=== PATIENT | female | born 1990 | race Hispanic/Latino ===

== ENCOUNTER 2016-07-04 11:39 | Emergency (ER) | payer MEDICAID ==
--- NOTE | 2016-07-04 12:10 | Emergency Department Report ---
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 She admits to fever and chills. Also complains of chest pain in the center. She reports that the pain is increased with lying down. She admits to nausea vomiting salicylate complains of upper abdominal pains. She denies any diarrhea pain for urination vaginal bleeding or vaginal discharge patient is not sure of her last menstrual period was either April or March. She also complains of lower abdomen - Exam Vital Signs: Vital Signs 07/04/16 11:54 Temperature 98.3 F Pulse Rate 96 H Respiratory 18 Rate Blood Pressure 125/77 O2 Sat by Pulse 100 Oximetry Physical Exam: Patient is alert and oriented 3. Cardiovascular S1-S2 regular rate and rhythm Respiratory clear to auscultation bilateral Abdomen soft nontender nondistended normal bowel sounds MSE screening note: Focused history and physical exam performed. Due to findings the following was ordered: Patient was evaluated by this MSE provider. We'll refer her to the main ER. Abdominal protocol ordered. ED Disposition for MSE Condition: Stable Instructions: Abdominal Pain (ED)
[2016-07-04 12:51] LABS: Basophils % (Auto) 0.2 % (0.0-1.8); Eosinophils % (Auto) 0.4 % (0.0-4.3); Hematocrit 39.7 % (30.3-42.9); Mean Corpuscular HGB Conc 33 % (30-34); Mean Corpuscular Hemoglobin 27 pg (28-32); Mean Corpuscular Volume 83 fl (79-97); Platelet Count 212 K/mm3 (140-440); Red Blood Count 4.77 M/mm3 (3.65-5.03); Red Cell Distribution Width 13.8 % (13.2-15.2); White Blood Count 7.6 K/mm3 (4.5-11.0)
[2016-07-04 13:14] LABS: Alanine Aminotransferase 62 units/L (7-56); Albumin 3.8 g/dL (3.9-5); Albumin/Globulin Ratio 1.2 %; Alkaline Phosphatase 57 units/L (35-129); Anion Gap 20 mmol/L; Bilirubin,Total 0.4 mg/dL (0.1-1.2); Blood Urea Nitrogen 5 mg/dL (7-17); Calcium 8.9 mg/dL (8.4-10.2); Carbon Dioxide 21 mmol/L (22-30); Chloride 100.8 mmol/L (98-107); Glucose 83 mg/dL (65-100); Lipase 15 units/L (13-60); Potassium 4.3 mmol/L (3.6-5.0); Sodium 137 mmol/L (137-145); Total Protein 7.1 g/dL (6.3-8.2)
[2016-07-04 19:59] LABS: Bilirubin,Urine NEG (Negative); Blood,Urine NEG (Negative); Ketones,Urine 20 mg/dL (Negative); Leukocyte Esterase,Urine TR (Negative); Mucus,Urine 2+ /HPF; Nitrite,Urine NEG (Negative); Protein,Urine <15 mg/dL mg/dL (Negative); Urobilinogen,Urine < 2.0 mg/dL (<2.0)
[2016-07-04] MEDS ORDERED: ZOFRAN IV ONE (20:29)
[2016-07-04] MEDS ORDERED: TYLENOL PO ONE (20:30)
--- NOTE | 2016-07-04 20:56 | Emergency Department Report ---
- General Chief Complaint: Abdominal Pain Stated Complaint: CHEST PAIN/VOMITTING/CHILLS Time Seen by Provider: 07/04/16 12:04 Source: patient Mode of arrival: Ambulatory Limitations: No Limitations - History of Present Illness Initial Comments: 26-year-old female with a past medical history asthma, borderline diabetes, and borderline hypertension presents to the hospital complains of cough and cold symptoms 10 days. Patient is a couple of a green sputum. Fever high of 102. Also has intermittent nausea vomiting and epigastric pain. 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 Patient informed that she has a positive test she states she has several home positive test as well. LMP possibly 04/02/2016. Patient denies vaginal discharge, bleeding, or painful urination. No care. Patient states she has never had a pelvic before in her life and this is her first . Patient states she did receive her flu shot this year - Related Data Home Medications Medication Instructions Recorded Confirmed Last Taken Pnv95/Ferrous Fumarate/FA 1 tab PO DAILY 07/04/16 07/04/16 Unknown [ Caplet] Previous Rx's Medication Instructions Recorded Last Taken Type Ondansetron [Zofran Odt] 4 mg PO Q8HR PRN #20 tab.rapdis 07/04/16 Unknown Rx guaiFENesin DM [Robitussin Dm] 10 ml PO Q6HR PRN #20 udc 07/04/16 Unknown Rx Allergies Allergy/AdvReac Type Severity Reaction Status Date / Time terfenadine [From Seldane] Allergy Rash Verified 06/16/16 14:59 ED Review of Systems ROS: Stated complaint: CHEST PAIN/VOMITTING/CHILLS Other details as noted in HPI Comment: All other systems reviewed and negative Other: Constitutional: As per HPI Eyes: No eye pain visual changes ENT: No ear pain or throat pain Neck: Denies pain Respiratory: As per HPI Cardiovascular: Denies chest pain, palpitations, syncope GI: As per HPI : Denies dysuria, urinary frequency, or urgency Musculoskeletal: Denies back pain, joint swelling Skin: Denies rash, lesions, erythema Neurologic: Denies headache, numbness, weakness Psychiatric: Denies suicidal ideation, hallucinations ED Past Medical Hx - Past Medical History Previous Medical History?: Yes Hx Hypertension: Yes ("borderline" not being treated) Hx Diabetes: Yes ("borderline" not being treated) Hx GERD: Yes Hx Headaches / Migraines: Yes (migraines) Hx Asthma: Yes (last used inhaler 2 weeks ago) Hx HIV: No - Surgical History Past Surgical History?: No - Social History Smoking Status: Never Smoker Substance Use Type: None - Medications Home Medications: Home Medications Medication Instructions Recorded Confirmed Last Taken Type Ondansetron [Zofran Odt] 4 mg PO Q8HR PRN #20 tab.rapdis 07/04/16 Unknown Rx Pnv95/Ferrous Fumarate/FA 1 tab PO DAILY 07/04/16 07/04/16 Unknown History [ Caplet] guaiFENesin DM [Robitussin Dm] 10 ml PO Q6HR PRN #20 udc 07/04/16 Unknown Rx ED Physical Exam - General Limitations: No Limitations - Other Other exam information: General: No limitations, patient is alert in no acute distress Head exam: Atraumatic, normocephalic Eyes exam: Normal appearance, pupils equal reactive to light, extraocular movements intact ENT: Moist mucous membrane, normal oropharynx Neck exam: Normal inspection, full range of motion, no meningismus nontender Respiratory exam: Clear to auscultation bilateral, no wheezes, rales, crackles Cardiovascular: Normal rate and rhythm, normal heart sounds Abdomen: Soft, nondistended, epigastric tenderness, with normal bowel sounds, no rebound, or guarding Extremity: Full range of motion normal inspection no deformity Back: Normal Inspection, full range of motion, no tenderness Neurologic: Alert, oriented x3, cranial nerves intact, no motor or sensory deficit Psychiatric: normal affect, normal mood Skin: Warm, dry, intact ED Course Vital Signs 07/04/16 07/04/16 07/04/16 11:54 21:28 21:34 Temperature 98.3 F Pulse Rate 96 H Respiratory 18 18 18 Rate Blood Pressure 125/77 Blood Pressure [Left] O2 Sat by Pulse 100 100 Oximetry 07/04/16 22:08 Temperature Pulse Rate 90 Respiratory 18 Rate Blood Pressure Blood Pressure 118/78 [Left] O2 Sat by Pulse 100 Oximetry - Reevaluation(s) Reevaluation #1: 07/04/16 20:56 Normal saline, Zofran, and Tylenol - Consultations Consultation #1: 07/04/16 20:[address] Barragan label press operator on-call and agrees that it is a sinus rhythm EKG ED Medical Decision Making - Lab Data Result diagrams: 07/04/16 12:36 07/04/16 12:36 Influenza negative - EKG Data -: EKG Interpreted by Me (sinus rate [address] elevation or T-wave inversions) - Radiology Data Radiology results: report reviewed Abdominal ultrasound: Cholelithiasis without findings of cholecystitis. Hepatic steatosis Ultrasound OB: Single living IUP 17 weeks and 4 days - Medical Decision Making Patient likely has a viral syndrome. Lab work unremarkable. Ultrasound shows cholelithiasis but no cholecystitis. She'll be treated symptomatically with nausea medication and Tylenol. Outpatient follow-up and care will be encouraged - Differential Diagnosis gastroenteritis, viral syndrome, biliary colic, UTI, morning sickness Critical Care Time: No Critical care attestation.: If time is entered above; I have spent that time in minutes in the direct care of this critically ill patient, excluding procedure time. ED Disposition Clinical Impression: 17 weeks gestation of , Cholelithiasis, Viral syndrome Disposition: DISCHARGED TO HOME OR SELFCARE Is pt being admited?: No Does the pt Need Aspirin: No Condition: Stable Instructions: Viral Syndrome (ED), Acute Nausea and Vomiting (ED), Biliary Colic (ED) Additional Instructions: Take Tylenol as needed for pain. Follow-up with the [facility] doctor provided and primary care doctor. Return if symptoms worsen Prescriptions: guaiFENesin DM [Robitussin Dm] 10 ml PO Q6HR PRN #20 udc PRN Reason: Cough Ondansetron [Zofran Odt] 4 mg PO Q8HR PRN #20 tab.rapdis PRN Reason: Nausea And Vomiting Referrals: RUDY FOSS MD [Primary Care Provider] - 3-5 Days MERARY SANDERS MD [Staff Physician] - 3-5 Days (residential interior designer ) Time of Disposition: 23:24
[2016-07-04] MEDS ORDERED: NACL 0.9% 1000 ML 1,000 ML IV SCH (21:00)
[2016-07-05 00:14] VITALS: BP 118/70
--- NOTE | 2016-07-07 18:15 | Ultrasound Report ---
FINAL REPORT EXAM: US OB \T\gt; = 14 WEEKS FETUS HISTORY: pregancy, n,v COMPARISONS: None. FINDINGS: Limited 2nd trimester transabdominal grayscale, color and M-mode ultrasound Single living intrauterine gestation with recorded cardiac activity of 163 beats per minute. Fundal placenta. Amniotic fluid volume is within normal limits. The cervix appears closed and measures approximately 3.9 cm in length. Biparietal diameter is 3.8 cm. Head circumference is 13.8 cm. Abdominal circumference is 11.8 cm. Femoral length is 2.2 cm. Composite measurements correspond to estimated gestational age 17 weeks 4 days and estimated delivery date of 12/08/2016. IMPRESSION: Single living intrauterine without evident complication and with estimated gestational age of 17 weeks 4 days. Follow-up detailed anatomy scan is recommended at 20 weeks gestational age.
--- NOTE | 2016-07-07 18:15 | Ultrasound Report ---
FINAL REPORT EXAM: US ABDOMEN LIMITED HISTORY: upper abd pain n,v COMPARISONS: None FINDINGS: Grayscale and color Doppler ultrasound evaluation of the right upper abdomen Liver is normal in size and contour. Hepatic parenchymal echogenicity is diffusely increased. No parenchymal lesion identified. No intra or extrahepatic biliary ductal dilatation. The common duct measures approximately 4 millimeters in caliber. There is an 8 millimeter echogenic shadowing stone in the gallbladder lumen. Gallbladder wall measures approximately 2-3 millimeters. No pericholecystic edema. Imaged portion of the pancreatic head is sonographically unremarkable. The remainder of the pancreas is not well seen secondary to overlying bowel gas. No abdominal ascites or free fluid in Morison's pouch. The right kidney measures up to 12 cm in length and is without hydronephrosis or echogenic shadowing foci to suggest nephrolithiasis. IMPRESSION: Cholelithiasis without additional sonographic findings of cholecystitis. Hepatic steatosis.
== END 2016-07-04 23:55 | disposition home or self-care (01) ==
LOC: ED 11:39
DX: O99.612 Diseases of the digestive system complicating pregnancy, second trimester (principal); K80.20 Calculus of gallbladder without cholecystitis without obstruction; B34.9 Viral infection, unspecified; I10 Essential (primary) hypertension; E11.9 Type 2 diabetes mellitus without complications; K52.9 Noninfective gastroenteritis and colitis, unspecified; J45.909 Unspecified asthma, uncomplicated; Z3A.17 17 weeks gestation of pregnancy
CPT/HCPCS: 36415; 76705; 76805; 80053; 81001; 83690; 84702; 84703; 85025; 87400; 93005; 93010; 96361; 96374; 99284; J2405; J7030

== ENCOUNTER 2016-10-26 18:09 | Outpatient (CLI) | payer MEDICAID ==
[2016-10-26] MEDS ORDERED: LACTATED RINGERS 500 ML IV ONE (18:36)
[2016-10-26 18:40] VITALS: BP 99/60
[2016-10-26] MEDS ORDERED: VISTARIL PO PRN (21:30)
== END 2016-10-26 21:55 | disposition home or self-care (01) ==
LOC: TRG 18:09 → LD 18:11 → TRG 18:13
PROVIDERS: ATTEND Obstetrics & Gynecology
DX: O47.1 False labor at or after 37 completed weeks of gestation (principal); Z3A.38 38 weeks gestation of pregnancy
CPT/HCPCS: 59025; Q0177

== ENCOUNTER 2016-11-05 17:19 | Outpatient (CLI) | payer MEDICAID ==
[2016-11-05 18:12] LABS: Bilirubin,Urine NEG (Negative); Blood,Urine NEG (Negative); Ketones,Urine 20 mg/dL (Negative); Leukocyte Esterase,Urine NEG (Negative); Mucus,Urine 2+ /HPF; Nitrite,Urine NEG (Negative); Protein,Urine <15 mg/dL mg/dL (Negative); Urobilinogen,Urine < 2.0 mg/dL (<2.0)
[2016-11-05] MEDS ORDERED: LACTATED RINGERS 1,000 ML IV ONE (19:23)
[2016-11-05] MEDS ORDERED: ZOFRAN IV ONE (19:23)
[2016-11-05 20:12] LABS: Basophils % (Auto) 0.3 % (0.0-1.8); Eosinophils % (Auto) 0.4 % (0.0-4.3); Hematocrit 33.7 % (30.3-42.9); Hemoglobin 11.5 gm/dl (10.1-14.3); Mean Corpuscular HGB Conc 34 % (30-34); Mean Corpuscular Hemoglobin 28 pg (28-32); Mean Corpuscular Volume 83 fl (79-97); Platelet Count 181 K/mm3 (140-440); Red Blood Count 4.09 M/mm3 (3.65-5.03); Red Cell Distribution Width 12.9 % (13.2-15.2); White Blood Count 9.2 K/mm3 (4.5-11.0)
[2016-11-05 20:28] LABS: Alanine Aminotransferase 8 units/L (7-56); Albumin 3.2 g/dL (3.9-5); Albumin/Globulin Ratio 0.9 %; Alkaline Phosphatase 113 units/L (35-129); Amylase 32 units/L (27-131); Anion Gap 18 mmol/L; Blood Urea Nitrogen 6 mg/dL (7-17); Calcium 8.9 mg/dL (8.4-10.2); Carbon Dioxide 23 mmol/L (22-30); Chloride 101.7 mmol/L (98-107); Glucose 82 mg/dL (65-100); Lipase 15 units/L (13-60); Potassium 3.9 mmol/L (3.6-5.0); Sodium 139 mmol/L (137-145); Total Protein 6.9 g/dL (6.3-8.2)
[2016-11-05] MEDS ORDERED: AMBIEN PO PRN (22:08)
[2016-11-05] MEDS ORDERED: COLACE PO PRN (22:08)
[2016-11-05] MEDS ORDERED: MILK OF MAGNESIA PO PRN (22:08)
[2016-11-05] MEDS ORDERED: TYLENOL PO PRN (22:08)
[2016-11-05] MEDS ORDERED: ALUM-MAG HYDROX-SIMETH 200-200-20MG/5ML PO PRN (22:08)
[2016-11-05] MEDS ORDERED: ZOFRAN IV PRN (22:25)
--- NOTE | 2016-11-05 23:03 | Ultrasound Report ---
FINAL REPORT EXAM: US OB BPP WO NON-STRESS HISTORY: well being COMPARISONS: 07/04/2016 FINDINGS: Limited transabdominal 3rd trimester ultrasound for evaluation of amniotic fluid index and biophysical profile Single living intrauterine . Amniotic fluid index is approximately 5 centimeters. Biophysical profile score is 8/8 with 2 points awarded individually for breathing movements, motion, posture and tone and amniotic fluid volume. Recorded cardiac activity of 153 beats per minute. IMPRESSION: Amniotic fluid index is within normal limits and biophysical profile score is 8/8.
--- NOTE | 2016-11-05 23:06 | Ultrasound Report ---
FINAL REPORT EXAM: US OB LIMITED HISTORY: well being; SPENCER COMPARISONS: None. FINDINGS: Limited transabdominal 3rd trimester grayscale, color and M-mode ultrasound Single living intrauterine . Amniotic fluid index is approximately 5 centimeters. Biophysical profile score is 8/8 with 2 points awarded individually for breathing movements, motion, posture and tone and amniotic fluid volume. Recorded cardiac activity of 163 beats per minute. Estimated gestational age is 36 weeks 0 days, which is concordant with 2nd trimester ultrasound dating. IMPRESSION: Single living intrauterine without evident complication, as above.
--- NOTE | 2016-11-06 01:29 | Ultrasound Report ---
FINAL REPORT EXAM: US ABDOMEN LIMITED HISTORY: RUQ pain TECHNIQUE: Real-time sonography was performed of the right upper quadrant and images are submitted for interpretation. PRIORS: None. FINDINGS: The liver has a normal homogeneous echotexture without focal lesions. There is a 1.9 cm stone in an otherwise normal-appearing gallbladder. There is no evidence of biliary dilatation, the common bile duct measures 5 mm. The pancreas has a normal echogenicity and appearance. The visualized segments of the abdominal aorta and inferior vena cava appear normal. The right kidney appears normal in size, shape and echogenicity, measuring 12.0 x 5.4 x 6.3 cm. IMPRESSION: Cholelithiasis without sonographic evidence of acute cholecystitis. No significant interval change from the previous exam.
[2016-11-06] MEDS: LACTATED RINGERS 1,000 ML IV SCH ×2 (02:02→08:53)
[2016-11-06 04:59] LABS: Bacteria,Urine 2+ /HPF (Negative); Bilirubin,Urine NEG (Negative); Blood,Urine NEG (Negative); Ketones,Urine 20 mg/dL (Negative); Leukocyte Esterase,Urine NEG (Negative); Mucus,Urine 3+ /HPF; Nitrite,Urine NEG (Negative); Protein,Urine <15 mg/dL mg/dL (Negative); Urobilinogen,Urine < 2.0 mg/dL (<2.0)
[2016-11-06] MEDS ORDERED: PRENATAL VITAMIN PO SCH (10:00)
--- NOTE | 2016-11-06 11:38 | Ultrasound Report ---
COMPLETE OB ULTRASOUND: Gestation: talbert Position: cephalic SPENCER = 8.1 cm Heart Rate: 135 BPM BPD: 8.8 cm = 35 w 2 d HC: 31.7 cm = 35 w 4 d AC: 29.1 cm = 33 w 0 d FL: 6.8 cm = 34 w 5 d HC/AC Ratio: 1.09 Cephalic Index: 79.8 Estimated Weight: 2351 grams Clinical age = 36 w 1 d EDC: 12/03/16 US Gest. Age = 34 w 4 d EDC: 12/14/16
[2016-11-06 12:22] VITALS: BP 104/57
--- NOTE | 2016-11-06 13:19 | History and Physical Report ---
History of Present Illness Date of examination: 11/05/16 Date of admission: 11/05/16 Chief complaint: nausea and vomiting abdominal pain ruq cramping pain History of present illness: This is a 26 yo at 36 weeks came in for abdominal pain and nausea and vomiting for the least 3 days. She was unable to keep any food down. She is a patient of [place] that sees Alma Delia JENKINS exclusively. She has ahx of bipolar on no drugs per ( ER). She has cholethiasis without cholystitis. She is morbidly obesed. 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 ) - Obstetrical History : 1 Medications and Allergies Allergies Allergy/AdvReac Type Severity Reaction Status Date / Time terfenadine [From Seldane] Allergy Rash Verified 06/16/16 14:59 Home Medications Medication Instructions Recorded Confirmed Last Taken Type Ondansetron [Zofran Odt] 4 mg PO Q8HR PRN #20 tab.rapdis 07/04/16 Unknown Rx Pnv95/Ferrous Fumarate/FA 1 tab PO DAILY 07/04/16 07/04/16 Unknown History [ Caplet] guaiFENesin DM [Robitussin Dm] 10 ml PO Q6HR PRN #20 udc 07/04/16 Unknown Rx Pantoprazole [Protonix] 40 mg PO BID PRN #60 tablet 11/06/16 Unknown Rx oxyCODONE /ACETAMINOPHEN [Percocet 1 tab PO Q6HR PRN #30 tablet 11/06/16 Unknown Rx 5/325] Active Meds: Active Medications Acetaminophen (Tylenol) 650 mg PO Q4H PRN PRN Reason: Pain MILD(1-3)/Fever >100.5/MURPHY Al Hydrox/Mg Hydrox/Simethicone (Alum-Mag Hydrox-Simeth [phone]/5ml) 30 ml PO Q6H PRN PRN Reason: Indigestion Docusate Sodium (Colace) 100 mg PO Q12H PRN PRN Reason: Constipation Lactated Ringer's (Lactated Ringers) 1,000 mls @ 125 mls/hr IV DIRECT MARLENE Last Admin: 11/06/16 08:53 Dose: 125 mls/hr Magnesium Hydroxide (Milk Of Magnesia) 30 ml PO QHS PRN PRN Reason: Laxative Effect Multivitamins/Iron/Calcium ( Vitamin) 1 each PO QDAY MARLENE Ondansetron HCl (Zofran) 4 mg IV Q8H PRN PRN Reason: Nausea And Vomiting Zolpidem Tartrate (Ambien) 10 mg PO ONCE PRN PRN Reason: Sleep Last Admin: 11/06/16 01:53 Dose: 10 mg Review of Systems Gastrointestinal: abdominal pain, nausea, vomiting Genitourinary: leakage of fluid - Vital Signs Vital signs: Vital Signs Pulse BP 95 H 142/96 11/05/16 17:57 11/05/16 17:57 Temp Pulse Resp BP Pulse Ox 97.2 F L 89 18 104/57 98 11/06/16 12:21 11/06/16 12:21 11/06/16 12:21 11/06/16 12:21 11/06/16 12:21 - Physical Exam Breasts: Positive: deferred Cardiovascular: Regular rate, Normal S1 Lungs: Positive: Clear to auscultation, Normal air movement Abdomen: Positive: normal appearance, soft, tenderness (urq), normal bowel sounds Genitourinary (Female): Positive: normal external genitalia, normal perenium Vulva: both: normal Vagina: Positive: normal moisture Uterus: Positive: normal size, normal contour Anus/Rectum: Positive: normal perianal skin, heme negative Extremities: Positive: normal Deep Tendon Reflex Grade: Normal +2 - Obstetrical FHR: category 1 Cervical Dilatation: 1 Cervical Effacement Percentage: 0 station: -4 Uterine Contraction Frequency (min): none Uterine Contraction Duration: none Uterine Tone Measurement Phase: Resting Results Result Diagrams: 11/05/16 19:36 11/05/16 19:36 Abnormal lab results 11/05/16 11/05/16 Range/Units 19:36 19:36 RDW 12.9 L (13.2-15.2) % Seg Neutrophils % 70.1 H (40.0-70.0) % BUN 6 L (7-17) mg/dL Creatinine 0.4 L (0.7-1.2) mg/dL Albumin 3.2 L (3.9-5) g/dL All other labs normal. Ultrasound: report reviewed (BPP 12/16 EDC 12/03/16 36 weeks SPENCER 8.1 FHR 135 EFW 2351 ) Assessment and Plan 1. Head IUP at 36 weeks 2. Abdominal Pain H/O Gallstones 3. Mildly Decreased SPENCER (Initial 5.2 cm and Repeated today at 8.1 cm) 4. Borderline IUGR - EFW at 10% with AC at 2% 5. Bipolar 6. MO 1. Cord Dopplers because of 10% weight prior to discharge if normal will discharge home 2. Encourage to keep schedduled appt with [facility] 3. Await GI consult ( appreciate consult) 4.. Pysch consult sent ( consider delinquency prevention social worker or case management )
--- NOTE | 2016-11-06 14:01 | Consultation ---
History of Present Illness Consult date: 11/06/16 Requesting physician: VITALIY WOO History of present illness: This is a 26 yo at 36 weeks came in for abdominal pain and nausea and vomiting for the least 3 days. Reports pain in middle to lower abd area. Denies Vag Bleeding Denies gush of fluid Occ ctx BPP/SPENCER on 11/05/16 initially 5.2 - Neg for rupture Positive Trich - On Flagyl BPP Repeated today EFW at 2351 grams (10%) with AC at 2% and SPENCER now up to 8.1 cm Seen by GI today for h/o GB ds - report pending She was unable to keep any food down. - Now hungry and wants to eat She is a patient of [facility] that sees Alma Delia DAVIS exclusively. She has a hx of bipolar on no drugs per ( ER). She has cholethiasis without cholystitis. 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 ) - Obstetrical History : 1 Medications and Allergies Allergies Allergy/AdvReac Type Severity Reaction Status Date / Time terfenadine [From Seldane] Allergy Rash Verified 06/16/16 14:59 Home Medications Medication Instructions Recorded Confirmed Last Taken Type Ondansetron [Zofran Odt] 4 mg PO Q8HR PRN #20 tab.rapdis 07/04/16 Unknown Rx Pnv95/Ferrous Fumarate/FA 1 tab PO DAILY 07/04/16 07/04/16 Unknown History [ Caplet] guaiFENesin DM [Robitussin Dm] 10 ml PO Q6HR PRN #20 udc 07/04/16 Unknown Rx Active Meds: Active Medications Acetaminophen (Tylenol) 650 mg PO Q4H PRN PRN Reason: Pain MILD(1-3)/Fever >100.5/MURPHY Al Hydrox/Mg Hydrox/Simethicone (Alum-Mag Hydrox-Simeth [phone]/5ml) 30 ml PO Q6H PRN PRN Reason: Indigestion Docusate Sodium (Colace) 100 mg PO Q12H PRN PRN Reason: Constipation Lactated Ringer's (Lactated Ringers) 1,000 mls @ 125 mls/hr IV DIRECT MARLENE Last Admin: 11/06/16 08:53 Dose: 125 mls/hr Magnesium Hydroxide (Milk Of Magnesia) 30 ml PO QHS PRN PRN Reason: Laxative Effect Multivitamins/Iron/Calcium ( Vitamin) 1 each PO QDAY MARLENE Ondansetron HCl (Zofran) 4 mg IV Q8H PRN PRN Reason: Nausea And Vomiting Zolpidem Tartrate (Ambien) 10 mg PO ONCE PRN PRN Reason: Sleep Last Admin: 11/06/16 01:53 Dose: 10 mg - Vital Signs Vital signs: Vital Signs Pulse BP 95 H 142/96 11/05/16 17:57 11/05/16 17:57 Temp Pulse Resp BP Pulse Ox 97.2 F L 89 18 104/57 98 11/06/16 12:21 11/06/16 12:21 11/06/16 12:21 11/06/16 12:21 11/06/16 12:21 Results Result Diagrams: 11/05/16 19:36 11/05/16 19:36 Abnormal lab results 11/05/16 11/05/16 Range/Units 19:36 19:36 RDW 12.9 L (13.2-15.2) % Seg Neutrophils % 70.1 H (40.0-70.0) % BUN 6 L (7-17) mg/dL Creatinine 0.4 L (0.7-1.2) mg/dL Albumin 3.2 L (3.9-5) g/dL All other labs normal. Assessment and Plan 1. Head IUP at 36 weeks 2. Abdominal Pain H/O Gallstones 3. Mildly Decreased SPENCER (Initial 5.2 cm and Repeated today at 8.1 cm) 4. Borderline IUGR - EFW at 10% with AC at 2% 5. Bipolar 6. MO Recommendations: 1. Please obtain Cord Dopplers prior to discharge 2. If dopplers normal would allow discharge with close [facility] FU 3. Patient has apt with [facility] tomorrow 4. Weekly FU with [facility] for A-P Surveillance 5. Call for DFM's and continue hydration 6. Discussed with both Dr. Yanni Woo and RYAN Flannery 7. support services rep if Pysch issues
--- NOTE | 2016-11-06 16:03 | Ultrasound Report ---
Umbilical cord Doppler imaging: well being. The fetus is approximately 36 weeks one day of gestation. Imaging of 3 free umbilical loops demonstrate an average systolic to diastolic ratio 2.72. There is a persistent normal waveform. This lies just under the 75 percentile range. The average resistive index is 0.63 which falls midway between the 50th and 95th percentile.
--- NOTE | 2016-11-06 16:21 | Discharge Summary ---
Providers - Providers Date of Admission: 11/05/16 Date of discharge: 11/06/16 Attending physician: VITALIY PHILLIPS MD 11/05/16 22:08 Consult to Physician [CONS] Routine Consulting Provider: VITALIY PHILLIPS Reason For Exam: [facility] Place consult to:: [place] Notified:: yes Phone number called:: [phone] Was contact made?: Yes If yes, spoke with:: Wang Time called:: 10:20 Comment:: Megan Yuan 11/05/16 22:27 Consult to Physician [CONS] Routine Consulting Provider: JAMES RAVI Reason For Exam: nausea and vomiting in third trimester Place consult to:: gastroeterology Notified:: OFFICE Phone number called:: [phone] Was contact made?: Yes If yes, spoke with:: SCAR Time called:: 23:36 Comment:: DR RAVI CALLED BACK Primary care physician: RUDY FOSS Hospitalization Reason for admission: other (n/v , gall stone , low fluid ) Discharge diagnosis: other (seen by GI and psych and MFM rescan BPP 8/8 Sherley from 5 to 8 and diastolic flow nl ) Plan - Discharge Medications Prescriptions: oxyCODONE /ACETAMINOPHEN [Percocet 5/325] 1 tab PO Q6HR PRN #30 tablet PRN Reason: Pain Pantoprazole [Protonix] 40 mg PO BID PRN #60 tablet PRN Reason: reflux - Provider Discharge Summary Additional instructions: [] Smoking cessation referral if applicable(refer to patient education folder for contact #) [] Refer to [employer] Booklet Call your doctor immediately for: * Fever > 100.5 * Heavy vaginal bleeding ( >1 pad per hour) * Severe persistent headache * Shortness of breath * Reddened, hot, painful area to leg or breast * Drainage or odor from incision. * Keep incision clean and dry at all times and follow doctor's instructions regarding bathing/showering - Follow up plan Follow up: RUDY FOSS MD [Primary Care Provider] - 7 Days
== END 2016-11-06 15:55 | disposition home or self-care (01) ==
LOC: TRG 17:19 → LD 17:21 → TRG 11-06 15:55
PROVIDERS: ATTEND Obstetrics & Gynecology
DX: O99.613 Diseases of the digestive system complicating pregnancy, third trimester (principal); K80.20 Calculus of gallbladder without cholecystitis without obstruction; O99.313 Alcohol use complicating pregnancy, third trimester; O99.333 Smoking (tobacco) complicating pregnancy, third trimester; O21.2 Late vomiting of pregnancy; O26.893 Other specified pregnancy related conditions, third trimester; R10.11 Right upper quadrant pain; Z3A.36 36 weeks gestation of pregnancy
CPT/HCPCS: 36415; 76815; 76819; 80053; 81001; 82150; 83690; 85025; J2405; J7120; 59025; 76705; 76816; 76820; 86850; 86900; 86901; 96360; 96361

== ENCOUNTER 2016-11-08 21:45 | Outpatient (CLI) | payer MEDICAID ==
[2016-11-08] MEDS ORDERED: LACTATED RINGERS 500 ML IV ONE (21:58)
[2016-11-08 22:18] VITALS: BP 111/66
[2016-11-08 22:36] LABS: Bacteria,Urine 1+ /HPF (Negative); Bilirubin,Urine NEG (Negative); Blood,Urine NEG (Negative); Ketones,Urine TR mg/dL (Negative); Leukocyte Esterase,Urine TR (Negative); Mucus,Urine 3+ /HPF; Nitrite,Urine NEG (Negative); Urobilinogen,Urine < 2.0 mg/dL (<2.0)
[2016-11-08] MEDS ORDERED: ROCEPHIN 1,000 MG in NACL 0.9% 50 ML IV ONE (22:44)
[2016-11-08] MEDS ORDERED: LACTATED RINGERS 1,000 ML ONE (22:44)
[2016-11-08] MEDS ORDERED: ROCEPHIN/NS 1 GM/50 ML 1 GM/50 ML BAG IV SCH (23:00)
== END 2016-11-08 23:50 | disposition home or self-care (01) ==
LOC: TRG 21:45
PROVIDERS: ATTEND Obstetrics & Gynecology
DX: O47.03 False labor before 37 completed weeks of gestation, third trimester (principal); Z3A.36 36 weeks gestation of pregnancy
CPT/HCPCS: 59025; 81001; 96360; 96365; J0696; J7120

== ENCOUNTER 2016-11-12 18:09 | Outpatient (CLI) | payer MEDICAID ==
[2016-11-12 19:15] VITALS: BP 110/64
--- NOTE | 2016-11-13 16:35 | Ultrasound Report ---
Limited transabdominal OB ultrasound. Findings: A single IUP is identified in a cephalic presentation. The SPENCER is normal at 11 cm area heart rate is 126 beats per minute.
--- NOTE | 2016-11-13 16:36 | Ultrasound Report ---
BIOPHYSICAL PROFILE: 2 - breathing movements 2 - movements 2 - posture and tone 2 - Qualitative amniotic fluid volume 8 - TOTAL SCORE OF POSSIBLE 8 Heart Rate (bpm) 146
== END 2016-11-12 20:30 | disposition home or self-care (01) ==
LOC: TRG 18:09 → LD 18:33 → TRG 20:30
PROVIDERS: ATTEND Obstetrics & Gynecology
DX: O47.03 False labor before 37 completed weeks of gestation, third trimester (principal); Z3A.36 36 weeks gestation of pregnancy
CPT/HCPCS: 76815; 76819

== ENCOUNTER 2016-11-17 14:45 | Outpatient (CLI) | payer MEDICAID ==
--- NOTE | 2016-11-18 08:59 | Ultrasound Report ---
ULTRASOUND BIOPHYSICAL PROFILE: History: well being Technique: Transabdominal ultrasound with Doppler interrogation. 2 - breathing movements 2 - movements 2 - posture and tone 2 - Qualitative amniotic fluid volume 8 - TOTAL SCORE OF POSSIBLE 8 Heart Rate (bpm) 132
--- NOTE | 2016-11-18 08:59 | Ultrasound Report ---
ULTRASOUND OB LIMITED History: well being Technique: Transabdominal ultrasound with Doppler interrogation. Gestation: Single Position: Cephalic Amniotic Fluid: Normal SPENCER = 11.1 cm Heart Rate: 138 BPM
[2016-11-19 17:19] VITALS: BP 129/64
== END 2016-11-17 16:00 | disposition home or self-care (01) ==
LOC: TRG 14:45
PROVIDERS: ATTEND Obstetrics & Gynecology
DX: O47.03 False labor before 37 completed weeks of gestation, third trimester (principal); Z3A.36 36 weeks gestation of pregnancy
CPT/HCPCS: 59025; 76815; 76819

== ENCOUNTER 2016-11-18 17:48 | Inpatient (IN) | payer MEDICAID ==
[2016-11-18] MEDS ORDERED: MINERAL OIL PO PRN (19:08)
[2016-11-18] MEDS ORDERED: AMBIEN PO PRN (19:08)
[2016-11-18] MEDS ORDERED: SUBLIMAZE IV PRN (19:08)
[2016-11-18] MEDS ORDERED: BRETHINE SUB-Q PRN (19:08)
[2016-11-18] MEDS ORDERED: XYLOCAINE 2% INFILTRATI ONE (19:08)
[2016-11-18] MEDS ORDERED: ePHEDrine SULFATE IV PRN (19:08)
[2016-11-18] MEDS ORDERED: BRETHINE IVP PRN (19:08)
--- NOTE | 2016-11-18 19:08 | History and Physical Report ---
History of Present Illness Date of examination: 11/18/16 Date of admission: 11/18/16 17:48 History of present illness: 26 yo EDC 12/04/16 @ 37.5 weeks gestation presents to labor and delivery for induction secondary to oligohydramnios with SPENCER (4.2cm) voiced by Dr. Gambino as 4cm. Late entry into care. Prental course complicated by bipolar disorder without medications, resistant trichomonas with positive LINUS x 2. Given Flagyl 500mg BID 11/17/16 for third attempt to treat. Positive for HSV2 with Valtrex, denies outbreaks or prodrome. Positive history of cholelithiasis with episodes of acute gastric insult of nausea, vomiting and pain. Treatment with PPIs ineffective Past History Past Medical History: other (bipolar disorder, cholelithiasis) Past Surgical History: no surgical history [employer] History: trichomonas Social history: lives with family - Obstetrical History Expected Date of Delivery: 12/04/16 Actual Gestation: 37 Week(s) 6 Day(s) : 1 Medications and Allergies Allergies Allergy/AdvReac Type Severity Reaction Status Date / Time terfenadine [From Seldane] Allergy Rash Verified 06/16/16 14:59 Review of Systems All systems: negative - Physical Exam Abdomen: Positive: normal appearance, soft, normal bowel sounds Genitourinary (Female): Positive: normal external genitalia, normal perenium Results Result Diagrams: 11/18/16 19:54 All other labs normal. Assessment and Plan A: IUP at 37.4 weeks oligohydramnios Unfavorable cervix Bipolar Disorder Trichomonas with inadequate treatment HSV 2 Morbid Obesity P: Active Induction of Labor Flagyl IV Start Trileptal after delivery
[2016-11-18] MEDS: CYTOTEC VAGINAL SCH (19:30)
[2016-11-18] MEDS ORDERED: PITOCin/NS 20 UNIT/1000ML DRIP 20 UNITS/1,000 ML BAG IV SCH (20:00)
[2016-11-18] MEDS ORDERED: PITOCin/NS 30 UNIT/500ML 30 UNITS/500 ML BAG IV SCH ×2 (20:00)
[2016-11-18 20:24] LABS: Hematocrit 36.2 % (30.3-42.9); Mean Corpuscular HGB Conc 33 % (30-34); Mean Corpuscular Hemoglobin 28 pg (28-32); Mean Corpuscular Volume 83 fl (79-97); Platelet Count 175 K/mm3 (140-440); Red Blood Count 4.38 M/mm3 (3.65-5.03); Red Cell Distribution Width 12.9 % (13.2-15.2); White Blood Count 10.3 K/mm3 (4.5-11.0)
[2016-11-18] MEDS: LACTATED RINGERS 1,000 ML IV SCH (21:30)
[2016-11-18] MEDS: FLAGYL/NS 1000 MG-200 ML 1,000 MG in VIAFLEX EMPTY CONTAINER 0 ML IV SCH (22:36)
[2016-11-19] MEDS: XANAX PO PRN ×2 (00:12→09:56)
[2016-11-19] MEDS: STADOL IV PRN ×3 (04:21→12:38)
[2016-11-19] MEDS: CYTOTEC VAGINAL SCH ×2 (05:10)
[2016-11-19] MEDS: FLAGYL/NS 1000 MG-200 ML 1,000 MG in VIAFLEX EMPTY CONTAINER 0 ML IV SCH (07:01)
[2016-11-19] MEDS ORDERED: ZOFRAN ONE (08:11)
[2016-11-19] MEDS: ZOFRAN IV PRN ×2 (08:15→16:36)
--- NOTE | 2016-11-19 08:57 | Progress Note ---
Assessment and Plan A: IUP at 39.5 weeks gestation Induction for oligohydramnios P: Ambulate for one ambulate Plan AROM Pitocin induction Subjective - Subjective Date of service: 11/19/16 Interval history: 26 yo EDC 12/04/16 @ 37.5 weeks gestation presents to labor and delivery for induction secondary to oligohydramnios with SPENCER (4.2cm) voiced by Dr. Gambino as 4cm. Late entry into care. Prental course complicated by bipolar disorder without medications, resistant trichomonas with positive LINUS x 2. Given Flagyl 500mg BID 11/17/16 for third attempt to treat. Positive for HSV2 with Valtrex, denies outbreaks or prodrome. Patient reports: new complaints, movement normal, contractions (Pain with contractions.), other (Request to ambulate) Objective - Vital Signs Vital Signs: Vital Signs - 12hr 11/18/16 11/19/16 11/19/16 20:56 02:35 06:00 Temperature 96.3 F L Pulse Rate 62 Pulse Rate [ 88 Right From Monitor] Respiratory 12 12 Rate Blood Pressure 94/55 Blood Pressure 102/56 [Right Arm] O2 Sat by Pulse Oximetry 11/19/16 11/19/16 11/19/16 06:03 06:05 06:07 Temperature 96.8 F L Pulse Rate 69 64 Pulse Rate [ 64 Right From Monitor] Respiratory 12 Rate Blood Pressure 93/51 Blood Pressure 95/51 [Right Arm] O2 Sat by Pulse 99 99 Oximetry 11/19/16 11/19/16 11/19/16 06:08 06:13 06:20 Temperature Pulse Rate 68 76 83 Pulse Rate [ Right From Monitor] Respiratory Rate Blood Pressure Blood Pressure [Right Arm] O2 Sat by Pulse 99 99 100 Oximetry 11/19/16 11/19/16 11/19/16 06:25 06:30 06:35 Temperature Pulse Rate 67 66 66 Pulse Rate [ Right From Monitor] Respiratory Rate Blood Pressure Blood Pressure [Right Arm] O2 Sat by Pulse 100 98 98 Oximetry 11/19/16 11/19/16 11/19/16 06:40 06:45 06:50 Temperature Pulse Rate 71 69 75 Pulse Rate [ Right From Monitor] Respiratory Rate Blood Pressure Blood Pressure [Right Arm] O2 Sat by Pulse 98 97 96 Oximetry 11/19/16 11/19/16 11/19/16 06:55 07:00 07:04 Temperature Pulse Rate 67 66 67 Pulse Rate [ Right From Monitor] Respiratory Rate Blood Pressure 100/55 Blood Pressure [Right Arm] O2 Sat by Pulse 100 100 Oximetry 11/19/16 11/19/16 11/19/16 07:05 07:10 07:15 Temperature Pulse Rate 74 63 76 Pulse Rate [ Right From Monitor] Respiratory Rate Blood Pressure Blood Pressure [Right Arm] O2 Sat by Pulse 100 100 99 Oximetry 11/19/16 11/19/16 11/19/16 07:20 07:21 07:25 Temperature Pulse Rate 70 70 91 H Pulse Rate [ Right From Monitor] Respiratory Rate Blood Pressure Blood Pressure [Right Arm] O2 Sat by Pulse 89 91 99 Oximetry 11/19/16 11/19/16 11/19/16 08:29 08:30 08:34 Temperature Pulse Rate 85 76 77 Pulse Rate [ Right From Monitor] Respiratory Rate Blood Pressure 109/66 Blood Pressure [Right Arm] O2 Sat by Pulse 96 98 Oximetry 11/19/16 11/19/16 08:39 08:44 Temperature Pulse Rate 80 77 Pulse Rate [ Right From Monitor] Respiratory Rate Blood Pressure Blood Pressure [Right Arm] O2 Sat by Pulse 97 97 Oximetry - Exam Breasts: deferred Abdomen: Present: normal appearance, soft. Absent: distention Vulva: both: normal Uterus: Present: normal, firm, tenderness FHR: category 1 Uterine Contraction Monitor Mode: External Cervical Dilatation: 1.5 Cervical Effacement Percentage: 80 station: +1 Uterine Contraction Pattern: Regular Uterine Tone Measurement Phase: Resting Uterine Contraction Intensity: Moderate Extremities: normal - Labs Labs: Abnormal Labs 11/18/16 19:54 RDW 12.9 L Laboratory Results - last 24 hr 11/18/16 11/18/16 19:54 19:54 WBC 10.3 RBC 4.38 Hgb 12.0 Hct 36.2 MCV 83 MCH 28 MCHC 33 RDW 12.9 L Plt Count 175 Blood Type O POSITIVE Antibody Screen TNR YESSICA Antibody Screen Negative
[2016-11-19] MEDS ORDERED: TYLENOL PO PRN (10:00)
[2016-11-19] MEDS: LACTATED RINGERS 1,000 ML IV SCH ×2 (11:05→13:26)
[2016-11-19] MEDS ORDERED: NARCAN 2 MG/2 ML IV PRN (14:00)
--- NOTE | 2016-11-19 14:00 | Anesthesia Consultation ---
Anesthesia Consult and Med Hx Date of service: 11/19/16 - Airway Anesthetic Teeth Evaluation: Good ROM Head & Neck: Adequate Mental/Hyoid Distance: Adequate Mallampati Class: Class II Intubation Access Assessment: Good - Pulmonary Exam CTA: Yes - Cardiac Exam Cardiac Exam: No Murmur - Pre-Operative Health Status ASA Pre-Surgery Classification: ASA2 Proposed Anesthetic Plan: Epidural - Pulmonary Hx Smoking: Yes (past hx) Hx Asthma: Yes (no inhaler) COPD: No Hx Pneumonia: Yes ( A CHILD) - Cardiovascular System Hx Hypertension: No - Central Nervous System Hx Seizures: No Hx Psychiatric Problems: Yes - Endocrine Hx Renal Disease: No Hx End Stage Renal Disease: No Hx Hypothyroidism: No Hx Hyperthyroidism: No - Hematic Hx Anemia: No Hx Sickle Cell Disease: No - Other Systems Hx Alcohol Use: No Hx Cancer: No
[2016-11-19] MEDS ORDERED: ePHEDrine SULFATE IV PRN (14:02)
[2016-11-19] MEDS ORDERED: fentaNYL-BUPIV 2 MCG/ML-0.125% 200 MCG/100 ML BAG EPIDURAL SCH (14:03)
--- NOTE | 2016-11-19 17:52 | Procedure Note ---
OB Delivery Note - Delivery Date of Delivery: 11/19/16 (5-7oz female @ 1721) Surgeon: LATASHA BARRIENTOS Estimated blood loss: 100cc - Vaginal Delivery presentation: vertex Delivery position: OA Intrapartum events: mult.variable deceleratio Delivery induction: misoprostol Delivery augmentation: rupture of membranes, pitocin Delivery monitor: external FHT, external uterine, internal FHT, internal uterine Route of delivery: Delivery placenta: spontaneous Delivery cord: nuchal cord (Loose NC x 1, easily reduced), 3 umbilical vessels Episiotomy: none Delivery laceration: 1st degree Delivery repair: vicryl Anesthesia: epidural - A at 1 minute: 7 at 5 minutes: 9 Gender: Female (Progressed rapidly from 5cm to complete. FHT's 70's while . NICu team called for delivery. viable female, stimulated to cry, place skin to skin. Apgars 7/9. Cord blood collected. Spont. placenta, Pitocin infusing. Fundus messaged firm, bleeding scant. Right Labial laceration repaired on 3.0 Vicryl on SH.)
[2016-11-19] MEDS ORDERED: ZOFRAN IV PRN (17:59)
[2016-11-19] MEDS ORDERED: DULCOLAX PR PRN (17:59)
[2016-11-19] MEDS ORDERED: PHENERGAN PO PRN (17:59)
[2016-11-19] MEDS ORDERED: TUCKS PAD TP PRN (17:59)
[2016-11-19] MEDS ORDERED: BENADRYL PO PRN (17:59)
[2016-11-19] MEDS ORDERED: MILK OF MAGNESIA PO PRN (17:59)
[2016-11-19] MEDS ORDERED: PHENERGAN PR PRN (17:59)
[2016-11-19] MEDS ORDERED: SODIUM CHLORIDE FLUSH SYRINGE 10 ML IV SCH (18:00)
[2016-11-19] MEDS: MOTRIN PO SCH ×2 (18:58→23:43)
[2016-11-19] MEDS: TRILEPTAL PO SCH (23:42)
[2016-11-19] MEDS: PROTONIX PO SCH (23:43)
[2016-11-20] MEDS: PROTONIX PO SCH ×3 (02:19→21:45)
[2016-11-20] MEDS: NORCO 5/325 PO PRN ×2 (04:50→20:16)
[2016-11-20] MEDS: MOTRIN PO SCH ×4 (04:51→23:50)
[2016-11-20] MEDS ORDERED: BOOSTRIX IM ONE (06:00)
--- NOTE | 2016-11-20 07:51 | Progress Note ---
Assessment and Plan O: VSS AF PP H/H: pending A: Stable PP Day 1 Bipolar Disorder P: SSC consult Subjective - Subjective Date of service: 11/20/16 Interval history: 26 yo EDC 12/04/16 @ 37.5 weeks gestation presents to labor and delivery for induction secondary to oligohydramnios with SPENCER (4.2cm) voiced by Dr. Gambino as 4cm. Late entry into care. Prental course complicated by bipolar disorder without medications, resistant trichomonas with positive LINUS x 2. Given Flagyl 500mg BID 11/17/16 for third attempt to treat. Positive for HSV2 with Valtrex, denies outbreaks or prodrome. Positive history of cholelithiasis with episodes of acute gastric insult of nausea, vomiting and pain. Treatment with PPIs ineffective Patient reports: appetite normal, voiding normally, pain well controlled, ambulating normally : doing well, bottle feeding Objective - Vital Signs Latest vital signs: Vital Signs Temp Pulse Pulse Resp BP BP Pulse Ox 11/20/16 01:20 97.9 F 75 18 101/53 11/19/16 20:40 98.1 F 61 18 131/71 11/19/16 19:15 72 109/62 11/19/16 19:00 96 H 105/57 11/19/16 18:56 65 98 11/19/16 18:51 70 96 11/19/16 18:46 70 97 11/19/16 18:45 85 109/58 11/19/16 18:41 71 98 11/19/16 18:36 72 98 11/19/16 18:35 97 F L 69 18 116/63 99 11/19/16 18:30 69 116/63 11/19/16 18:15 71 114/59 11/19/16 18:00 70 115/55 11/19/16 17:45 87 116/56 11/19/16 17:30 90 18 129/61 11/19/16 16:45 18 11/19/16 16:00 18 11/19/16 14:52 74 96/52 11/19/16 14:50 73 99/54 11/19/16 14:49 90 97 11/19/16 14:48 77 99/56 11/19/16 14:46 78 104/55 11/19/16 14:44 77 101/56 98 11/19/16 14:42 83 99/55 11/19/16 14:40 84 99/57 11/19/16 14:39 82 98 11/19/16 14:38 77 98/53 11/19/16 14:36 72 105/56 11/19/16 14:34 77 105/57 99 11/19/16 14:32 78 96/52 11/19/16 14:30 71 97/56 11/19/16 14:29 74 98 11/19/16 14:28 67 95/52 11/19/16 14:26 72 96/52 11/19/16 14:24 75 99/55 98 11/19/16 14:23 96.4 F L 78 18 92/54 98 11/19/16 14:22 77 92/54 11/19/16 14:20 81 89/52 11/19/16 14:19 73 97 11/19/16 14:18 73 88/53 11/19/16 14:16 71 91/55 11/19/16 14:14 76 92/51 98 11/19/16 14:12 75 92/51 11/19/16 14:10 83 93/53 11/19/16 14:09 77 98 11/19/16 14:08 74 95/54 11/19/16 14:06 78 94/51 11/19/16 14:04 79 93/50 97 11/19/16 14:02 86 92/55 11/19/16 14:00 78 90/51 11/19/16 13:59 85 97 11/19/16 13:58 79 90/52 11/19/16 13:56 81 99/55 11/19/16 13:55 71 111/56 11/19/16 13:54 71 98 11/19/16 13:50 75 108/57 11/19/16 13:49 87 98 11/19/16 13:48 85 113/60 11/19/16 13:46 77 114/58 11/19/16 13:44 78 115/63 99 11/19/16 13:10 64 94 11/19/16 13:05 66 93 11/19/16 13:00 63 96 11/19/16 12:55 66 94 11/19/16 12:50 64 94 11/19/16 12:45 63 93 11/19/16 12:44 67 91 11/19/16 12:40 69 96 11/19/16 12:35 70 97 11/19/16 12:30 72 97 11/19/16 12:25 64 97 11/19/16 12:20 64 96 11/19/16 12:15 73 97 11/19/16 12:09 66 95 11/19/16 12:04 68 98 11/19/16 11:59 82 94 11/19/16 11:54 75 98 11/19/16 11:47 69 94 11/19/16 11:42 69 96 11/19/16 11:37 69 94 11/19/16 11:32 68 94 11/19/16 11:27 66 95 11/19/16 11:22 71 94 11/19/16 11:17 74 92 11/19/16 11:12 72 95 11/19/16 11:09 73 94 11/19/16 11:07 72 94 11/19/16 11:04 74 105/56 11/19/16 11:03 70 94 11/19/16 11:02 70 95 11/19/16 10:57 69 95 11/19/16 10:52 73 95 11/19/16 10:48 74 109/56 92 11/19/16 10:47 77 96 11/19/16 10:45 96.8 F L 73 20 109/56 96 11/19/16 08:44 77 97 11/19/16 08:39 80 97 11/19/16 08:34 77 98 11/19/16 08:30 76 109/66 11/19/16 08:29 85 96 Intake and Output 11/19/16 11/20/16 11/20/16 22:59 06:59 14:59 Intake Total 480 Output Total 900 200 Balance -900 280 Intake: Intake, Free Water 480 Output: Urine 900 200 Indwelling Catheter 900 Void 200 Other: Total, Output Amount 400 200 Estimated Blood Loss 100 - Exam Breasts: Present: normal Lungs: Present: Normal air movement Abdomen: Present: normal appearance, soft. Absent: distention, tenderness Uterus: Present: normal, firm, fundal height below umbilicus. Absent: bogginess , tenderness Extremities: Present: normal
--- NOTE | 2016-11-20 07:54 | Discharge Summary ---
Providers - Providers Date of Admission: 11/18/16 17:48 Date of discharge: 11/21/16 Attending physician: VITALIY PHILLIPS MD Primary care physician: VITALIY PHILLIPS MD Hospitalization Reason for admission: induction of labor (oligo), IUP at term Laceration: 1st degree Other procedures: none complications: none Discharge diagnosis: IUP at term delivered [place] baby: female Condition at discharge: Good Disposition: DC-01 TO HOME OR SELFCARE Plan - Discharge Medications Prescriptions: Ibuprofen [Motrin 600 MG tab] 600 mg PO Q6HR PRN #30 tablet PRN Reason: Pain OXcarbazepine [Trileptal] 450 mg PO BID #60 tablet Pantoprazole [Protonix TAB] 40 mg PO BID #60 tablet - Provider Discharge Summary Activity: routine, no sex for 6 weeks, no heavy lifting 4 weeks, no strenuous exercise Diet: routine Instructions: routine Additional instructions: [] Smoking cessation referral if applicable(refer to patient education folder for contact #) [] Refer to [facility]'s [facility] Booklet Call your doctor immediately for: * Fever > 100.5 * Heavy vaginal bleeding ( >1 pad per hour) * Severe persistent headache * Shortness of breath * Reddened, hot, painful area to leg or breast * Drainage or odor from incision. * Keep incision clean and dry at all times and follow doctor's instructions regarding bathing/showering - Follow up plan Follow up: VITALIY PHILLIPS MD [Primary Care Provider] - LATASHA BARRIENTOS CNM [Advanced Practice Nurse] - (RTO 4 weeks )
[2016-11-20 08:16] LABS: Hematocrit 30.3 % (30.3-42.9); Hemoglobin 10.4 gm/dl (10.1-14.3)
[2016-11-20] MEDS: LANSINOH TP PRN ×2 (08:30→23:51)
[2016-11-20] MEDS: PRENATAL VITAMIN PO SCH (11:20)
[2016-11-20] MEDS: TRILEPTAL PO SCH ×2 (11:22→21:45)
[2016-11-20] MEDS ORDERED: DERMOPLAST TP PRN (12:08)
--- NOTE | 2016-11-20 15:43 | Progress Note ---
Subjective Date of service: 11/20/16 Interval history: 1st day after normal vaginal delivery Patient is in the bed, relatively comfortable. Pain is well controlled with pain meds. Ambulated well. No residual neurological deficit. No anesthesia complications Objective - Constitutional Vitals: Vital Signs - 12hr 11/20/16 11/20/16 11/20/16 05:20 07:48 12:01 Temperature 97.8 F 97.7 F 97.9 F Pulse Rate [ 62 62 83 Right From Monitor] Respiratory 16 18 20 Rate Blood Pressure 98/56 116/60 106/59 [Right Arm] - Labs CBC & Chem 7: 11/20/16 07:47
[2016-11-20] MEDS ORDERED: M-M-R II VACCINE SUB-Q ONE (17:59)
[2016-11-21] MEDS: MOTRIN PO SCH ×2 (05:25→12:00)
[2016-11-21] MEDS: PROTONIX PO SCH (10:28)
[2016-11-21] MEDS: PRENATAL VITAMIN PO SCH (10:28)
[2016-11-21] MEDS: TRILEPTAL PO SCH (10:50)
[2016-11-21 15:13] VITALS: BP 127/76
== END 2016-11-21 16:45 | disposition home or self-care (01) | DRG 774 ==
LOC: LD 17:48 → OB 11-19 20:07
PROVIDERS: ADMIT Obstetrics & Gynecology; ATTEND Obstetrics & Gynecology
PROC: 0HQ9XZZ Repair Perineum Skin, External Approach (ICD-10-PCS; principal; 2016-11-19)
PROC: 10E0XZZ Delivery of Products of Conception, External Approach (ICD-10-PCS; 2016-11-19)
PROC: 3E0234Z Introduction of Serum, Toxoid and Vaccine into Muscle, Percutaneous Approach (ICD-10-PCS; 2016-11-19)
PROC: 00HU33Z Insertion of Infusion Device into Spinal Canal, Percutaneous Approach (ICD-10-PCS; 2016-11-19)
PROC: 3E0R3CZ (ICD-10-PCS; 2016-11-19)
DX: O41.03X0 Oligohydramnios, third trimester, not applicable or unspecified (principal); O98.52 Other viral diseases complicating childbirth; O70.0 First degree perineal laceration during delivery; O76 Abnormality in fetal heart rate and rhythm complicating labor and delivery; O99.214 Obesity complicating childbirth; B00.9 Herpesviral infection, unspecified; O69.81X0 Labor and delivery complicated by cord around neck, without compression, not applicable or unspecified; O99.344 Other mental disorders complicating childbirth; F31.9 Bipolar disorder, unspecified; A59.9 Trichomoniasis, unspecified; O98.82 Other maternal infectious and parasitic diseases complicating childbirth; E66.01 Morbid (severe) obesity due to excess calories; Z68.41 Body mass index [BMI] 40.0-44.9, adult; Z3A.37 37 weeks gestation of pregnancy; Z37.0 Single live birth; Z88.8 Allergy status to other drugs, medicaments and biological substances
CPT/HCPCS: 36415; 59025; 76815; 76819; 82962; 85014; 85018; 85027; 86850; 86900; 86901; 90715; 99211; A6250; G0463; J0595; J2405; J2590; J3010; J7120

== ENCOUNTER 2018-06-06 20:10 | Emergency (ER) | payer MEDICAID ==
[2018-06-06 21:32] LABS: Bilirubin,Urine NEG (Negative); Blood,Urine NEG (Negative); Color,Urine Yellow (Yellow); Mucus,Urine FEW /HPF; Protein,Urine <15 mg/dL mg/dL (Negative); Urobilinogen,Urine < 2.0 mg/dL (<2.0)
[2018-06-06 21:42] LABS: HCG Qualitative,Urine Negative (Negative)
[2018-06-06 22:14] LABS: Basophils % (Auto) 0.3 % (0.0-1.8); Eosinophils # (Auto) 0.2 K/mm3 (0.0-0.4); Eosinophils % (Auto) 1.4 % (0.0-4.3); Hemoglobin 13.6 gm/dl (10.1-14.3); Lymphocytes # (Auto) 2.3 K/mm3 (1.2-5.4); Lymphocytes % (Auto) 21.2 % (13.4-35.0); Mean Corpuscular HGB Conc 35 % (30-34); Mean Corpuscular Volume 80 fl (79-97); Monocytes # (Auto) 0.5 K/mm3 (0.0-0.8); Monocytes % (Auto) 4.8 % (0.0-7.3); Platelet Count 232 K/mm3 (140-440); Red Blood Count 4.85 M/mm3 (3.65-5.03); Red Cell Distribution Width 13.2 % (13.2-15.2)
[2018-06-06 22:29] LABS: Alanine Aminotransferase 11 units/L (7-56); Albumin 4.2 g/dL (3.9-5); BUN/Creatinine Ratio 16; Blood Urea Nitrogen 8 mg/dL (7-17); Hemolysis Index 4
[2018-06-06] MEDS ORDERED: TORADOL IV ONE (22:38)
[2018-06-06] MEDS ORDERED: ZOFRAN IV ONE (22:38)
[2018-06-06] MEDS ORDERED: NACL 0.9% 1000 ML 1,000 ML IV ONE (22:38)
--- NOTE | 2018-06-06 22:44 | Emergency Department Report ---
ED Abdominal Pain HPI - General Chief Complaint: Abdominal Pain Stated Complaint: ABD PAIN VOMITTING Time Seen by Provider: 06/06/18 21:51 Source: patient Mode of arrival: Ambulatory Limitations: No Limitations - History of Present Illness Initial Comments: Patient is a 28-year-old white female with a history of gallstones and obesity no longer taking PPI patient presented for abdominal pain right upper quadrant with nausea vomiting for the past week last by mouth intake was yesterday And Vomiting 30 Minutes Ago pain described as aching and burning 5/10 pain is relieved by nothing pain is exacerbated by eating is been no fevers no chills last menses 2 weeks ago this is a recurrent problem for the last 2 years MD Complaint: abdominal pain Onset/Timin -: week(s) Location: RUQ Radiation: RUQ Migration to: RUQ Severity: moderate Severity scale (0 -10): 5 Quality: aching, sharp Consistency: constant Improves With: nothing Worsens With: eating Associated Symptoms: nausea, vomiting - Related Data LMP Date: 05/24/18 Previous Rx's Medication Instructions Recorded Last Taken Type Ibuprofen [Motrin 600 MG tab] 600 mg PO Q6HR PRN #30 tablet 11/20/16 Unknown Rx OXcarbazepine [Trileptal] 450 mg PO BID #60 tablet 11/20/16 Unknown Rx Pantoprazole [Protonix TAB] 40 mg PO BID #60 tablet 11/20/16 Unknown Rx Ciprofloxacin HCl [Cipro] 500 mg PO BID 10 Days #20 tablet 06/07/18 Unknown Rx Omeprazole 40 mg PO DAILY #30 capsule. 06/07/18 Unknown Rx Sucralfate [Carafate] 1 gm PO ACHS 7 Days #28 tablet 06/07/18 Unknown Rx metroNIDAZOLE [Flagyl] 500 mg PO BID 10 Days #20 tablet 06/07/18 Unknown Rx traMADol [Ultram] 50 mg PO Q6HR PRN #12 tablet 06/07/18 Unknown Rx Allergies Allergy/AdvReac Type Severity Reaction Status Date / Time terfenadine [From Seldane] Allergy Rash Verified 06/16/16 14:59 ED Review of Systems ROS: Stated complaint: ABD PAIN VOMITTING Other details as noted in HPI Constitutional: denies: chills, fever Eyes: denies: eye pain, eye discharge, vision change ENT: denies: ear pain, throat pain Respiratory: denies: cough, shortness of breath, wheezing Cardiovascular: denies: chest pain, palpitations Endocrine: no symptoms reported Gastrointestinal: abdominal pain, nausea, vomiting Genitourinary: denies: urgency, dysuria, frequency, hematuria, discharge, abnormal menses, dyspareunia Musculoskeletal: denies: back pain, joint swelling, arthralgia Skin: denies: rash, lesions Neurological: denies: headache, weakness, paresthesias Psychiatric: denies: anxiety, depression Hematological/Lymphatic: denies: easy bleeding, easy bruising ED Past Medical Hx - Past Medical History Hx Hypertension: No Hx Diabetes: No Hx Deep Vein Thrombosis: No Hx GERD: Yes Hx Renal Disease: No Hx Sickle Cell Disease: No Hx Headaches / Migraines: Yes (migraines) Hx Seizures: No Hx Asthma: Yes (no inhaler) Hx COPD: No Hx HIV: No - Social History Smoking Status: Never Smoker Substance Use Type: Alcohol - Medications Home Medications: Home Medications Medication Instructions Recorded Confirmed Last Taken Type Ibuprofen [Motrin 600 MG tab] 600 mg PO Q6HR PRN #30 tablet 11/20/16 Unknown Rx OXcarbazepine [Trileptal] 450 mg PO BID #60 tablet 11/20/16 Unknown Rx Pantoprazole [Protonix TAB] 40 mg PO BID #60 tablet 11/20/16 Unknown Rx Ciprofloxacin HCl [Cipro] 500 mg PO BID 10 Days #20 tablet 06/07/18 Unknown Rx Omeprazole 40 mg PO DAILY #30 capsule. 06/07/18 Unknown Rx Sucralfate [Carafate] 1 gm PO ACHS 7 Days #28 tablet 06/07/18 Unknown Rx metroNIDAZOLE [Flagyl] 500 mg PO BID 10 Days #20 tablet 06/07/18 Unknown Rx traMADol [Ultram] 50 mg PO Q6HR PRN #12 tablet 06/07/18 Unknown Rx ED Physical Exam - General Limitations: No Limitations General appearance: alert, in no apparent distress - Head Head exam: Present: atraumatic, normocephalic - Eye Eye exam: Present: normal appearance - ENT ENT exam: Present: normal orophraynx, mucous membranes moist, TM's normal bilaterally, normal external ear exam - Neck Neck exam: Present: normal inspection, full ROM. Absent: tenderness, meningismus, lymphadenopathy, thyromegaly - Respiratory Respiratory exam: Present: normal lung sounds bilaterally. Absent: respiratory distress, wheezes, chest wall tenderness - Cardiovascular Cardiovascular Exam: Present: regular rate, normal rhythm, normal heart sounds. Absent: systolic murmur, diastolic murmur, rubs, gallop - GI/Abdominal GI/Abdominal exam: Present: soft, tenderness (RUQ ), normal bowel sounds. Absent: guarding, rebound, rigid, bruit, hernia - Expanded GI/Abdominal Exam Expanded GI/Abdominal exam: Present: Yin's sign. Absent: psoas sign, obturator sign, heel tap sign, Rovsing's sign, tenderness at Mcbur[place]'s Point, ascites - Rectal Rectal exam: Present: deferred - Extremities Exam Extremities exam: Present: normal inspection - Back Exam Back exam: Present: normal inspection - Neurological Exam Neurological exam: Present: alert, oriented X3, CN II-XII intact, normal gait - Psychiatric Psychiatric exam: Present: normal affect, normal mood - Skin Skin exam: Present: warm, dry, intact, normal color. Absent: rash ED Course Vital Signs 06/06/18 20:15 Temperature 98.4 F Pulse Rate 124 H Respiratory 18 Rate Blood Pressure 131/79 O2 Sat by Pulse 98 Oximetry ED Medical Decision Making - Lab Data Result diagrams: 06/06/18 22:04 06/06/18 22:04 Labs 06/06/18 06/06/18 06/06/18 21:03 22:04 22:04 WBC 10.8 RBC 4.85 Hgb 13.6 Hct 39.0 MCV 80 MCH 28 MCHC 35 H RDW 13.2 Plt Count 232 Lymph % (Auto) 21.2 [place] % (Auto) 4.8 Eos % (Auto) 1.4 Baso % (Auto) 0.3 Lymph # 2.3 [place] # 0.5 Eos # 0.2 Baso # 0.0 Seg Neutrophils % 72.3 H Seg Neutrophils # 7.8 H Sodium 137 Potassium 3.6 Chloride 100.3 Carbon Dioxide 26 Anion Gap 14 BUN 8 Creatinine 0.5 L Estimated GFR > 60 BUN/Creatinine Ratio 16 Glucose 106 H Calcium 9.0 Total Bilirubin 0.40 AST 14 ALT 11 Alkaline Phosphatase 86 Total Protein 7.7 Albumin 4.2 Albumin/Globulin Ratio 1.2 Lipase 14 Urine Color Yellow Urine Turbidity Clear Urine pH 5.0 Ur Specific [place] 1.017 Urine Protein <15 mg/dl Urine Glucose (UA) Neg Urine Ketones Neg Urine Blood Neg Urine Nitrite Neg Urine Bilirubin Neg Urine Urobilinogen < 2.0 Ur Leukocyte Esterase Neg Urine WBC (Auto) 1.0 Urine RBC (Auto) 1.0 U Epithel Cells (Auto) 1.0 Urine Mucus Few Urine HCG, Qual Negative - Radiology Data Radiology results: report reviewed, image reviewed CT abd pelvis : distended no stones, minimal wall thickening, possible cholecysitis, bile ducts are normal - Medical Decision Making CT abd pelvis : distended no stones, minimal wall thickening, possible cholecysitis, bile ducts are normal , cbc, cmp, ua: normal, pain is improving, plan: zosyn, ivpb, NS x 1 liter, dc to home with Cipro and Flagyl, ultram prn pain, omeprazole, carafate x 1 week follow up with GI in 2 days return to ed if symptoms worsen, pt verbalized agreement and understanding of same, pt is cu rrently a/o x 3 tolerating po intake without n/v pain is 1/10 at this time, pt verbalized agreement and understanding of same. Critical care attestation.: If time is entered above; I have spent that time in minutes in the direct care of this critically ill patient, excluding procedure time. ED Disposition Clinical Impression: Cholecystitis without calculus Abdominal pain Qualifiers: Abdominal location: right upper quadrant Qualified Code(s): R10.11 - Right upper quadrant pain Disposition: DC-01 TO HOME OR SELFCARE Is pt being admited?: No Does the pt Need Aspirin: No Condition: Stable Instructions: Abdominal Pain (ED), Cholecystitis (ED) Prescriptions: Ciprofloxacin HCl [Cipro] 500 mg PO BID 10 Days #20 tablet metroNIDAZOLE [Flagyl] 500 mg PO BID 10 Days #20 tablet Omeprazole 40 mg PO DAILY #30 capsule. Sucralfate [Carafate] 1 gm PO ACHS 7 Days #28 tablet traMADol [Ultram] 50 mg PO Q6HR PRN #12 tablet PRN Reason: Pain Referrals: TIMUR HULL MD [Staff Physician] - 3-5 Days [facility] [Outside] - 3-5 Days Forms: Work/School Release Form(ED) Time of Disposition: 02:52
[2018-06-06] MEDS ORDERED: ATIVAN IV ONE (23:39)
--- NOTE | 2018-06-07 01:00 | Cat Scan Report ---
FINAL REPORT PROCEDURE: CT ABDOMEN PELVIS W CON TECHNIQUE: Computerized axial tomography of the abdomen and pelvis was performed after the IV inject ion of iodinated nonionic contrast. HISTORY: abd pain COMPARISON: No prior studies are available for comparison. FINDINGS: Visualized lower thorax: No significant abnormality. Liver: Normal size and attenuation. Spleen: Normal size and attenuation. Gallbladder and biliary system: Gallbladder is distended. No stones are seen but there is wall thicke sonam and pericholecystic fluid suggesting cholecystitis. The bile ducts are normal in caliber.. Pancreas: Normal. Adrenals: Normal. Kidneys: Normal. GI tract: There is no bowel obstruction, colitis or enteritis. The appendix is normal.. Lymph nodes and mesentery: Normal. Vasculature: Normal. Bladder: Normal. Reproductive organs: Uterus is unremarkable. There is a 2.5 centimeters cyst in the left ovary.. Peritoneum: There is no ascites or free air, abscess or adenopathy.. Musculoskeletal structures: No significant abnormality. Other: None. IMPRESSION: Gallbladder is distended. No stones are seen but there is wall thickening and pericholecystic fluid s uggesting cholecystitis. The bile ducts are normal in caliber.. There is no bowel obstruction, colitis or enteritis. The appendix is normal.. Uterus is unremarkable. There is a 2.5 centimeters cyst in the left ovary.. There is no ascites or free air, abscess or adenopathy..
[2018-06-07] MEDS ORDERED: ZOSYN/NS 4.5GM/100ML 4.5 GM/100 ML VIAL IV ONE (01:25)
[2018-06-07] MEDS ORDERED: NACL 0.9% 500 ML 500 ML IV ONE (01:25)
[2018-06-07] MEDS ORDERED: MORPHINE IV ONE (01:25)
[2018-06-07] MEDS ORDERED: ZOFRAN IV ONE (01:25)
[2018-06-07 03:13] VITALS: BP 109/67
== END 2018-06-07 03:22 | disposition home or self-care (01) ==
LOC: ED 20:10
DX: K81.9 Cholecystitis, unspecified (principal); K21.9 Gastro-esophageal reflux disease without esophagitis; G43.909 Migraine, unspecified, not intractable, without status migrainosus; J45.909 Unspecified asthma, uncomplicated; Z79.899 Other long term (current) drug therapy; Z88.6 Allergy status to analgesic agent
CPT/HCPCS: 36415; 74177; 80053; 81001; 81025; 83690; 85025; 96361; 96365; 96375; 96376; 99284; J1885; J2060; J2270; J2405; J2543; J7030; J7040; Q9967

== ENCOUNTER 2018-06-26 20:59 | Inpatient (IN) | payer MEDICAID ==
[2018-06-26] MEDS ORDERED: ASPIRIN PO ONE (21:10)
[2018-06-26 21:46] LABS: Basophils % (Auto) 0.4 % (0.0-1.8); Eosinophils # (Auto) 0.1 K/mm3 (0.0-0.4); Eosinophils % (Auto) 1.6 % (0.0-4.3); Lymphocytes # (Auto) 2.1 K/mm3 (1.2-5.4); Lymphocytes % (Auto) 34.4 % (13.4-35.0); Mean Corpuscular HGB Conc 28 % (30-34); Mean Corpuscular Volume 79 fl (79-97); Monocytes # (Auto) 0.3 K/mm3 (0.0-0.8); Monocytes % (Auto) 4.8 % (0.0-7.3); Platelet Count 222 K/mm3 (140-440); Red Blood Count 4.61 M/mm3 (3.65-5.03)
[2018-06-26 21:50] LABS: Hematocrit 36.6 % (30.3-42.9); Hemoglobin 10.2 gm/dl (10.1-14.3)
[2018-06-26 21:57] LABS: BUN/Creatinine Ratio 22; Blood Urea Nitrogen 11 mg/dL (7-17); Calcium 9.2 mg/dL (8.4-10.2); Hemolysis Index 5
--- NOTE | 2018-06-26 22:45 | Emergency Department Report ---
Blank Doc - Documentation Documentation: This is a 28-year-old female here report that she came to the ER with chest pa in. She says she has some shortness of breath but chest pain is probably related to gallbladder. She says she had a gallbladder infection and she was seen by Dr. Merritt and Dr. Merritt told her to come to the emergency room if she has any chest pain. She denies any urinary burning frequency or urgency. She states that she is supposed to have surgery on . She says she had fever. Last menstrual period was 06/25/2018. She is not having any gallbladder pain at present. Assessment/plan Vital signs are stable except she is mildly tachycardiac. Afebrile CV: Tachycardic at 102. Abdomen: Mild tenderness to right upper quadrant with normal bowel sounds This initial assessment diagnostic orders/clinical plan/treatment(s) is/are subject to change based on patient's health status, clinical progression and re- assessment by fellow clinical providers in the ED. Further treatment and workup at subsequent clinical providers discretion. Patient/guardians urged not to elope from ED s their condition may be serious if not clinically assessed and managed. Initial orders include: 1-labs, urinalysis, EKG 2 main ED for evaluation by Colby
[2018-06-26 23:19] LABS: Bilirubin,Urine NEG (Negative); Blood,Urine NEG (Negative); Color,Urine Yellow (Yellow); Mucus,Urine FEW /HPF; Protein,Urine <15 mg/dL mg/dL (Negative); Urobilinogen,Urine < 2.0 mg/dL (<2.0)
[2018-06-26 23:21] LABS: HCG Qualitative,Urine Negative (Negative)
[2018-06-27] MEDS ORDERED: ZOFRAN IV ONE (00:19)
[2018-06-27] MEDS ORDERED: MORPHINE IV ONE (00:19)
[2018-06-27] MEDS ORDERED: NACL 0.9% 1000 ML 1,000 ML IV ONE (00:20)
--- NOTE | 2018-06-27 00:30 | Emergency Department Report ---
ED Chest Pain HPI - General Chief Complaint: Chest Pain Stated Complaint: NAUSEA, VOMITING Time Seen by Provider: 06/26/18 22:11 Source: patient Mode of arrival: Ambulatory Limitations: No Limitations - History of Present Illness MD Complaint: chest pain -: week(s) (2 weeks) Onset: during rest Pain Location: epigastric Pain Radiation: abdomen Severity: moderate Severity scale (0 -10): 5 Quality: sharp Consistency: constant Improves With: nothing Worsens With: nothing re: nausea, dyspnea. denies: vomting Treatments Prior to Arrival: none Aspirin use within the Past 7 Days: (0) No - Related Data On Oral Contraceptives: No Home Medications Medication Instructions Recorded Confirmed Last Taken OXcarbazepine [Trileptal] 300 mg PO BID 06/25/18 06/27/18 Unknown Allergies Allergy/AdvReac Type Severity Reaction Status Date / Time terfenadine [From Seldane] Allergy Rash Verified 06/25/18 16:23 Heart Score - HEART Score History: Slightly suspicious EKG: Normal Age: < 45 Risk factors: 1-2 risk factors Troponin: < normal limit HEART Score: 1 - Critical Actions Critical Actions: 0-3 pts:0.9-1.7%risk of adverse cardiac event.Candidate for discharge ED Review of Systems ROS: Stated complaint: NAUSEA, VOMITING Other details as noted in HPI Comment: All other systems reviewed and negative Constitutional: denies: chills, fever Eyes: denies: eye pain, eye discharge, vision change ENT: denies: ear pain, throat pain Respiratory: denies: cough, shortness of breath, wheezing Cardiovascular: chest pain. denies: palpitations Endocrine: no symptoms reported Gastrointestinal: abdominal pain, nausea. 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) Hx COPD: No Hx HIV: No - Surgical History Past Surgical History?: No - Social History Smoking Status: Never Smoker Substance Use Type: None - Medications Home Medications: Home Medications Medication Instructions Recorded Confirmed Last Taken Type OXcarbazepine [Trileptal] 300 mg PO BID 06/25/18 06/27/18 Unknown History ED Physical Exam - General Limitations: No Limitations General appearance: alert, in no apparent distress, obese - Head Head exam: Present: atraumatic, normocephalic - Eye Eye exam: Present: normal appearance, PERRL, EOMI Pupils: Present: normal accommodation - ENT ENT exam: Present: normal exam, normal orophraynx, mucous membranes moist - Neck Neck exam: Present: normal inspection, full ROM. Absent: tenderness - Respiratory Respiratory exam: Present: normal lung sounds bilaterally. Absent: respiratory distress, wheezes, rales, rhonchi - Cardiovascular Cardiovascular Exam: Present: regular rate, normal rhythm, normal heart sounds. Absent: systolic murmur, diastolic murmur, rubs, gallop - GI/Abdominal GI/Abdominal exam: Present: soft, tenderness (RUQ), guarding, normal bowel sounds. Absent: distended, rebound, rigid - Extremities Exam Extremities exam: Present: normal inspection, full ROM, normal capillary refill. Absent: tenderness - Back Exam Back exam: Present: normal inspection, full ROM. Absent: tenderness, CVA tenderness (R), CVA tenderness (L) - Neurological Exam Neurological exam: Present: alert, oriented X3, CN II-XII intact - Psychiatric Psychiatric exam: Present: normal affect, normal mood - Skin Skin exam: Present: warm, dry, intact, normal color. Absent: rash ED Course Vital Signs 06/26/18 06/26/18 06/27/18 21:07 23:58 00:00 Temperature 97.3 F L 97.5 F L Pulse Rate 102 H 133 H 90 Respiratory 16 14 15 Rate Blood Pressure 155/92 121/89 Blood Pressure 126/81 [Right] O2 Sat by Pulse 99 100 98 Oximetry 06/27/18 06/27/18 06/27/18 00:55 01:01 01:21 Temperature Pulse Rate 91 H 93 H Respiratory 15 21 15 Rate Blood Pressure 128/67 121/89 Blood Pressure [Right] O2 Sat by Pulse 95 97 Oximetry 06/27/18 06/27/1819 01:31 02:10 02:12 Temperature 98.3 F Pulse Rate 86 89 91 H Respiratory 15 16 Rate Blood Pressure 121/89 123/67 Blood Pressure [Right] O2 Sat by Pulse 98 97 Oximetry - Consultations Consultation #1: 06/27/18 00:38 I consulted the general surgeon on-call Dr Dominique. He recommended admitting patient to the hospitalist and surgery will consult on her for possible cholecystectomy. Consultation #2: 06/27/18 00:44 Dr Olmstead to admit patient for further evaluation and management. ANTONIO score - Antonio Score Age > 65: (0) No Aspirin use within the Past 7 Days: (0) No 3 or more CAD Risk Factors: (0) No 2 or more Angina events in past 24 hrs: (0) No Known CAD with more than 50% Stenosis: (0) No Elevated Cardiac Markers: (0) No ST Deviation Greater than 0.5mm: (0) No ANTONIO Score: 0 ED Medical Decision Making - Lab Data Result diagrams: 06/26/18 21:32 06/26/18 21:32 Lab Results 06/26/18 06/26/18 06/26/18 Range/Units 21:32 21:32 22:22 WBC 6.1 (4.5-11.0) K/mm3 RBC 4.61 (3.65-5.03) M/mm3 Hgb 10.2 (10.1-14.3) gm/dl Hct 36.6 (30.3-42.9) % MCV 79 (79-97) fl MCH 22 L (28-32) pg MCHC 28 L (30-34) % RDW 13.0 L (13.2-15.2) % Plt Count 222 (140-440) K/mm3 Lymph % (Auto) 34.4 (13.4-35.0) % [place] % (Auto) 4.8 (0.0-7.3) % Eos % (Auto) 1.6 (0.0-4.3) % Baso % (Auto) 0.4 (0.0-1.8) % Lymph # 2.1 (1.2-5.4) K/mm3 [place] # 0.3 (0.0-0.8) K/mm3 Eos # 0.1 (0.0-0.4) K/mm3 Baso # 0.0 (0.0-0.1) K/mm3 Seg Neutrophils % 58.8 (40.0-70.0) % Seg Neutrophils # 3.6 (1.8-7.7) K/mm3 Sodium 141 (137-145) mmol/L Potassium 4.2 (3.6-5.0) mmol/L Chloride 102.2 (98-107) mmol/L Carbon Dioxide 28 (22-30) mmol/L Anion Gap 15 mmol/L BUN 11 (7-17) mg/dL Creatinine 0.5 L (0.7-1.2) mg/dL Estimated GFR > 60 ml/min BUN/Creatinine Ratio 22 % Glucose 111 H (65-100) mg/dL Calcium 9.2 (8.4-10.2) mg/dL Troponin T < 0.010 (0.00-0.029) ng/mL Urine Color Yellow (Yellow) Urine Turbidity Clear (Clear) Urine pH 5.0 (5.0-7.0) Ur Specific [place] 1.025 (1.003-1.030) Urine Protein <15 mg/dl (Negative) mg/dL Urine Glucose (UA) Neg (Negative) mg/dL Urine Ketones Neg (Negative) mg/dL Urine Blood Neg (Negative) Urine Nitrite Neg (Negative) Urine Bilirubin Neg (Negative) Urine Urobilinogen < 2.0 (<2.0) mg/dL Ur Leukocyte Esterase Tr (Negative) Urine WBC (Auto) 1.0 (0.0-6.0) /HPF Urine RBC (Auto) 1.0 (0.0-6.0) /HPF U Epithel Cells (Auto) 4.0 (0-13.0) /HPF Urine Mucus Few /HPF Urine HCG, Qual Negative (Negative) - EKG Data -: EKG Interpreted by Me EKG shows normal: sinus rhythm Rate: normal (86) - EKG Data When compared to previous EKG there are: previous EKG unavailable Interpretation: normal EKG 06/27/18 00:29 No STEMI - Radiology Data Radiology results: report reviewed, image reviewed - Medical Decision Making Chest Pain. RUQ abdominal Pain. Critical care attestation.: If time is entered above; I have spent that time in minutes in the direct care of this critically ill patient, excluding procedure time. ED Disposition Clinical Impression: Chest pain Qualifiers: Chest pain type: unspecified Qualified Code(s): R07.9 - Chest pain, unspecified Abdominal pain Qualifiers: Abdominal location: right upper quadrant Qualified Code(s): R10.11 - Right upper quadrant pain Disposition: OP ADMIT IP TO THIS HOSP Is pt being admited?: Yes Does the pt Need Aspirin: No Condition: Stable Time of Disposition: 00:39
[2018-06-27 00:51] LABS: INR 0.98 (0.87-1.13)
[2018-06-27 00:52] LABS: Partial Thromboplastin Time 20.7 Sec. (24.2-36.6)
[2018-06-27 01:14] LABS: Alanine Aminotransferase 13 units/L (7-56); Albumin 4.1 g/dL (3.9-5)
[2018-06-27 01:16] LABS: Bilirubin,Direct < 0.2 mg/dL (0-0.2)
[2018-06-27] MEDS ORDERED: DILAUDID IV PRN (02:24)
[2018-06-27] MEDS ORDERED: ZOFRAN IV PRN (02:25)
[2018-06-27] MEDS ORDERED: ATIVAN IV ONE (02:30)
[2018-06-27] MEDS ORDERED: NITROSTAT SL PRN (02:40)
[2018-06-27] MEDS ORDERED: ASPIRIN PO ONE (02:40)
[2018-06-27] MEDS ORDERED: TYLENOL PR PRN (02:42)
[2018-06-27] MEDS: NACL 0.9% 1000 ML 1,000 ML IV SCH ×3 (02:54→17:31)
[2018-06-27] MEDS: TRILEPTAL PO SCH ×4 (03:26→21:25)
[2018-06-27 07:42] LABS: Creatine Kinase MB < 1.0 ng/mL (0.0-4.0)
[2018-06-27] MEDS: NITRO-BID 2% TP SCH ×3 (10:13→17:29)
[2018-06-27] MEDS ORDERED: MORPHINE IV PRN (12:29)
--- NOTE | 2018-06-27 12:31 | Consultation ---
History of Present Illness Consult date: 06/27/18 Reason for consult: abdominal pain Requesting physician: BEATRIZ HAYNES Chief complaint: abdominal pain and nausea - History of present illness History of present illness: 28 yo F who is well known to my partner presented to ED last night due to c/o abdominal pain, nausea, chest pain, and chills. She is currently scheduled for cholecystectomy on . Dr. Merritt's last note - 28 yo morbidly obese female presents to the office with c/o intermittent RUQ pain for the last 1-2 years. Patient states that she was aware that she had gallstones and was told while that her gallbladder would have to be removed after delivery. She c/o RUQ radiating to the chest wh ich leads to shortness or breath and anxiety. This has been happening more frequently over the last month. It has limited her activities of daily living and is affecting her at work. She often has bilious emesis whenever the she has this pain. She has changed her diet without relief. She has seen [facility] who advised her to see a surgeon. Her PCP is Dr. Scott. Patient reports that her symptoms persist. The medicines given to her in the emergency department have helped a little bit. She would like something to eat or drink. Past History Past Medical History: other (Bipolar, anxiety, asthma, back pain, depression, ADHD) Past Surgical History: No surgical history Social history: smoking. denies: alcohol abuse, prescription drug abuse, IV drug use Family history: no significant family history Medications and Allergies Allergies Allergy/AdvReac Type Severity Reaction Status Date / Time terfenadine [From Seldane] Allergy Rash Verified 06/25/18 16:23 Home Medications Medication Instructions Recorded Confirmed Last Taken Type OXcarbazepine [Trileptal] 300 mg PO BID 06/25/18 06/27/18 Unknown History Active Meds: Active Medications Acetaminophen (Tylenol) 650 mg VA Q4H PRN PRN Reason: Fever >101 Sodium Chloride (Nacl 0.9% 1000 Ml) 1,000 mls @ 125 mls/hr IV DIRECT MARLENE Last Admin: 06/27/18 10:23 Dose: 125 mls/hr Documented by: Nitroglycerin (Nitrostat) 0.4 mg SL .Q5MIN PRN PRN Reason: Chest Pain Nitroglycerin (Nitro-Bid 2%) 0.5 inch TP QIDNTG [facility]; Protocol Last Admin: 06/27/18 10:13 Dose: 0.5 inch Documented by: Oxcarbazepine (Trileptal) 300 mg PO BID [facility] Last Admin: 06/27/18 10:13 Dose: Not Given Documented by: Review of Systems - Constitutional chills, chronic pain, no fever - Cardiovascular chest pain, no rapid/irregular heart beat, no shortness of breath - Respiratory no cough - Gastrointestinal abdominal pain, nausea, no vomiting - Genitourinary Genitourinary: no dysuria - Muskuloskeletal low back pain - Integumentary no rash, no pruritis, no redness, no wounds Exam Vital Signs Temp Pulse Resp BP Pulse Ox 97.3 F L 102 H 16 155/92 99 06/26/18 21:07 06/26/18 21:07 06/26/18 21:07 06/26/18 21:07 06/26/18 21:07 - General physical appearance Positive: no distress, no pain, obese (morbidly) - Eyes Positive: normal occular movement. Negative: icteric - Respiratory Positive: normal expansion, normal respiratory effort - Cardiovascular Rhythm: regular - Abdomen Abdomen: Present: soft, tender (in both lateral aspects of the abdomen. Also RUQ. ), bowel sounds normal. Absent: masses, guarding, rigid, wound - Integumentary no rash, no growths, no abnormal pigmentation - Neurologic Neurologic: alert and oriented to time, place and person - Psychiatric Psychiatric: appropriate mood/affect, cooperative Results - Labs 06/26/18 21:32 06/26/18 21:32 Abnormal lab results 06/26/18 06/26/18 06/27/18 Range/Units 21:32 21:32 00:02 MCH 22 L (28-32) pg MCHC 28 L (30-34) % RDW 13.0 L (13.2-15.2) % APTT 20.7 L (24.2-36.6) Sec. Creatinine 0.5 L (0.7-1.2) mg/dL Glucose 111 H (65-100) mg/dL Diabetes panel 06/26/18 06/27/18 Range/Units 21:32 00:33 Sodium 141 (137-145) mmol/L Potassium 4.2 (3.6-5.0) mmol/L Chloride 102.2 (98-107) mmol/L Carbon Dioxide 28 (22-30) mmol/L BUN 11 (7-17) mg/dL Creatinine 0.5 L (0.7-1.2) mg/dL Glucose 111 H (65-100) mg/dL Calcium 9.2 (8.4-10.2) mg/dL AST 13 (5-40) units/L ALT 13 (7-56) units/L Alkaline Phosphatase 92 (35-129) units/L Total Protein 7.2 (6.3-8.2) g/dL Albumin 4.1 (3.9-5) g/dL Calcium panel 06/26/18 06/27/18 Range/Units 21:32 00:33 Calcium 9.2 (8.4-10.2) mg/dL Albumin 4.1 (3.9-5) g/dL Pituitary panel 06/26/18 Range/Units 21:32 Sodium 141 (137-145) mmol/L Potassium 4.2 (3.6-5.0) mmol/L Chloride 102.2 (98-107) mmol/L Carbon Dioxide 28 (22-30) mmol/L BUN 11 (7-17) mg/dL Creatinine 0.5 L (0.7-1.2) mg/dL Glucose 111 H (65-100) mg/dL Calcium 9.2 (8.4-10.2) mg/dL Adrenal panel 06/26/18 06/27/18 Range/Units 21:32 00:33 Sodium 141 (137-145) mmol/L Potassium 4.2 (3.6-5.0) mmol/L Chloride 102.2 (98-107) mmol/L Carbon Dioxide 28 (22-30) mmol/L BUN 11 (7-17) mg/dL Creatinine 0.5 L (0.7-1.2) mg/dL Glucose 111 H (65-100) mg/dL Calcium 9.2 (8.4-10.2) mg/dL Total Bilirubin 0.30 (0.1-1.2) mg/dL AST 13 (5-40) units/L ALT 13 (7-56) units/L Alkaline Phosphatase 92 (35-129) units/L Total Protein 7.2 (6.3-8.2) g/dL Albumin 4.1 (3.9-5) g/dL Assessment and Plan - Patient Problems (1) Abdominal pain Current Visit: Yes Status: Acute Qualifiers: Abdominal location: right upper quadrant Qualified Code(s): R10.11 - Right upper quadrant pain Plan to address problem: Pt stable. Patient has chronic, intermittent symptoms. There are no new issues at this time. There are no signs of any infection or complication related to the gallbladder. Per Dr. Merritt's last note, I will start her on a clear liquid diet and not advance her until surgery. I will put her back on PRN morphine she reports that helps her more. I will also schedule her Zofran to help with her nausea. I think it is most likely the case that she will keep intermittently coming back to the emergency room until this gallbladder issue is addressed. She is tentatively scheduled for this . I will speak with Dr. Merritt tomorrow and see how she wants to proceed. Please call with questions. Time=30min
--- NOTE | 2018-06-27 12:43 | Event Note ---
Date: 06/27/18 Patient is 28 yo with acute cholecystitis. I have seen and examined her. Surgeon to evaluate, and determine timing of surgery.
[2018-06-27] MEDS ORDERED: ULTRAM PO PRN (13:23)
[2018-06-27] MEDS: TORADOL IV SCH ×2 (13:31→17:29)
[2018-06-27] MEDS: ZOFRAN IV SCH ×2 (13:42→18:38)
[2018-06-27 14:41] LABS: Creatine Kinase MB < 1.0 ng/mL (0.0-4.0)
--- NOTE | 2018-06-27 18:39 | History and Physical Report ---
CHIEF COMPLAINT: Chest pain. Other complaint include a right upper quadrant pain, nausea and vomiting. HISTORY OF PRESENT ILLNESS: The patient is a 28-year-old female who was diagnosed with cholecystitis, not too long ago and was scheduled for surgery on 07/01/2018 but started having increasing right upper quadrant abdominal pain and retrosternal chest pain associated with nausea and vomiting and the patient presented for evaluation, saying that she cannot wait with this kind of pain for appointment on 07/01/2018. There is no history of fever or chills and no history of diarrhea. PAST MEDICAL HISTORY: Pertinent for gastroesophageal reflux disease, migraine headache, cholecystitis, asthma. PAST SURGICAL HISTORY: Unremarkable. FAMILY HISTORY: Family history is noncontributory. SOCIAL HISTORY: The patient smokes cigarette occasionally, does not use illicit drug, and does not drink alcohol. MEDICATIONS: The patient is on oxcarbazepine or Trileptal 300 mg by mouth twice daily. Also, the patient is on Ultram 15 mg by mouth every 6 hours as needed for pain. ALLERGIES: THE PATIENT IS ALLERGIC TO TERFENADINE. REVIEW OF SYSTEMS: CONSTITUTIONAL: There is no fever, no chills, no diaphoresis. HEENT: There is no headache or sore throat. CARDIOVASCULAR SYSTEM: Chest pain is present. No orthopnea. RESPIRATORY SYSTEM: There is no shortness of breath or cough. GASTROINTESTINAL SYSTEM: Abdominal pain is present. Nausea is present, but no vomiting, no diarrhea. NEUROLOGICAL SYSTEM: There is no numbness, no dizziness, no altered mental status. MUSCULOSKELETAL SYSTEM: There is no joint pain or swelling. DERMATOLOGICAL SYSTEM: There is no skin rash or itching. GENITOURINARY SYSTEM: There is no dysuria, hematuria, or flank pain. Rest of system review is normal. PHYSICAL EXAMINATION: GENERAL: At the time of exam, the patient was found to be alert, oriented x 3 and not in acute distress. VITAL SIGNS: At the initial time of presentation show temperature of 97.3 degrees Fahrenheit, pulse of 102, respirations 16, blood pressure 155/92, O2 sat of 99% on room air. HEENT: Shows pupils to be equal, round, reactive to light and accommodating. Extraocular movements are intact. NECK: Neck is supple with no JVD or carotid bruit. CARDIOVASCULAR SYSTEM: Shows normal first and second heart sounds with no gallops or murmurs. RESPIRATORY SYSTEM: Shows good air entry on both sides of the lungs with no abnormal breath sounds. GASTROINTESTINAL SYSTEM: Shows abdomen to be full, soft with tenderness in the right upper quadrant area. There is no rigidity and no organomegaly elicited. Bowel sound is normal. NEUROLOGICAL SYSTEM: Shows no focal deficit. MUSCULOSKELETAL SYSTEM: Shows no joint swelling or tenderness. DERMATOLOGICAL SYSTEM: Shows no skin rash. GENITOURINARY SYSTEM: Showing no costovertebral angle tenderness. PERTINENT LABORATORY AND IMAGING STUDIES: The patient had chest x-ray done with no reporting of any acute cardiopulmonary lesion. The patient lab result shows CBC with normal white count, normal hemoglobin, and normal hematocrit with unremarkable CBC differential. Coagulation studies came back unremarkable. The patient's chemistry was also unremarkable. Liver transaminases came back normal. The patient's urinalysis was unremarkable. Imaging studies, no imaging studies were done at this time. DIAGNOSES: 1. Cholecystitis. 2. Atypical chest pain. PLAN OF ACTION: 1. The patient will be admitted to medical colon on remote telemetry. 2. The patient will have cardiac enzymes involving troponin, total CK, and CK-MB checked serially x 2 more levels. 3. The patient will continue on general surgical consult with Dr. Dominique requested by the Emergency Room physician for treatment of cholecystitis that is known to Dr. Dominique because of appointment on 07/01/2018 for cholecystectomy. 4. The patient will be n.p.o. until seen by the surgeon. 5. The patient will be on Tylenol 650 mg rectally every 4 hours for fever and headache and will be on aspirin 325 mg by mouth daily. 6. The patient will be on IV Dilaudid 0.5 mg every 3 hours as needed for pain and IV Zofran 4 mg every 8 hours as needed for nausea and vomiting. 7. The patient will be on nitro paste half-inch to anterior chest wall q.i.d. and also will be on sublingual nitroglycerin 0.4 mg every 5 minutes for breakthrough chest pain. 8. The patient will be on IV normal saline at 125 mL an hour. 9. The patient will be on home medication oxcarbazepine as shown in the medication reconciliation section. 10. The patient will be on oxygenation treatment and will be on oxygen by nasal cannula at 2 liters per minute. JOB# [id number] [facility]JOAQUIN BURTON
[2018-06-27] MEDS: HEPARIN SUB-Q SCH (21:26)
[2018-06-28] MEDS: NACL 0.9% 1000 ML 1,000 ML IV SCH ×2 (00:36→06:09)
[2018-06-28] MEDS: ZOFRAN IV SCH ×3 (00:37→14:36)
[2018-06-28] MEDS: TORADOL IV SCH ×3 (00:37→14:36)
[2018-06-28] MEDS ORDERED: BENADRYL IV PRN (00:56)
[2018-06-28] MEDS: NITRO-BID 2% TP SCH ×3 (06:55→14:34)
[2018-06-28 07:34] LABS: BUN/Creatinine Ratio 18; Blood Urea Nitrogen 7 mg/dL (7-17); Calcium 8.6 mg/dL (8.4-10.2); Hemolysis Index 5
[2018-06-28 07:47] LABS: Hemoglobin 11.4 gm/dl (10.1-14.3); Mean Corpuscular HGB Conc 34 % (30-34); Mean Corpuscular Volume 81 fl (79-97); Platelet Count 176 K/mm3 (140-440)
[2018-06-28 08:54] VITALS: BP 116/74
[2018-06-28] MEDS: TRILEPTAL PO SCH (09:22)
[2018-06-28] MEDS ORDERED: D5/0.45NS 1,000 ML IV SCH (11:00)
--- NOTE | 2018-06-28 12:45 | Discharge Summary ---
Providers - Providers Date of Admission: 06/27/18 00:45 Date of discharge: 06/28/18 Attending physician: MENG MORSE 06/27/18 00:43 Consult to Physician [CONS] Routine Comment: Dr. Celestin spoke with Dr. Dominique @ 0036 Consulting Provider: ELYSE DOMINIQUE Physician Instructions: Reason For Exam: RUQ abdominal pain Primary care physician: [employer] Hospitalization Condition: Fair Hospital course: Patient is 37o yo with recently diagnosed cholecystitis. She was scheduled for surgery 06/2118.She however presented to ED on 06/27/17 because of increasing right upper quadrant abdominal pain, nausea and vomiting. She was evaluated in ED, put on narcotics, and admitted. patient was seen by Dr. Merritt surgeon. By following day she was feeling better , wanted to go home and do surgery as outpatient as was previous plan. She was subsequently discharged home to do cholecystectomy on 07/01/18 Disposition: DC-01 TO HOME OR SELFCARE - Discharge Diagnoses (1) Cholecystitis Status: Acute (2) Morbid obesity with BMI of 45.0-49.9, adult Status: Acute (3) Abdominal pain Status: Acute Qualifiers: Abdominal location: right upper quadrant Qualified Code(s): R10.11 - Right upper quadrant pain Core Measure Documentation - Palliative Care Palliative Care/ Comfort Measures: Not Applicable - Core Measures Any of the following diagnoses?: none Exam - Constitutional Vitals: Temp Pulse Resp BP Pulse Ox 98.4 F 70 18 116/74 100 06/28/18 08:54 06/28/18 09:22 06/28/18 08:53 06/28/18 09:22 06/28/18 12:32 Plan Activity: advance as tolerated Diet: low fat, low cholesterol, low salt Additional Instructions: 1.Follow up with PCP in 1 week,. 2.Return to Dr. Merritt for surgery 07/01/18 as scheduled earlier. 3.Please excuse from work from 06/28/18 to 07/01/18. Patient is scheduled for surgery on 07/01/18. Final return to work as per Surgeon Follow up with: PRIMARY CARE, [Referring] - 3-5 Days Prescriptions: traMADol [Ultram 50 MG tab] 50 mg PO Q6H PRN #12 tablet PRN Reason: Pain, Moderate (4-6)
--- NOTE | 2018-06-28 12:53 | Progress Note ---
Assessment and Plan 28 yo F with symptomatic cholelithaisis Plan; The patient is eager to go home and is requesting discharge because she is feeling better. I was able to move the surgery date up to tomorrow at 7:30am but the patient does not want to stay in the hospital. Therefore, I am leaving surgery scheduled as planned for 07/01. The patient is aware and agreeable. I did mention to her that we are concerned her symptoms may recur and she may end up coming back to the ER. She understands. I advised her to remain on a clear liquid diet until surgery. Ok to dc from surgery standpoint. D/W Dr. Sheikh. Subjective Date of service: 06/28/18 Narrative: Pt seen and examined. States she feels better. No abdominal pain. Tolerating clear liquids without n/v. No CP. She is eager to go home to see her daughter. Objective Vital Signs - 12hr 06/28/18 06/28/18 06/28/18 04:38 08:53 08:54 Temperature 97.6 F 98.4 F Pulse Rate 69 70 Respiratory 16 18 Rate Blood Pressure 94/39 116/74 O2 Sat by Pulse 99 97 Oximetry 06/28/18 06/28/18 09:22 12:32 Temperature Pulse Rate 70 Respiratory Rate Blood Pressure 116/74 O2 Sat by Pulse 100 Oximetry - General physical appearance Narrative Exam: Gen: AAOx3. NAD CV: S1, S2+ Resp: even and unlabored Abd: soft, obese, NT, ND Ext: no c/c/e - Labs 06/28/18 06:49 06/28/18 06:49 Diabetes panel 06/28/18 Range/Units 06:49 Sodium 141 (137-145) mmol/L Potassium 4.2 (3.6-5.0) mmol/L Chloride 106.5 (98-107) mmol/L Carbon Dioxide 23 (22-30) mmol/L BUN 7 (7-17) mg/dL Creatinine 0.4 L (0.7-1.2) mg/dL Glucose 97 (65-100) mg/dL Calcium 8.6 (8.4-10.2) mg/dL Calcium panel 06/28/18 Range/Units 06:49 Calcium 8.6 (8.4-10.2) mg/dL Pituitary panel 06/28/18 Range/Units 06:49 Sodium 141 (137-145) mmol/L Potassium 4.2 (3.6-5.0) mmol/L Chloride 106.5 (98-107) mmol/L Carbon Dioxide 23 (22-30) mmol/L BUN 7 (7-17) mg/dL Creatinine 0.4 L (0.7-1.2) mg/dL Glucose 97 (65-100) mg/dL Calcium 8.6 (8.4-10.2) mg/dL Adrenal panel 06/28/18 Range/Units 06:49 Sodium 141 (137-145) mmol/L Potassium 4.2 (3.6-5.0) mmol/L Chloride 106.5 (98-107) mmol/L Carbon Dioxide 23 (22-30) mmol/L BUN 7 (7-17) mg/dL Creatinine 0.4 L (0.7-1.2) mg/dL Glucose 97 (65-100) mg/dL Calcium 8.6 (8.4-10.2) mg/dL
[2018-06-28] MEDS: HEPARIN SUB-Q SCH (14:34)
--- NOTE | 2018-06-29 08:17 | XRay Report ---
FINAL REPORT PROCEDURE: XRAY CHEST 2 VIEWS TECHNIQUE: PA and lateral chest radiographs were obtained. CPT 44260 HISTORY: chest pain COMPARISON: No prior studies are available for comparison. FINDINGS: Heart: Normal. Mediastinum/Vessels: Normal. Lungs/Pleural space: There is suboptimal inspiration. There are no infiltrates, effusions or pneumoth oraces.. Bony thorax: No acute osseous abnormality. Other: IMPRESSION: There is no acute cardiopulmonary abnormality..
== END 2018-06-28 14:00 | disposition home or self-care (01) | DRG 445 ==
LOC: ED 20:59 → 4A 06-27 00:45
PROVIDERS: ADMIT Internal Medicine; ATTEND Internal Medicine
DX: K80.00 Calculus of gallbladder with acute cholecystitis without obstruction (principal); Z68.42 Body mass index [BMI] 45.0-49.9, adult; K21.9 Gastro-esophageal reflux disease without esophagitis; G43.909 Migraine, unspecified, not intractable, without status migrainosus; J45.909 Unspecified asthma, uncomplicated; E66.01 Morbid (severe) obesity due to excess calories; F41.9 Anxiety disorder, unspecified; F31.9 Bipolar disorder, unspecified; F17.210 Nicotine dependence, cigarettes, uncomplicated; R07.89 Other chest pain; Z88.8 Allergy status to other drugs, medicaments and biological substances; Z71.6 Tobacco abuse counseling
CPT/HCPCS: 36415; 71046; 80048; 80076; 81001; 81025; 82550; 82553; 83880; 84484; 85025; 85027; 85379; 85610; 85730; 93005; 93010; 99406; G0378; J1170; J1200; J1644; J1885; J2060; J2270; J2405; J7030

== ENCOUNTER 2018-07-01 05:59 | Day surgery (SDC) | payer MEDICAID ==
[2018-07-01] MEDS ORDERED: NACL BACTERIOSTATIC INFILTRATI ONE (06:19)
[2018-07-01] MEDS ORDERED: LACTATED RINGERS 1,000 ML ONE ×2 (06:19→10:55)
[2018-07-01] MEDS ORDERED: SUBLIMAZE IV NR (06:58)
--- NOTE | 2018-07-01 06:58 | Anesthesia Day of Surgery ---
Anesthesia Day of Surgery - Day of Surgery Patient Examined: Yes Patient H&P Reviewed: Yes Patient is NPO: Yes
--- NOTE | 2018-07-01 06:58 | Anesthesia Consultation ---
Anesthesia Consult and Med Hx Date of service: 07/01/18 - Airway Anesthetic Teeth Evaluation: Good ROM Head & Neck: Adequate Mental/Hyoid Distance: Adequate Mallampati Class: Class III Intubation Access Assessment: Possibly Difficult - Pulmonary Exam CTA: Yes - Cardiac Exam Cardiac Exam: RRR - Pre-Operative Health Status ASA Pre-Surgery Classification: ASA3 Proposed Anesthetic Plan: General - Pulmonary Hx Smoking: Yes (LIGHTLY NOW; 1-2 A WEEK) 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) COPD: No Hx Pneumonia: Yes - Cardiovascular System Hx Hypertension: No - Central Nervous System Hx Seizures: No Hx Back Pain: Yes (LUMBAR) Hx Psychiatric Problems: Yes (ADD, Bipolar) - Endocrine Hx Renal Disease: No Hx End Stage Renal Disease: No Hx Hypothyroidism: No Hx Hyperthyroidism: No - Hematic Hx Anemia: No Hx Sickle Cell Disease: No - Other Systems Hx Alcohol Use: Yes (SOCIALLY) Hx Substance Use: No Hx Cancer: No - Additional Comments Anesthesia Medical History Comments: migraine headache
[2018-07-01] MEDS ORDERED: LACTATED RINGERS 1,000 ML IV SCH (07:00)
[2018-07-01] MEDS ORDERED: PEPCID IV NR (07:00)
[2018-07-01] MEDS: VERSED IV PRN ×2 (07:11→07:28)
[2018-07-01] MEDS ORDERED: SUBLIMAZE ONE (07:12)
[2018-07-01] MEDS ORDERED: ZOFRAN ONE ×2 (07:13→10:54)
[2018-07-01] MEDS ORDERED: XYLOCAINE 1% 20 mL ONE (07:13)
[2018-07-01] MEDS ORDERED: MARCAINE 0.5% INFILTRATI ONE ×3 (07:13→08:28)
[2018-07-01] MEDS ORDERED: ANCEF/STERILE WATER 2 GM/20 ML IV NR (07:24)
[2018-07-01] MEDS ORDERED: ZEMURON IV ONE (07:26)
[2018-07-01] MEDS ORDERED: DILAUDID ONE (07:26)
[2018-07-01] MEDS ORDERED: DIPRIVAN 10 MG/ML IV ONE (07:26)
[2018-07-01] MEDS ORDERED: XYLOCAINE MPF 2% ONE (07:27)
[2018-07-01] MEDS ORDERED: VERSED ONE (07:59)
[2018-07-01] MEDS ORDERED: ZOFRAN IV ONE (08:00)
[2018-07-01] MEDS ORDERED: SUBLIMAZE IV ONE (08:00)
[2018-07-01] MEDS ORDERED: XYLOCAINE 1% 20 mL INFILTRATI ONE (08:28)
[2018-07-01] MEDS ORDERED: NACL 0.9% IR ONE ×2 (08:28→09:38)
[2018-07-01] MEDS ORDERED: ANCEF ONE (08:31)
[2018-07-01] MEDS ORDERED: ZOFRAN IV PRN (09:16)
[2018-07-01] MEDS ORDERED: SUBLIMAZE IV PRN (09:16)
[2018-07-01] MEDS ORDERED: DILAUDID IV PRN (09:16)
[2018-07-01] MEDS ORDERED: NEO SYNEPHRINE/NS Syringe(OR USE) IV ONE (09:22)
[2018-07-01] MEDS ORDERED: BLOXIVERZ ONE (10:53)
[2018-07-01] MEDS ORDERED: ROBINUL ONE (10:53)
[2018-07-01] MEDS ORDERED: TORADOL ONE (10:54)
--- NOTE | 2018-07-01 11:06 | Short Stay Summary ---
Short Stay Documentation Date of service: 07/01/18 - History Principal diagnosis: symptomatic cholelithiasis H&P: obtained from office - Allergies and Medications Current Medications: Allergies terfenadine [From Seldane] Allergy (Verified 06/25/18 16:23) Rash Home Medications Medication Instructions Recorded Confirmed Last Taken Type OXcarbazepine [Trileptal] 300 mg PO BID 06/25/18 06/27/18 06/30/18 History traMADol [Ultram 50 MG tab] 50 mg PO Q6H PRN #12 tablet 06/28/18 07/01/18 06/30/18 Rx Prochlorperazine Maleate 5 mg PO DAILY 07/01/18 07/01/18 06/30/18 History [Compazine] traZODone [Desyrel] 200 mg PO BID 07/01/18 07/01/18 06/30/18 History Active Medications Cefazolin Sodium (Ancef/Sterile Water 2 Gm/20 Ml) 2 gm IV PREOP NR Stop: 07/01/18 16:00 Famotidine (Pepcid) 20 mg IV PREOP NR Stop: 07/01/18 12:00 Last Admin: 07/01/18 07:25 Dose: 20 mg Documented by: Fentanyl (Sublimaze) 50 mcg IV Q5MIN PRN PRN Reason: Pain , Severe (7-10) Stop: 07/01/18 20:00 Hydromorphone HCl (Dilaudid) 0.5 mg IV Q10MIN PRN PRN Reason: Pain , Severe (7-10) Stop: 07/01/18 20:00 Lactated Ringer's (Lactated Ringers) 1,000 mls @ 100 mls/hr IV DIRECT MARLENE Last Admin: 07/01/18 07:10 Dose: 100 mls/hr Documented by: Midazolam HCl (Versed) 2 mg IV PREOP PRN PRN Reason: Anxiety Stop: 07/01/18 12:00 Last Admin: 07/01/18 07:28 Dose: 2 mg Documented by: Ondansetron HCl (Zofran) 4 mg IV ONCE PRN PRN Reason: Nausea And Vomiting Stop: 07/01/18 16:00 - Brief post op/procedure progress note Date of procedure: 07/01/18 Pre-op diagnosis: symptomatic cholelithiasis Post-op diagnosis: other (chronic cholecystitis) Procedure: robotic assisted cholecystectomy Anesthesia: GETA, local Findings: gallbladder with thickened wall, thick adhesions from omentum and stomach to gallbladder, chronic inflammation at neck of gallbladder Surgeon: PARTH CORDOBA Sales Promotion Director: ELYSE DIANA Estimated blood loss: minimal Pathology: list (gallbladder) Specimen disposition: to lab - Hospital course Hospital course: Pt observed in PACU and discharged to home in stable condition when criteria met - Disposition Condition at discharge: Good Short Stay Discharge Plan Activity: other (no heavy lifting, no driving if taking prescription pain medication) Diet: low fat Wound: open to air Additional Instructions: SEE PRINTED DISCHARGE INSTRUCTIONS Follow up with: BHAVIN TERRAZAS [Primary Care Provider] - 7 Days PARTH CORDOBA DO [Staff Physician] - 14 Days Prescriptions: Oxycodone HCl [oxyCODONE TAB] 10 mg PO Q6H PRN #30 tablet PRN Reason: Pain
[2018-07-01] MEDS ORDERED: PERCOCET 5/325 PO PRN (12:22)
[2018-07-01] MEDS ORDERED: PERCOCET 5/325 ONE ×2 (12:26)
[2018-07-01 12:42] VITALS: BP 114/56
--- NOTE | 2018-07-01 17:28 | Operative Report ---
PREOPERATIVE DIAGNOSIS: Symptomatic cholelithiasis. POSTOPERATIVE DIAGNOSIS: Chronic cholecystitis. PROCEDURE: Robotic assisted cholecystectomy. ANESTHESIA: General endotracheal anesthesia, local. FINDINGS: Gallbladder with thickened wall, thick adhesions from the omentum and stomach to gallbladder, chronic inflammation at the neck of the gallbladder. SURGEON: Nahomi Merritt DO COMPETITIVE INTELLIGENCE MANAGER: Emilia Dominique MD ESTIMATED BLOOD LOSS: Minimal. PATHOLOGY: Gallbladder. SPECIMEN DISPOSITION: To lab. DISPOSITION AND CONDITION: Stable to PACU. HISTORY OF PRESENT ILLNESS AND INDICATION: The patient is a 28-year-old female, who is referred to the surgery office for persistent right upper quadrant pain. The patient had a workup in the past, which included a right upper quadrant ultrasound that showed a 1.9 cm stone in the gallbladder and later presented to the Emergency Room with similar symptoms and had a CT scan of the abdomen and pelvis, which showed a thickened gallbladder wall with pericholecystic fluid, possible acute cholecystitis. The patient had felt better in the Emergency Room that day and was started on p.o. antibiotics and discharged in stable condition. However, after this event, the patient states that she has continued intermittent right upper quadrant pain, which limits her activities of daily living. After all images and labs were reviewed, cholecystectomy was recommended. All risks, benefits, and alternatives of surgery were discussed with the patient. The robotic, laparoscopic, and open approach were discussed with the patient as well as, pre, dm, postoperative expectations. All questions were answered and consent was obtained. The patient's mother was present during conversation. PROCEDURE IN DETAIL: The patient was identified in the preoperative area and taken back to the operating room and placed on the operating table in supine position. After anesthesia was induced, the bilateral arms were tucked with all bony prominences padded appropriately. The abdomen was then prepped and draped in the usual sterile fashion. Timeout was performed. Local anesthetic was infiltrated at all skin incision sites. A supraumbilical incision was made using a 15 blade through which a Veress needle was inserted. The Veress needle positioning was confirmed using the saline drop test. However, despite 2 attempts, the insufflation pressures remained high and so the Veress needle was withdrawn. It was therefore decided to proceed with an Optiview approach. A 12 mm Optiview trocar was placed through the incision and slowly advanced in the usual fashion through the abdominal wall layers until the abdomen was entered. The abdomen was then insufflated to 15 mmHg and the abdomen inspected. There was no underlying injury to any of the abdominal contents. The patient was placed in reverse Trendelenburg and tilted to the left. She did have an enlarged liver. An additional 8 mm left upper quadrant robotic trocar was placed under direct visualization. The liver was lifted cephalad and the gallbladder was identified. The gallbladder appeared thickened. There were omental adhesions to the gallbladder. At this point, 2 additional 8 mm robotic trocars were placed, one in the mid right abdomen and one in the mid lateral right abdomen under direct visualization. The robot was then docked from the patient's right shoulder and a monopolar hook was placed in arm #1 and Cadiere grasper in arm #2 and a ProGrasp in arm #3. One Ray-Farrukh was placed into the abdomen via the 12 mm port and then the camera inserted. The surgeon was transferred to the console. The gallbladder was lifted cephalad and the omental adhesions were carefully dissected from the gallbladder using hook electrocautery until the neck of the gallbladder was identified. The cystic duct and artery were then carefully dissected. There was significant inflammation at the gallbladder neck and Calot's node was scarred down to this area. Therefore, it was decided to perform a dome down approach. The peritoneum was scored at the dome of the gallbladder and the dissection carried down from the dome to the infundibulum. The cystic duct and artery were then identified. The cystic duct and artery were seen as only 2 structures entering the gallbladder. The critical view was obtained. 2 Weck clips were placed on the proximal aspect of the cystic artery and one distally and the artery was transected in between the clips. The cystic duct unfortunately we could not get to the clips positioned appropriately in order placed around the cystic duct. Therefore, a PDS Endoloop was inserted by an assistant manager trainee via arm #1. After arm #1 was docked and placed around the gallbladder and cinched at the proximal aspect of the cystic duct. Another Endoloop was placed on the distal aspect of the cystic duct and cystic duct was transected in between the Endoloops using an EndoShears by the assistant manager trainee. The gallbladder was placed to the side. The cystic artery and duct were then examined and the Endoloop on the cystic duct did not appear to be fastened tight enough and there was some bile leakage. Cystic duct was grasped and a three 1 cm Endoclips were placed across the entire cystic duct. This was done in a similar fashion on the cystic artery, which did show signs of some bleeding due to dislodged clips. The robot was then undocked and the remainder of the procedure was performed laparoscopically. The surgeon was scrubbed back in. The liver was lifted cephalad and the gallbladder fossa and liver bed were irrigated with saline until the irrigant returned clear. There was no bleeding or bile leakage from the liver bed. The clips placed on the cystic artery and cystic duct were visualized and intact. There was no bleeding or bile leakage from this area as well. The patient was placed into neutral position and Morison's pouch was irrigated until the irrigant returned clear. Gallbladder was placed into an EndoCatch bag and removed through the abdomen via the 12 mm port. There was a large stone palpated in the gallbladder. The Ray-Farrukh was also removed. Any loose clips were also retrieved from the abdomen. The clips on the cystic duct and artery were once again visualized and intact. The gallbladder was examined on the back table and only one tubular structure was seen entering the gallbladder, which was the cystic duct. At this point, the 12 mm port fascia was closed with interrupted 0 Vicryl suture. The remaining ports were then removed under direct visualization and the abdomen desufflated. All skin incisions were once again infiltrated with local anesthetic. The skin was closed with 4-0 Monocryl subcuticular stitches and skin glue. At the end of the case, all sponge, instrument, sharp counts were correct x 2. The patient was awoken from anesthesia, extubated, and taken to PACU in stable condition. JOB# [id number] OLVIIA/JOAQUIN BURTON
== END 2018-07-01 06:00 | disposition home or self-care (01) ==
LOC: OR 05:59
PROVIDERS: ATTEND Surgery
DX: K80.10 Calculus of gallbladder with chronic cholecystitis without obstruction (principal); G43.909 Migraine, unspecified, not intractable, without status migrainosus; K21.9 Gastro-esophageal reflux disease without esophagitis; F31.9 Bipolar disorder, unspecified; F41.9 Anxiety disorder, unspecified; F17.210 Nicotine dependence, cigarettes, uncomplicated; Z83.3 Family history of diabetes mellitus; Z72.89 Other problems related to lifestyle; Z79.899 Other long term (current) drug therapy; Z82.49 Family history of ischemic heart disease and other diseases of the circulatory system; Z88.8 Allergy status to other drugs, medicaments and biological substances
CPT/HCPCS: 47562; 81025; 88304; A4217; J0690; J1170; J1885; J2250; J2370; J2405; J2704; J2710; J3010; J7120

== ENCOUNTER 2019-06-19 15:10 | Emergency (ER) | payer MEDICAID ==
--- NOTE | 2019-06-19 18:24 | Event Note ---
ED Screening Note ED Screening Note: three days ago had a slip and fall c/o right knee pain and right tib fib pain states she landed on her knee she is also c/o lower back pain but did not fall onto the back pmhx asthma, bipolar, migraines This initial assessment/diagnostic orders/clinical plan/treatment(s) is/are subject to change based on patients health status, clinical progression and re- assessment by fellow clinical providers in the ED. Further treatment and workup at subsequent clinical providers discretion. Patient/guardian urged not to elope from the ED as their condition may be serious if not clinically assessed and managed. Initial orders include: XR of the right knee and tib fib
--- NOTE | 2019-06-19 19:22 | XRay Report ---
RIGHT TIB-FIB, 4 VIEWS 06/19/2019 INDICATION / CLINICAL INFORMATION: fall, right tib fib pain. COMPARISON: None available. FINDINGS: No fracture or dislocation. Signer Name: Aleksey Diana MD Signed: 06/19/2019 7:18 PM Workstation Name: [id number]
[2019-06-19] MEDS ORDERED: ONDANSETRON 4 MG ODT TAB PO ONE (20:34)
[2019-06-19] MEDS ORDERED: HYDROcodone/ACETAMINOPHEN 7.5-325MG TAB PO ONE (20:34)
[2019-06-19] MEDS ORDERED: IBUPROFEN 600 MG TAB PO ONE (20:34)
--- NOTE | 2019-06-19 21:27 | XRay Report ---
LUMBAR SPINE 3 VIEWS INDICATION / CLINICAL INFORMATION: fall - severe pain COMPARISON: None available. FINDINGS: BONES / JOINT(S): No acute fracture or subluxation. No significant arthritis. SOFT TISSUES: No significant abnormality. ADDITIONAL FINDINGS: None. Signer Name: Daniel Terry MD Signed: 06/19/2019 9:23 PM Workstation Name: [id number]
--- NOTE | 2019-06-19 21:40 | Emergency Department Report ---
ED Fall HPI - General Chief Complaint: Fall Stated Complaint: RT KNEE/LFT KNEE/BACK PAIN Time Seen by Provider: 06/19/19 18:22 Source: patient Mode of arrival: Ambulatory - History of Present Illness Initial Comments: Patient is a 29-year-old female with a history of chronic depression and anxiety, morbid obesity and chronic low back pain who presents to the ED with complaint of acute onset severe right knee, right lower leg and lower back pain for the last 4 days after she slipped and fell down on the concrete ground and landed on her right knee. Patient states that initially pain was mild but subsequently the pain got worse this patient in the last 24 hours. Patient states that the pain is worse with any form of ambulation or bending weight on the right leg. Patient denies dizziness, syncope, chest pain, shortness of breath, nausea and vomiting, seizures, numbness and tingling or weakness of lower extremities bilaterally, urinary or bowel incontinence or hip pain. MD Complaint: fall, other (RIGHT KNEE; Right lower leg and lower back pain) -: Sudden, days(s) (4) Fall From: standing, other (slipped and fell down a concrete pavement) When Fall Occurred: # days [employer]LECT[employer] MAINTE[employer]PERVIS[employer] (4) Fall Witnessed: yes, by bystander Place Fall Occurred: street Loss of Consciousness: none Prolonged Down Time?: no Symptoms Prior to Fall: none Location: back (lower), other (right knee and lower leg) Location - Extremities: Right: Knee (pain), Leg (pain) Severity: severe Severity scale (0 -10): 8 Quality: sharp, aching Context: tripped/slipped Associated Symptoms: denies. denies: headache, neck pain, numbness, weakness, chest paint, shortness of breath, abdominal pain, hematuria, unable to walk, lightheaded, vertigo, confusion, other - Related Data Home Medications Medication Instructions Recorded Confirmed Last Taken OXcarbazepine [Trileptal] 300 mg PO BID 06/25/18 06/27/18 06/30/18 Prochlorperazine Maleate 5 mg PO DAILY 07/01/18 07/01/18 06/30/18 [Compazine] traZODone [Desyrel] 200 mg PO BID 07/01/18 07/01/18 06/30/18 Previous Rx's Medication Instructions Recorded Last Taken Type traMADoL [Ultram 50 MG tab] 50 mg PO Q6H PRN #12 tablet 06/28/18 06/30/18 Rx Oxycodone HCl [oxyCODONE TAB] 10 mg PO Q6H PRN #30 tablet 07/01/18 Unknown Rx Acetaminophen/Codeine [Tylenol 1 tab PO Q6H PRN #12 tab 06/19/19 Unknown Rx /Codeine # 3 tab] Cyclobenzaprine [Flexeril] 10 mg PO Q8H PRN #21 tablet 06/19/19 Unknown Rx Ibuprofen [Motrin] 800 mg PO Q8HR PRN #30 tablet 06/19/19 Unknown Rx Allergies Allergy/AdvReac Type Severity Reaction Status Date / Time terfenadine [From Seldane] Allergy Rash Verified 06/25/18 16:23 ED Review of Systems ROS: Stated complaint: RT KNEE/LFT KNEE/BACK PAIN Other details as noted in HPI Constitutional: denies: chills, fever Eyes: denies: eye pain, eye discharge, vision change ENT: denies: ear pain, throat pain Respiratory: denies: cough, shortness of breath, wheezing Cardiovascular: denies: chest pain, palpitations Endocrine: no symptoms reported Gastrointestinal: denies: abdominal pain, nausea, diarrhea Genitourinary: denies: urgency, dysuria, discharge Musculoskeletal: back pain (lower), joint swelling (right knee), arthralgia (right knee and lower leg pain), myalgia Skin: denies: rash, lesions Neurological: denies: headache, weakness, paresthesias Psychiatric: denies: anxiety, depression Hematological/Lymphatic: denies: easy bleeding, easy bruising ED Past Medical Hx - Past Medical History Previous Medical History?: Yes Hx Hypertension: No Hx Congestive Heart Failure: No Hx Diabetes: No Hx Deep Vein Thrombosis: No Hx GERD: Yes Hx Renal Disease: No Hx Sickle Cell Disease: No Hx Headaches / Migraines: Yes (MIGRAINES) Hx Seizures: No 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) Hx COPD: No Hx HIV: No - Surgical History Past Surgical History?: No - Social History Smoking Status: Light Tobacco Smoker - Medications Home Medications: Home Medications Medication Instructions Recorded Confirmed Last Taken Type OXcarbazepine [Trileptal] 300 mg PO BID 06/25/18 06/27/18 06/30/18 History traMADoL [Ultram 50 MG tab] 50 mg PO Q6H PRN #12 tablet 06/28/18 07/01/18 06/30/18 Rx Oxycodone HCl [oxyCODONE TAB] 10 mg PO Q6H PRN #30 tablet 07/01/18 Unknown Rx Prochlorperazine Maleate 5 mg PO DAILY 07/01/18 07/01/18 06/30/18 History [Compazine] traZODone [Desyrel] 200 mg PO BID 07/01/18 07/01/18 06/30/18 History Acetaminophen/Codeine [Tylenol 1 tab PO Q6H PRN #12 tab 06/19/19 Unknown Rx /Codeine # 3 tab] Cyclobenzaprine [Flexeril] 10 mg PO Q8H PRN #21 tablet 06/19/19 Unknown Rx Ibuprofen [Motrin] 800 mg PO Q8HR PRN #30 tablet 06/19/19 Unknown Rx ED Physical Exam - General Limitations: No Limitations General appearance: alert, in no apparent distress - Head Head exam: Present: atraumatic, normocephalic, normal inspection - Eye Eye exam: Present: normal appearance, PERRL, EOMI Pupils: Present: normal accommodation - ENT ENT exam: Present: normal exam, normal orophraynx, mucous membranes moist, TM's normal bilaterally, normal external ear exam - Neck Neck exam: Present: normal inspection, full ROM. Absent: tenderness, lymphad enopathy - Respiratory Respiratory exam: Present: normal lung sounds bilaterally. Absent: respiratory distress, wheezes, rales, rhonchi, stridor, chest wall tenderness, accessory muscle use, decreased breath sounds - Cardiovascular Cardiovascular Exam: Present: normal rhythm, tachycardia, normal heart sounds. Absent: systolic murmur, diastolic murmur, rubs, gallop - GI/Abdominal GI/Abdominal exam: Present: soft, normal bowel sounds. Absent: tenderness, guarding, rebound, hyperactive bowel sounds, hypoactive bowel sounds, organomegaly - Extremities Exam Extremities exam: Present: normal inspection, tenderness (Palpable right knee and lower leg tenderness), normal capillary refill, joint swelling (right knee), calf tenderness (mild tenderness of right calf). Absent: full ROM (limited right Knee ROM due to severe pain), pedal edema - Back Exam Back exam: Present: normal inspection, full ROM, tenderness (palpable lumbosacral paraspinal musculoskeletal tenderness), muscle spasm, paraspinal t enderness. Absent: CVA tenderness (L), vertebral tenderness - Neurological Exam Neurological exam: Present: alert, oriented X3, CN II-XII intact, normal gait, r eflexes normal - Psychiatric Psychiatric exam: Present: normal affect, normal mood - Skin Skin exam: Present: warm, dry, intact, normal color. Absent: rash ED Course Vital Signs 06/19/19 06/19/19 06/19/19 15:17 20:45 20:56 Temperature 97.5 F L Pulse Rate 122 H Respiratory 20 16 16 Rate Blood Pressure 143/88 O2 Sat by Pulse 99 Oximetry ED Medical Decision Making - Radiology Data Radiology results: report reviewed, image reviewed Findings [facility] [address] [place] [address] XRay Report Signed Patient: VERONA MEDELLIN MR#: [id number] : 1990 Acct:[id number] Age/Sex: 29 / F ADM Date: 06/19/19 Loc: ED Attending Dr: Ordering Physician: LUPILLO THOMSON Date of Service: 06/19/19 Procedure(s): XR spine lumbosacral 2-3V Accession Number(s): [id number] cc: LUPILLO THOMSON Fluoro Time In Minutes: LUMBAR SPINE 3 VIEWS INDICATION / CLINICAL INFORMATION: fall - severe pain COMPARISON: None available. FINDINGS: BONES / JOINT(S): No acute fracture or subluxation. No significant arthritis. SOFT TISSUES: No significant abnormality. ADDITIONAL FINDINGS: None. Signer Name: Daniel Terry MD Signed: 06/19/2019 9:23 PM Workstation Name: [id number] Transcribed By: ES Dictated By: Daniel Terry MD Electronically Authenticated By: Daniel Terry MD Signed Date/Time: 06/19/192122 DD/ 22 TD/TT: Findings [facility] [address] [place] [address] XRay Report Signed Patient: VERONA MEDELLIN MR#: [id number] : 1990 Acct:[id number] Age/Sex: 29 / F ADM Date: 06/19/19 Loc: ED Attending Dr: Ordering Physician: LUPILLO RAMIREZ Date of Service: 06/19/19 Procedure(s): XR tibia fibula 2V RT Accession Number(s): [id number] cc: LUPILLO RAMIREZ Fluoro Time In Minutes: RIGHT TIB-FIB, 4 VIEWS 06/19/2019 INDICATION / CLINICAL INFORMATION: fall, right tib fib pain. COMPARISON: None available. FINDINGS: No fracture or dislocation. Signer Name: Aleksey Diana MD Signed: 06/19/2019 7:18 PM Workstation Name: [id number] Transcribed By: YUKI Dictated By: Aleksey Diana MD Electronically Authenticated By: Aleksey Diana MD Signed Date/Time: 06/19/191917 - Medical Decision Making This is a 29-year-old female with a history of chronic low back pain, anxiety and depression, and morbid obesity who presents to the ED with complaint of acute onset persistent severe right knee pain and right lower leg pain, and acute exacerbation of chronic low back pain for the last 4 days after she slipped and fell down on the concrete ground and landed on the right knee. Patient states that her pain is less than in the last 24 hours. In the ED, patient is alert and oriented 3, anxious and tachycardic in triage but in no acute distress except pain during physical exam. Right knee and tib-fib x-ray showed no acute fractures or subluxations. The L-spine x-ray also shows no acute fractures or subluxations. Patient was treated for pain in the ED and on reevaluation, patient's pain is well-controlled with medications. The right knee was splinted and Butch wrap and the patient was discharged home on pain medications and muscle relaxants and advised follow-up with her primary care physician in 5-7 days for reevaluation or return to the emergency department immediately for further evaluation if her symptoms get worse. - Differential Diagnosis Knee fracture; Leg contusion; Muscle spasm; muscle strain Critical care attestation.: If time is entered above; I have spent that time in minutes in the direct care of this critically ill patient, excluding procedure time. ED Disposition Clinical Impression: Acute exacerbation of chronic low back pain Sprain of right knee Qualifiers: Encounter type: initial encounter Involved ligament of knee: unspecified ligament Qualified Code(s): S83.91XA - Sprain of unspecified site of right knee, initial encounter Muscle strain of right lower extremity Qualifiers: Encounter type: initial encounter Qualified Code(s): S86.911A - Strain of unspecified muscle(s) and tendon(s) at lower leg level, right leg, initial encounter Disposition: TO HOME OR SELFCARE Is pt being admited?: No Does the pt Need Aspirin: No Condition: Stable Instructions: Knee Sprain (ED), Muscle Strain (ED), Muscle Spasm (ED), Back Pain (ED) Additional Instructions: Take medications with food, drink plenty of fluids and follow-up with her primary care physician in 5-7 days for reevaluation. Return to the ED immediately if symptoms get worse. Prescriptions: Cyclobenzaprine [Flexeril] 10 mg PO Q8H PRN #21 tablet PRN Reason: Muscle Spasm Ibuprofen [Motrin] 800 mg PO Q8HR PRN #30 tablet PRN Reason: Pain , Severe (7-10) Acetaminophen/Codeine [Tylenol /Codeine # 3 tab] 1 tab PO Q6H PRN #12 tab PRN Reason: Pain , Severe (7-10) Referrals: BHAVIN TERRAZAS MD [Staff Physician] - 3-5 Days Forms: Work/School Release Form(ED) Time of Disposition: 21:47 Print Language: URDU
[2019-06-19 22:05] VITALS: BP 126/76
== END 2019-06-19 22:30 | disposition home or self-care (01) ==
LOC: ED 15:10
DX: S83.91XA Sprain of unspecified site of right knee, initial encounter (principal); S86.911A Strain of unspecified muscle(s) and tendon(s) at lower leg level, right leg, initial encounter; M54.5 Low back pain; G89.29 Other chronic pain; K21.9 Gastro-esophageal reflux disease without esophagitis; G43.909 Migraine, unspecified, not intractable, without status migrainosus; J45.909 Unspecified asthma, uncomplicated; F17.200 Nicotine dependence, unspecified, uncomplicated; Z79.1 Long term (current) use of non-steroidal anti-inflammatories (NSAID); Z79.899 Other long term (current) drug therapy; Z88.8 Allergy status to other drugs, medicaments and biological substances; W18.30XA Fall on same level, unspecified, initial encounter; Y93.89 Activity, other specified; Y92.89 Other specified places as the place of occurrence of the external cause; Y99.8 Other external cause status
CPT/HCPCS: 72100; Q0162

== ENCOUNTER 2020-09-18 13:31 | Emergency (ER) | payer MEDICAID ==
[2020-09-18 14:29] VITALS: BP 138/90
[2020-09-18] MEDS ORDERED: ASPIRIN 325 MG TAB PO ONE (14:30)
--- NOTE | 2020-09-18 15:09 | Event Note ---
ED Screening Note Date of service: 09/18/20 Time: 15:08 ED Screening Note: 28-year-old obese female with a past medical history of bipolar disorder and ADHD and hypertension presents to the ER today with complaints of feeling dizzy, headache and left-sided chest pain started today. This initial assessment/diagnostic orders/clinical plan/treatment(s) is/are subject to change based on patients health status, clinical progression and re- assessment by fellow clinical providers in the ED. Further treatment and workup at subsequent clinical providers discretion. Patient/guardian urged not to elope from the ED as their condition may be serious if not clinically assessed and managed. Initial orders include: Cardiac order set
[2020-09-18 15:19] LABS: Basophils % (Auto) 0.5 % (0.0-1.8); Eosinophils % (Auto) 0.5 % (0.0-4.3); Hematocrit 40.4 % (30.3-42.9); Hemoglobin 13.7 gm/dl (10.1-14.3); Lymphocytes # (Auto) 1.9 K/mm3 (1.2-5.4); Mean Corpuscular HGB Conc 34 % (30-34); Mean Corpuscular Volume 83 fl (79-97); Monocytes # (Auto) 0.4 K/mm3 (0.0-0.8); Monocytes % (Auto) 5.7 % (0.0-7.3); Platelet Count 231 K/mm3 (140-440); Red Blood Count 4.89 M/mm3 (3.65-5.03); Red Cell Distribution Width 13.5 % (13.2-15.2)
--- NOTE | 2020-09-18 15:24 | XRay Report ---
CHEST 2 VIEWS INDICATION / CLINICAL INFORMATION: chest pain. COMPARISON: 06/27/18 FINDINGS: SUPPORT DEVICES: None. HEART / MEDIASTINUM: No significant abnormality. LUNGS / PLEURA: No significant pulmonary or pleural abnormality. No pneumothorax. ADDITIONAL FINDINGS: No significant additional findings. IMPRESSION: 1. No acute findings. Signer Name: Washington Johnston MD Signed: 09/18/2020 3:19 PM Workstation Name: [id number]
[2020-09-18 15:42] LABS: Alanine Aminotransferase 19 units/L (7-56); Albumin 3.9 g/dL (3.9-5); Blood Urea Nitrogen 7 mg/dL (7-17); Calcium 8.7 mg/dL (8.4-10.2); Hemolysis Index 6
[2020-09-18 16:06] LABS: BUN/Creatinine Ratio 14
[2020-09-18] MEDS ORDERED: ASPIRIN 325 MG TAB ONE (19:39)
--- NOTE | 2020-09-18 19:46 | Emergency Department Report ---
ED General Adult HPI - General Chief complaint: Chest Pain Stated complaint: ELEVATED BLOOD PRESSURE Time Seen by Provider: 09/18/20 14:55 Source: patient Mode of arrival: Ambulatory Limitations: No Limitations - History of Present Illness Initial comments: Patient is a 30-year-old female presents emergency room with complaints of dizziness and lightheadedness that occurred today. She states that she went to her primary care doctor and was advised her blood pressure was 179/100. She states that she has been out of her lisinopril for a week. Patient states that she was also having substernal chest pain described as intermittent sharp pain. She states that she has had been under a lot of stress and has been working a lot and that stress gives her anxiety. She states that she just needs another day off work and is requesting an extra day off work. She denies any shortness of breath, hemoptysis, fever, vomiting, diarrhea, leg swelling. She has a past medical history of asthma and hypertension. She states her last menstrual cycle was the end of last month. She states that she does vape but denies any cigarette use. she states she is on low dose lisinopril - Related Data Home Medications Medication Instructions Recorded Confirmed Last Taken OXcarbazepine [Trileptal] 300 mg PO BID 06/25/18 06/27/18 06/30/18 Prochlorperazine Maleate 5 mg PO DAILY 07/01/18 07/01/18 06/30/18 [Compazine] traZODone [Desyrel] 200 mg PO BID 07/01/18 07/01/18 06/30/18 Previous Rx's Medication Instructions Recorded Last Taken Type traMADoL [Ultram 50 MG tab] 50 mg PO Q6H PRN #12 tablet 06/28/18 06/30/18 Rx Oxycodone HCl [oxyCODONE TAB] 10 mg PO Q6H PRN #30 tablet 07/01/18 Unknown Rx Acetaminophen/Codeine [Tylenol 1 tab PO Q6H PRN #12 tab 06/19/19 Unknown Rx /Codeine # 3 tab] Cyclobenzaprine [Flexeril] 10 mg PO Q8H PRN #21 tablet 06/19/19 Unknown Rx Ibuprofen [Motrin] 800 mg PO Q8HR PRN #30 tablet 06/19/19 Unknown Rx Lisinopril [Zestril TAB] 2.5 mg PO QDAY #30 tab 09/18/20 Unknown Rx Allergies Allergy/AdvReac Type Severity Reaction Status Date / Time terfenadine [From Seldane] Allergy Rash Verified 09/18/20 14:29 ED Review of Systems ROS: Stated complaint: ELEVATED BLOOD PRESSURE Other details as noted in HPI Comment: All other systems reviewed and negative ED Past Medical Hx - Past Medical History Hx Hypertension: No Hx Congestive Heart Failure: No Hx Diabetes: No Hx Deep Vein Thrombosis: No Hx GERD: Yes Hx Renal Disease: No Hx Sickle Cell Disease: No Hx Headaches / Migraines: Yes (MIGRAINES) Hx Seizures: No 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) Hx COPD: No Hx HIV: No - Social History Smoking Status: Current Some Day Smoker Substance Use Type: None - Medications Home Medications: Home Medications Medication Instructions Recorded Confirmed Last Taken Type OXcarbazepine [Trileptal] 300 mg PO BID 06/25/18 06/27/18 06/30/18 History traMADoL [Ultram 50 MG tab] 50 mg PO Q6H PRN #12 tablet 06/28/18 07/01/18 06/30/18 Rx Oxycodone HCl [oxyCODONE TAB] 10 mg PO Q6H PRN #30 tablet 07/01/18 Unknown Rx Prochlorperazine Maleate 5 mg PO DAILY 07/01/18 07/01/18 06/30/18 History [Compazine] traZODone [Desyrel] 200 mg PO BID 07/01/18 07/01/18 06/30/18 History Acetaminophen/Codeine [Tylenol 1 tab PO Q6H PRN #12 tab 06/19/19 Unknown Rx /Codeine # 3 tab] Cyclobenzaprine [Flexeril] 10 mg PO Q8H PRN #21 tablet 06/19/19 Unknown Rx Ibuprofen [Motrin] 800 mg PO Q8HR PRN #30 tablet 06/19/19 Unknown Rx Lisinopril [Zestril TAB] 2.5 mg PO QDAY #30 tab 09/18/20 Unknown Rx ED Physical Exam - General Limitations: No Limitations General appearance: alert, in no apparent distress - Head Head exam: Present: atraumatic, normocephalic - Eye Eye exam: Present: normal appearance - ENT ENT exam: Present: mucous membranes moist - Respiratory Respiratory exam: Present: normal lung sounds bilaterally. Absent: respiratory distress, wheezes, rales, rhonchi, stridor, chest wall tenderness, accessory muscle use, decreased breath sounds, prolonged expiratory - Cardiovascular Cardiovascular Exam: Present: regular rate, normal rhythm, normal heart sounds. Absent: systolic murmur, diastolic murmur, rubs, gallop - Neurological Exam Neurological exam: Present: alert, oriented X3 - Psychiatric Psychiatric exam: Present: normal affect, normal mood - Skin Skin exam: Present: warm, dry, intact ED Course Vital Signs 09/18/20 09/18/20 14:26 20:08 Temperature 98 F Pulse Rate 80 96 H Respiratory 20 17 Rate Blood Pressure 138/90 O2 Sat by Pulse 100 99 Oximetry ED Medical Decision Making - Lab Data Result diagrams: 09/18/20 15:03 09/18/20 15:03 Lab Results 09/18/20 09/18/20 09/18/20 Range/Units 15:03 15:03 18:28 WBC 6.7 (4.5-11.0) K/mm3 RBC 4.89 (3.65-5.03) M/mm3 Hgb 13.7 (10.1-14.3) gm/dl Hct 40.4 (30.3-42.9) % MCV 83 (79-97) fl MCH 28 (28-32) pg MCHC 34 (30-34) % RDW 13.5 (13.2-15.2) % Plt Count 231 (140-440) K/mm3 Lymph % (Auto) 29.0 (13.4-35.0) % Gilliam % (Auto) 5.7 (0.0-7.3) % Eos % (Auto) 0.5 (0.0-4.3) % Baso % (Auto) 0.5 (0.0-1.8) % Lymph # (Auto) 1.9 (1.2-5.4) K/mm3 Gilliam # (Auto) 0.4 (0.0-0.8) K/mm3 Eos # (Auto) 0.0 (0.0-0.4) K/mm3 Baso # (Auto) 0.0 (0.0-0.1) K/mm3 Seg Neutrophils % 64.3 (40.0-70.0) % Seg Neutrophils # 4.3 (1.8-7.7) K/mm3 Sodium 137 (137-145) mmol/L Potassium 3.9 (3.6-5.0) mmol/L Chloride 100.2 (98-107) mmol/L Carbon Dioxide 27 (22-30) mmol/L Anion Gap 14 mmol/L BUN 7 (7-17) mg/dL Creatinine 0.5 L (0.6-1.2) mg/dL Estimated GFR > 60 ml/min BUN/Creatinine Ratio 14 % Glucose 90 (65-100) mg/dL Calcium 8.7 (8.4-10.2) mg/dL Total Bilirubin 0.60 (0.1-1.2) mg/dL AST 20 (5-40) units/L ALT 19 (7-56) units/L Alkaline Phosphatase 81 (35-129) units/L Troponin T < 0.010 < 0.010 (0.00-0.029) ng/mL Total Protein 7.6 (6.3-8.2) g/dL Albumin 3.9 (3.9-5) g/dL Albumin/Globulin Ratio 1.1 % Vital Signs 09/18/20 09/18/20 14:26 20:08 Temperature 98 F Pulse Rate 80 96 H Respiratory 20 17 Rate Blood Pressure 138/90 O2 Sat by Pulse 100 99 Oximetry - EKG Data EKG shows normal: sinus rhythm, axis, intervals, QRS complexes, ST-T waves Rate: normal - EKG Data 09/18/20 19:45 1850 Repeat EKG with no change Normal sinus rhythm Rate is 77 bpm Normal axis Normal intervals No ST-T changes - Radiology Data Radiology results: report reviewed Ordering Physician: ED MD JIM Date of Service: 09/18/20 Procedure(s): XR chest routine 2V Accession Number(s): [id number] cc: ED MD JIM Fluoro Time In Minutes: CHEST 2 VIEWS INDICATION / CLINICAL INFORMATION: chest pain. COMPARISON: 06/27/18 FINDINGS: SUPPORT DEVICES: None. HEART / MEDIASTINUM: No significant abnormality. LUNGS / PLEURA: No significant pulmonary or pleural abnormality. No pneumothorax. ADDITIONAL FINDINGS: No significant additional findings. IMPRESSION: 1. No acute findings. Signer Name: Washington Johnston MD Signed: 09/18/2020 3:19 PM Workstation Name: [id number] Transcribed By: DT Dictated By: Luis Johnston MD Electronically Authenticated By: Luis Johnston MD Signed Date/Time: 09/18/201518 DD/ 18 TD/TT: - Medical Decision Making Patient is a 30-year-old female presents emergency room with complaints of dizziness and lightheadedness that occurred today. She states that she went to her primary care doctor and was advised her blood pressure was 179/100. She states that she has been out of her lisinopril for a week. Patient states that she was also having substernal chest pain described as intermittent sharp pain. She states that she has had been under a lot of stress and has been working a lot and that stress gives her anxiety. She states that she just needs another day off work and is requesting an extra day off work. She denies any shortness of breath, hemoptysis, fever, vomiting, diarrhea, leg swelling. She has a past medical history of asthma and hypertension. She states her last menstrual cycle was the end of last month. She states that she does vape but denies any cigarette use. she states she is on low dose lisinopril. No abnormality on physical examination as documented in chart. Labs are normal. Troponin is negative x2. EKG is within normal limits x2. Chest x-ray with no acute process. Heart score is 2, low risk for cardiac event. PERC negative for PE, PE unlikely. Patient is appropriate for outpatient cardiology follow-up, discussed the importance of follow-up, discussed return precautions. Patient is requesting a refill of her blood pressure medication. Advised patient Please take medication as prescribed. Eat a low-sodium diet. Incorporate 30 to 60 minutes of daily exercise. Increase your water intake. Follow-up with your primary care doctor. Follow-up with a power technician. Return to emergency room for new or symptoms. Critical care attestation.: If time is entered above; I have spent that time in minutes in the direct care of this critically ill patient, excluding procedure time. ED Disposition Clinical Impression: Chest pain Qualifiers: Chest pain type: unspecified Qualified Code(s): R07.9 - Chest pain, unspecified Disposition: - TO HOME OR SELFCARE Is pt being admited?: No Does the pt Need Aspirin: Yes (given) Condition: Stable Instructions: Nonspecific Chest Pain, Adult Additional Instructions: Please take medication as prescribed. Eat a low-sodium diet. Incorporate 30 to 60 minutes of daily exercise. Increase your water intake. Follow-up with your primary care doctor. Follow-up with a power technician. Return to emergency room for new or symptoms. Prescriptions: Lisinopril [Zestril TAB] 2.5 mg PO QDAY #30 tab Referrals: JARVIS MIR MD [Staff Physician] - 2-3 Days your, primary care doctor [Other] - 2-3 Days Forms: Work/School Release Form(ED) Time of Disposition: 19:46 Print Language: CZECH Heart Score - HEART Score History: Moderately suspicious EKG: Normal Age: < 45 Risk factors: 1-2 risk factors Troponin: < normal limit HEART Score: 2 - EKG Read Time Time EKG Completed: 14:41 EKG Read Time: 14:41 HEART Score - HEART Score History: Moderately suspicious EKG: Normal Age: < 45 Risk factors: 1-2 risk factors Troponin: Troponin T < 0.010 ng/mL (0.00-0.029) 09/18/20 18:28 Troponin: < normal limit HEART Score: 2
--- NOTE | 2020-09-20 11:49 | Electrocardiograph Report ---
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
--- NOTE | 2020-09-20 11:52 | Electrocardiograph Report ---
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
== END 2020-09-18 20:08 | disposition home or self-care (01) ==
LOC: ED 13:31
DX: R07.89 Other chest pain (principal); K21.9 Gastro-esophageal reflux disease without esophagitis; G43.909 Migraine, unspecified, not intractable, without status migrainosus; J45.909 Unspecified asthma, uncomplicated; F17.200 Nicotine dependence, unspecified, uncomplicated; Z79.1 Long term (current) use of non-steroidal anti-inflammatories (NSAID); Z79.899 Other long term (current) drug therapy; Z88.8 Allergy status to other drugs, medicaments and biological substances
CPT/HCPCS: 36415; 71046; 80053; 84484; 85025; 93005

== ENCOUNTER 2020-11-03 14:40 | Emergency (ER) | payer MEDICAID ==
[2020-11-03 15:11] VITALS: BP 156/74
[2020-11-03] MEDS ORDERED: IPRATROPIUM/ALBUTEROL SULFATE 3 ML AMPUL.NEB IH ONE (16:16)
[2020-11-03] MEDS ORDERED: ONDANSETRON 4 MG ODT TAB PO ONE (16:16)
[2020-11-03] MEDS ORDERED: AZITHROMYCIN 250 MG TAB PO ONE (16:16)
[2020-11-03] MEDS ORDERED: predniSONE 20 MG TAB PO ONE (16:16)
--- NOTE | 2020-11-03 16:25 | Emergency Department Report ---
- General Chief Complaint: Dyspnea/Respdistress Stated Complaint: RT SHOULDER PAIN/SOB/CH Time Seen by Provider: 11/03/20 16:11 Source: patient Mode of arrival: Ambulatory Limitations: No Limitations - History of Present Illness Initial Comments: Chief complaint: Shortness of breath HPI: This is a 30-year-old female with history of BMI 50, nicotine dependence, GERD migraine childhood asthma who presents with cough wheezing shortness of breath since yesterday. No sick contacts. Patient does vape. 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 No official diagnosis of COVID-19. She felt that she had the symptoms of COVID-19 infection early 2018 without confirmatory test. She denies fever, body aches, abdominal pain, chest pain, headache. She denies loss of taste or smell. She had childhood asthma. She does have postnasal drip and nasal congestion. She self treated at home with DayQuil. She is concerned that she may be dehydrated due to nausea vomiting. She denies diarrhea. MD Complaint: cough, rhinorrhea, nasal congestion, other (Shortness of breath) -: Gradual, days(s) (1 day) Severity: mild Consistency: constant Improves With: nothing Worsens With: nothing Context: other (Patent vapes) - Related Data Home Medications Medication Instructions Recorded Confirmed Last Taken OXcarbazepine [Trileptal] 300 mg PO BID 06/25/18 06/27/18 06/30/18 Prochlorperazine Maleate 5 mg PO DAILY 07/01/18 07/01/18 06/30/18 [Compazine] traZODone [Desyrel] 200 mg PO BID 07/01/18 07/01/18 06/30/18 Previous Rx's Medication Instructions Recorded Last Taken Type traMADoL [Ultram 50 MG tab] 50 mg PO Q6H PRN #12 tablet 06/28/18 06/30/18 Rx Oxycodone HCl [oxyCODONE TAB] 10 mg PO Q6H PRN #30 tablet 07/01/18 Unknown Rx Acetaminophen/Codeine [Tylenol 1 tab PO Q6H PRN #12 tab 06/19/19 Unknown Rx /Codeine # 3 tab] Cyclobenzaprine [Flexeril] 10 mg PO Q8H PRN #21 tablet 06/19/19 Unknown Rx Ibuprofen [Motrin] 800 mg PO Q8HR PRN #30 tablet 06/19/19 Unknown Rx Lisinopril [Zestril TAB] 2.5 mg PO QDAY #30 tab 09/18/20 Unknown Rx Albuterol Mdi (or & Nicu Only) 2 puff IH QID PRN #8.5 gram 11/03/20 Unknown Rx [ProAir HFA Inhaler] Azithromycin [Zithromax TAB] 250 mg PO QDAY 4 Days #4 tablet 11/03/20 Unknown Rx Cetirizine HCl [All Day Allergy 10 mg PO DAILY 30 Days #30 capsule 11/03/20 Unknown Rx Relief] Prednisone [predniSONE 10 mg 10 mg PO .TAPER #1 tab.ds.pk 11/03/20 Unknown Rx (6-Day Pack, 21 Tabs)] Allergies Allergy/AdvReac Type Severity Reaction Status Date / Time terfenadine [From Seldane] Allergy Rash Verified 09/18/20 14:29 ED Review of Systems ROS: Stated complaint: RT SHOULDER PAIN/SOB/CH Other details as noted in HPI Comment: All other systems reviewed and negative Constitutional: denies: fever, malaise Respiratory: cough, shortness of breath, wheezing Cardiovascular: denies: chest pain Gastrointestinal: denies: abdominal pain Neurological: denies: headache ED Past Medical Hx - Past Medical History Previous Medical History?: Yes Hx Hypertension: No Hx Congestive Heart Failure: No Hx Diabetes: No Hx Deep Vein Thrombosis: No Hx GERD: Yes Hx Renal Disease: No Hx Sickle Cell Disease: No Hx Headaches / Migraines: Yes (MIGRAINES) Hx Seizures: No 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) Hx COPD: No Hx HIV: No - Surgical History Past Surgical History?: Yes Additional Surgical History: GB - Social History Smoking Status: Current Some Day Smoker Substance Use Type: None - Medications Home Medications: Home Medications Medication Instructions Recorded Confirmed Last Taken Type OXcarbazepine [Trileptal] 300 mg PO BID 06/25/18 06/27/18 06/30/18 History traMADoL [Ultram 50 MG tab] 50 mg PO Q6H PRN #12 tablet 06/28/18 07/01/18 06/30/18 Rx Oxycodone HCl [oxyCODONE TAB] 10 mg PO Q6H PRN #30 tablet 07/01/18 Unknown Rx Prochlorperazine Maleate 5 mg PO DAILY 07/01/18 07/01/18 06/30/18 History [Compazine] traZODone [Desyrel] 200 mg PO BID 07/01/18 07/01/18 06/30/18 History Acetaminophen/Codeine [Tylenol 1 tab PO Q6H PRN #12 tab 06/19/19 Unknown Rx /Codeine # 3 tab] Cyclobenzaprine [Flexeril] 10 mg PO Q8H PRN #21 tablet 06/19/19 Unknown Rx Ibuprofen [Motrin] 800 mg PO Q8HR PRN #30 tablet 06/19/19 Unknown Rx Lisinopril [Zestril TAB] 2.5 mg PO QDAY #30 tab 09/18/20 Unknown Rx Albuterol Mdi (or & Nicu Only) 2 puff IH QID PRN #8.5 gram 11/03/20 Unknown Rx [ProAir HFA Inhaler] Azithromycin [Zithromax TAB] 250 mg PO QDAY 4 Days #4 tablet 11/03/20 Unknown Rx Cetirizine HCl [All Day Allergy 10 mg PO DAILY 30 Days #30 capsule 11/03/20 Unknown Rx Relief] Prednisone [predniSONE 10 mg 10 mg PO .TAPER #1 tab.ds.pk 11/03/20 Unknown Rx (6-Day Pack, 21 Tabs)] ED Physical Exam - General Limitations: No Limitations General appearance: alert, in no apparent distress, other (Speaking for sentences, no respiratory distress, frequent cough) - Head Head exam: Present: atraumatic, normocephalic - Eye Eye exam: Present: normal appearance - ENT ENT exam: Present: mucous membranes moist - Neck Neck exam: Present: normal inspection, full ROM - Respiratory Respiratory exam: Present: normal lung sounds bilaterally. Absent: respiratory distress, wheezes, rales, rhonchi, chest wall tenderness, accessory muscle use, decreased breath sounds, prolonged expiratory - Cardiovascular Cardiovascular Exam: Present: regular rate, normal rhythm, normal heart sounds. Absent: systolic murmur, diastolic murmur, rubs, gallop - GI/Abdominal GI/Abdominal exam: Present: soft, normal bowel sounds. Absent: distended, tenderness, guarding, rebound - Extremities Exam Extremities exam: Present: normal inspection - Neurological Exam Neurological exam: Present: alert, oriented X3 - Psychiatric Psychiatric exam: Present: normal affect, normal mood - Skin Skin exam: Present: warm, dry, intact, normal color. Absent: rash ED Course Vital Signs 11/03/20 15:09 Temperature 98.1 F Pulse Rate 91 H Respiratory 15 Rate Blood Pressure 156/74 O2 Sat by Pulse 98 Oximetry ED Medical Decision Making - Medical Decision Making Acute bronchitis: Due to nicotine dependence and vaping, antibiotics are indicated. Patient prescribed azithromycin albuterol MDI and prednisone also prescribed Zofran for nausea vomiting. Referred to her primary care physician. Also prescribed loratadine. I recommended COVID-19 testing. Critical care attestation.: If time is entered above; I have spent that time in minutes in the direct care of this critically ill patient, excluding procedure time. ED Disposition Clinical Impression: Acute bronchitis, Allergic rhinitis Disposition: - TO HOME OR SELFCARE Is pt being admited?: No Does the pt Need Aspirin: No Condition: Stable Instructions: Acute Bronchitis (ED), Acute Bronchitis, Adult, [id number], Allergic Rhinitis, Adult, Smle-os-Xlar Prescriptions: Cetirizine HCl [All Day Allergy Relief] 10 mg PO DAILY 30 Days #30 capsule Prednisone [predniSONE 10 mg (6-Day Pack, 21 Tabs)] 10 mg PO .TAPER #1 tab.ds.pk Albuterol Mdi (or & Nicu Only) [ProAir HFA Inhaler] 2 puff IH QID PRN #8.5 gram PRN Reason: Shortness Of Breath Azithromycin [Zithromax TAB] 250 mg PO QDAY 4 Days #4 tablet Referrals: PRIMARY CARE, [Referring] - as needed Forms: Work/School Release Form(ED)
== END 2020-11-03 16:47 | disposition home or self-care (01) ==
LOC: ED 14:40
DX: J20.9 Acute bronchitis, unspecified (principal); J30.9 Allergic rhinitis, unspecified; K21.9 Gastro-esophageal reflux disease without esophagitis; G43.909 Migraine, unspecified, not intractable, without status migrainosus; F17.200 Nicotine dependence, unspecified, uncomplicated; Z98.890 Other specified postprocedural states; Z79.1 Long term (current) use of non-steroidal anti-inflammatories (NSAID); Z79.2 Long term (current) use of antibiotics; Z79.899 Other long term (current) drug therapy; Z88.8 Allergy status to other drugs, medicaments and biological substances
CPT/HCPCS: 94640; 99282; J7512; 94644; Q0162

== ENCOUNTER 2021-01-25 11:27 | Emergency (ER) | payer MEDICAID ==
--- NOTE | 2021-01-25 12:36 | Emergency Department Report ---
ED Extremity Problem HPI - General Chief complaint: Pain General Stated complaint: RT LEG/ARM CRAMPS/NUMBNESS Time Seen by Provider: 01/25/21 12:17 Source: patient Mode of arrival: Ambulatory Limitations: No Limitations - History of Present Illness Initial comments: 31-year-old female with a past medical history of morbid obesity, chronic low back pain, prediabetes hypertension neuropathy presents to the ER today with right calf cramp. Patient states that she typically have pain to both of her legs as well as her neuropathy but around 2 AM this morning she started with significant pain to her right calf. She states that after the pain started she did not start having tingling or numbness to her entire right leg. She reports increased pain with weightbearing. She reports swelling to the right calf area and she states that it did appear red. Patient states that she was concerned that her pain could be related to blood clot. She reports no injury or strenuous activity. She denies any prior history of DVT or PE in the past. She admits that she did have tonsil surgery about 2 to 3 weeks ago for which she stayed in the hospital for about 3 days. She reports no chest pain, shortness of breath, worsening back pain, bowel or bladder incontinence, or any additional symptoms at this time. MD Complaint: extremity pain Severity scale (0 -10): 0 - Related Data Home Medications Medication Instructions Recorded Confirmed Last Taken OXcarbazepine [Trileptal] 300 mg PO BID 06/25/18 06/27/18 06/30/18 Prochlorperazine Maleate 5 mg PO DAILY 07/01/18 07/01/18 06/30/18 [Compazine] traZODone [Desyrel] 200 mg PO BID 07/01/18 07/01/18 06/30/18 Previous Rx's Medication Instructions Recorded Last Taken Type traMADoL [Ultram 50 MG tab] 50 mg PO Q6H PRN #12 tablet 06/28/18 06/30/18 Rx Oxycodone HCl [oxyCODONE TAB] 10 mg PO Q6H PRN #30 tablet 07/01/18 Unknown Rx Ibuprofen [Motrin] 800 mg PO Q8HR PRN #30 tablet 06/19/19 Unknown Rx Lisinopril [Zestril TAB] 2.5 mg PO QDAY #30 tab 09/18/20 Unknown Rx Albuterol Mdi (or & Nicu Only) 2 puff IH QID PRN #8.5 gram 11/03/20 Unknown Rx [ProAir HFA Inhaler] Azithromycin [Zithromax TAB] 250 mg PO QDAY 4 Days #4 tablet 11/03/20 Unknown Rx Cetirizine HCl [All Day Allergy 10 mg PO DAILY 30 Days #30 capsule 11/03/20 Unknown Rx Relief] Prednisone [predniSONE 10 mg 10 mg PO .TAPER #1 tab.ds.pk 11/03/20 Unknown Rx (6-Day Pack, 21 Tabs)] Acetaminophen/Codeine [Tylenol 1 tab PO Q6H PRN #12 tab 01/25/21 Unknown Rx /Codeine # 3 tab] methOCARBAMOL [Robaxin TAB] 500 mg PO Q8H PRN #20 tablet 01/25/21 Unknown Rx Allergies Allergy/AdvReac Type Severity Reaction Status Date / Time terfenadine [From Seldane] Allergy Rash Verified 09/18/20 14:29 ED Review of Systems ROS: Stated complaint: RT LEG/ARM CRAMPS/NUMBNESS Other details as noted in HPI ED Past Medical Hx - Past Medical History Hx Hypertension: No Hx Congestive Heart Failure: No Hx Diabetes: No Hx Deep Vein Thrombosis: No Hx GERD: Yes Hx Renal Disease: No Hx Sickle Cell Disease: No Hx Headaches / Migraines: Yes (MIGRAINES) Hx Seizures: No 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) Hx COPD: No Hx HIV: No - Surgical History Additional Surgical History: GB - Social History Smoking Status: Current Some Day Smoker Substance Use Type: None - Medications Home Medications: Home Medications Medication Instructions Recorded Confirmed Last Taken Type OXcarbazepine [Trileptal] 300 mg PO BID 06/25/18 06/27/18 06/30/18 History traMADoL [Ultram 50 MG tab] 50 mg PO Q6H PRN #12 tablet 06/28/18 07/01/18 06/30/18 Rx Oxycodone HCl [oxyCODONE TAB] 10 mg PO Q6H PRN #30 tablet 07/01/18 Unknown Rx Prochlorperazine Maleate 5 mg PO DAILY 07/01/18 07/01/18 06/30/18 History [Compazine] traZODone [Desyrel] 200 mg PO BID 07/01/18 07/01/18 06/30/18 History Ibuprofen [Motrin] 800 mg PO Q8HR PRN #30 tablet 06/19/19 Unknown Rx Lisinopril [Zestril TAB] 2.5 mg PO QDAY #30 tab 09/18/20 Unknown Rx Albuterol Mdi (or & Nicu Only) 2 puff IH QID PRN #8.5 gram 11/03/20 Unknown Rx [ProAir HFA Inhaler] Azithromycin [Zithromax TAB] 250 mg PO QDAY 4 Days #4 tablet 11/03/20 Unknown Rx Cetirizine HCl [All Day Allergy 10 mg PO DAILY 30 Days #30 capsule 11/03/20 Unknown Rx Relief] Prednisone [predniSONE 10 mg 10 mg PO .TAPER #1 tab.ds.pk 11/03/20 Unknown Rx (6-Day Pack, 21 Tabs)] Acetaminophen/Codeine [Tylenol 1 tab PO Q6H PRN #12 tab 01/25/21 Unknown Rx /Codeine # 3 tab] methOCARBAMOL [Robaxin TAB] 500 mg PO Q8H PRN #20 tablet 01/25/21 Unknown Rx ED Physical Exam - General Limitations: No Limitations ED Course Vital Signs 01/25/21 01/25/21 12:07 15:13 Temperature 97.8 F Pulse Rate 88 85 Respiratory 18 18 Rate Blood Pressure 134/76 144/84 [Left] O2 Sat by Pulse 97 99 Oximetry ED Medical Decision Making - Radiology Data Radiology results: report reviewed Patient: VERONA MEDELLIN MR#: [id number] : 1990 Acct:[id number] Age/Sex: 31 / F ADM Date: 01/25/21 Loc: ED Attending Dr: Ordering Physician: SCHUYLER WASHINGTON Date of Service: 01/25/21 Procedure(s): VL venous duplex LE RT Accession Number(s): [id number] cc: SCHUYLER WASHINGTON DUPLEX DOPPLER LOWER EXTREMITY VEINS, RIGHT INDICATION / CLINICAL INFORMATION: right calf pain. TECHNIQUE: Duplex doppler imaging was performed through the veins of the right lower extremity using venous compression and other maneuvers. COMPARISON: None available. FINDINGS: RIGHT COMMON FEMORAL VEIN: Negative. RIGHT FEMORAL VEIN: Negative. RIGHT POPLITEAL VEIN: Negative. RIGHT CALF VEINS: Negative. ADDITIONAL FINDINGS: None. IMPRESSION: 1. No sonographic evidence for DVT in the right lower extremity. Signer Name: Wu Stacy MD Signed: 01/25/2021 2:40 PM Workstation Name: [email or web address] Transcribed By: CRIS Dictated By: Wu Stacy MD Electronically Authenticated By: Wu Stacy MD Signed Date/Time: 01/25/21 1440 DD/ 1439 TD/TT: - Medical Decision Making Venous doppler negative for DVT. There is no signs of cellulitis, acute arterial occlusion, CHF, fracture or any other emergent conditions at this time. I suspect patient pain could be related to muscle spasm/neuropathy but also radiculopathy is a consideration. Patient is also morbidly obese and that likely can be contributing to her pain. Discussed US results with patient. Discussed suspected dx and treatment plan with patient. Recommend follow up with PCP or orthospine specialist for MRI of her spine. Pt expressed understanding and agreed with plan. Pt was stable at time of discharge. Critical care attestation.: If time is entered above; I have spent that time in minutes in the direct care of this critically ill patient, excluding procedure time. ED Disposition Clinical Impression: Right calf pain, Neuropathy, leg Disposition: 01 HOME / SELF CARE / HOMELESS Is pt being admited?: No Does the pt Need Aspirin: No Condition: Stable Instructions: Pinched Nerve, Muscle Cramps and Spasms, Neuropathic Pain Additional Instructions: I recommend that you take the medications as prescribed to help with your pain. I do recommend that you follow-up with your primary care doctor or follow-up orthospine specialist for an MRI of the lumbar spine. As the pain in your legs could also be related to sciatica/lumbar radiculopathy from a herniated disc and pinched nerve. Return to the ER if your symptoms changes or worsens in any way. Prescriptions: methOCARBAMOL [Robaxin TAB] 500 mg PO Q8H PRN #20 tablet PRN Reason: muscle cramps Acetaminophen/Codeine [Tylenol /Codeine # 3 tab] 1 tab PO Q6H PRN #12 tab PRN Reason: Pain , Severe (7-10) Referrals: PRIMARY CARE, [Primary Care Provider] - 3-5 Days Forms: Work/School Release Form(ED) Time of Disposition: 15:05
--- NOTE | 2021-01-25 14:44 | Vascular Lab Report ---
DUPLEX DOPPLER LOWER EXTREMITY VEINS, RIGHT INDICATION / CLINICAL INFORMATION: right calf pain. TECHNIQUE: Duplex doppler imaging was performed through the veins of the right lower extremity using venous comp ression and other maneuvers. COMPARISON: None available. FINDINGS: RIGHT COMMON FEMORAL VEIN: Negative. RIGHT FEMORAL VEIN: Negative. RIGHT POPLITEAL VEIN: Negative. RIGHT CALF VEINS: Negative. ADDITIONAL FINDINGS: None. IMPRESSION: 1. No sonographic evidence for DVT in the right lower extremity. Signer Name: Wu Stacy MD Signed: 01/25/2021 2:40 PM Workstation Name: [employer]
[2021-01-25 15:15] VITALS: BP 144/84
[2021-01-25] MEDS ORDERED: ACETAMINOPHEN W/CODEINE 300-30 MG TAB PO ONE (15:16)
== END 2021-01-25 15:41 | disposition home or self-care (01) ==
LOC: ED 11:27
DX: G62.9 Polyneuropathy, unspecified (principal); M79.661 Pain in right lower leg; K21.9 Gastro-esophageal reflux disease without esophagitis; J45.909 Unspecified asthma, uncomplicated; E66.01 Morbid (severe) obesity due to excess calories
CPT/HCPCS: 99283

== ENCOUNTER 2021-03-02 12:00 | Emergency (ER) | payer MEDICAID ==
[2021-03-02 12:31] VITALS: BP 124/62
--- NOTE | 2021-03-02 13:11 | Emergency Department Report ---
ED Lower Extremity HPI - General Chief Complaint: Extremity Injury, Lower Stated Complaint: LFT SHOULDER PAIN,RT FOOT PAIN Time Seen by Provider: 03/02/21 12:38 Source: patient Mode of arrival: Ambulatory Limitations: No Limitations - History of Present Illness Initial Comments: 31-year-old morbid obese female presents to the emergency room co mplaining of right foot pain for 3 days. Patient states the pain is worse when she bears weight. Patient states she is suffers from neuropathy in the same leg. Patient reports she tried to make an appointment with her primary care provider Dr. Ruben Scott he has nothing available for 2-1/2 weeks. Patient states that her job is requiring for her to have a work excuse. Patient states that she is currently on tramadol which she reports does not help much. She reports that the pain is on the bottom of her foot right at the hindfoot. Patient denies any direct injury. Patient reports that her job requires her to walk constantly. MD Complaint: foot injury Onset/Timin -: days(s) Injury: Foot: Right Severity scale (0 -10): 8 Improves With: nothing Worsens With: weight bearing Associated Symptoms: able to partially bear weight - Related Data Home Medications Medication Instructions Recorded Confirmed Last Taken OXcarbazepine [Trileptal] 300 mg PO BID 06/25/18 06/27/18 06/30/18 Prochlorperazine Maleate 5 mg PO DAILY 07/01/18 07/01/18 06/30/18 [Compazine] traZODone [Desyrel] 200 mg PO BID 07/01/18 07/01/18 06/30/18 Previous Rx's Medication Instructions Recorded Last Taken Type traMADoL [Ultram 50 MG tab] 50 mg PO Q6H PRN #12 tablet 06/28/18 06/30/18 Rx Oxycodone HCl [oxyCODONE TAB] 10 mg PO Q6H PRN #30 tablet 07/01/18 Unknown Rx Ibuprofen [Motrin] 800 mg PO Q8HR PRN #30 tablet 06/19/19 Unknown Rx Lisinopril [Zestril TAB] 2.5 mg PO QDAY #30 tab 09/18/20 Unknown Rx Albuterol Mdi (or & Nicu Only) 2 puff IH QID PRN #8.5 gram 11/03/20 Unknown Rx [ProAir HFA Inhaler] Azithromycin [Zithromax TAB] 250 mg PO QDAY 4 Days #4 tablet 11/03/20 Unknown Rx Cetirizine HCl [All Day Allergy 10 mg PO DAILY 30 Days #30 capsule 11/03/20 Unknown Rx Relief] Prednisone [predniSONE 10 mg 10 mg PO .TAPER #1 tab.ds.pk 11/03/20 Unknown Rx (6-Day Pack, 21 Tabs)] Acetaminophen/Codeine [Tylenol 1 tab PO Q6H PRN #12 tab 01/25/21 Unknown Rx /Codeine # 3 tab] methOCARBAMOL [Robaxin TAB] 500 mg PO Q8H PRN #20 tablet 01/25/21 Unknown Rx Naproxen 500 mg PO Q12H PRN #20 tablet 03/02/21 Unknown Rx Allergies Allergy/AdvReac Type Severity Reaction Status Date / Time terfenadine [From Seldane] Allergy Rash Verified 09/18/20 14:29 ED Review of Systems ROS: Stated complaint: LFT SHOULDER PAIN,RT FOOT PAIN Other details as noted in HPI Comment: All other systems reviewed and negative ED Past Medical Hx - Past Medical History Previous Medical History?: Yes Hx Hypertension: No Hx Congestive Heart Failure: No Hx Diabetes: No Hx Deep Vein Thrombosis: No Hx GERD: Yes Hx Renal Disease: No Hx Sickle Cell Disease: No Hx Headaches / Migraines: Yes (MIGRAINES) Hx Seizures: No 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) Hx COPD: No Hx HIV: No - Surgical History Past Surgical History?: Yes Additional Surgical History: GB - Social History Smoking Status: Current Every Day Smoker Substance Use Type: Alcohol, Prescribed - Medications Home Medications: Home Medications Medication Instructions Recorded Confirmed Last Taken Type OXcarbazepine [Trileptal] 300 mg PO BID 06/25/18 06/27/18 06/30/18 History traMADoL [Ultram 50 MG tab] 50 mg PO Q6H PRN #12 tablet 06/28/18 07/01/18 06/30/18 Rx Oxycodone HCl [oxyCODONE TAB] 10 mg PO Q6H PRN #30 tablet 07/01/18 Unknown Rx Prochlorperazine Maleate 5 mg PO DAILY 07/01/18 07/01/18 06/30/18 History [Compazine] traZODone [Desyrel] 200 mg PO BID 07/01/18 07/01/18 06/30/18 History Ibuprofen [Motrin] 800 mg PO Q8HR PRN #30 tablet 06/19/19 Unknown Rx Lisinopril [Zestril TAB] 2.5 mg PO QDAY #30 tab 09/18/20 Unknown Rx Albuterol Mdi (or & Nicu Only) 2 puff IH QID PRN #8.5 gram 11/03/20 Unknown Rx [ProAir HFA Inhaler] Azithromycin [Zithromax TAB] 250 mg PO QDAY 4 Days #4 tablet 11/03/20 Unknown Rx Cetirizine HCl [All Day Allergy 10 mg PO DAILY 30 Days #30 capsule 11/03/20 Unknown Rx Relief] Prednisone [predniSONE 10 mg 10 mg PO .TAPER #1 tab.ds.pk 11/03/20 Unknown Rx (6-Day Pack, 21 Tabs)] Acetaminophen/Codeine [Tylenol 1 tab PO Q6H PRN #12 tab 01/25/21 Unknown Rx /Codeine # 3 tab] methOCARBAMOL [Robaxin TAB] 500 mg PO Q8H PRN #20 tablet 01/25/21 Unknown Rx Naproxen 500 mg PO Q12H PRN #20 tablet 03/02/21 Unknown Rx ED Physical Exam - General Limitations: No Limitations General appearance: alert, in no apparent distress - Head Head exam: Present: atraumatic, normocephalic - Eye Eye exam: Present: normal appearance - ENT ENT exam: Present: mucous membranes moist - Neck Neck exam: Present: normal inspection - Respiratory Respiratory exam: Present: normal lung sounds bilaterally. Absent: respiratory distress - Cardiovascular Cardiovascular Exam: Present: regular rate, normal rhythm. Absent: systolic murmur, diastolic murmur, rubs, gallop - GI/Abdominal GI/Abdominal exam: Present: soft, normal bowel sounds - Extremities Exam Extremities exam: Present: normal inspection - Expanded Lower Extremity Exam Right Foot/Toe exam: Present: tenderness, swelling Neuro vascular tendon exam: Present: no vascular compromise - Back Exam Back exam: Present: normal inspection - Neurological Exam Neurological exam: Present: alert, oriented X3 - Psychiatric Psychiatric exam: Present: normal affect, normal mood - Skin Skin exam: Present: warm, dry, intact, normal color. Absent: rash ED Course Vital Signs 03/02/21 12:29 Temperature 97.7 F Pulse Rate 82 Respiratory 18 Rate Blood Pressure 124/62 O2 Sat by Pulse 100 Oximetry ED Lower Extremity MDM - Medical Decision Making 31-year-old morbid obese female presents to the emergency room complaining of right foot pain for 3 days. Patient states the pain is worse when she bears weight. Patient states she is suffers from neuropathy in the same leg. Patient reports she tried to make an appointment with her primary care provider Dr. Ruben Scott he has nothing available for 2-1/2 weeks. Patient states that her job is requiring for her to have a work excuse. Patient states that she is currently on tramadol which she reports does not help much. She reports that the pain is on the bottom of her foot right at the hindfoot. Patient denies any direct injury. Patient reports that her job requires her to walk constantly. Crutches and referral to podiatry. Critical care attestation.: If time is entered above; I have spent that time in minutes in the direct care of this critically ill patient, excluding procedure time. ED Disposition Clinical Impression: Plantar fasciitis of right foot, Left shoulder pain Disposition: 01 HOME / SELF CARE / HOMELESS Is pt being admited?: No Does the pt Need Aspirin: No Condition: Stable Instructions: Plantar Fasciitis Rehab-[facility] Prescriptions: Naproxen 500 mg PO Q12H PRN #20 tablet PRN Reason: Pain , Severe (7-10) Referrals: STEFFEN BRUNO DPM [Staff Physician] - 3-5 Days [facility] [Provider Group] - 3-5 Days SONAM MARTINEZ MD [Staff Physician] - 3-5 Days Forms: Work/School Release Form(ED) Time of Disposition: 13:15
== END 2021-03-02 14:25 | disposition home or self-care (01) ==
LOC: ED 12:00
DX: M72.2 Plantar fascial fibromatosis (principal); M25.512 Pain in left shoulder; K21.9 Gastro-esophageal reflux disease without esophagitis; G43.909 Migraine, unspecified, not intractable, without status migrainosus; J45.909 Unspecified asthma, uncomplicated; Z98.890 Other specified postprocedural states; F17.200 Nicotine dependence, unspecified, uncomplicated; Z88.8 Allergy status to other drugs, medicaments and biological substances
CPT/HCPCS: 99283

== ENCOUNTER 2021-04-21 15:59 | Emergency (ER) | payer MEDICAID ==
[2021-04-21 16:08] VITALS: BP 137/95
[2021-04-21] MEDS ORDERED: KETOROLAC 60 MG/2 ML INJ IM ONE (17:39)
[2021-04-21] MEDS ORDERED: ONDANSETRON 4 MG ODT TAB PO ONE ×2 (17:39→20:19)
[2021-04-21] MEDS ORDERED: BUTALB/ACETAMINOPHEN/CAFFEINE TAB PO ONE (17:39)
[2021-04-21 17:40] LABS: Basophils # (Auto) 0.1 K/mm3 (0.0-0.1); Basophils % (Auto) 0.9 % (0.0-1.8); Eosinophils # (Auto) 0.1 K/mm3 (0.0-0.4); Eosinophils % (Auto) 0.6 % (0.0-4.3); Hematocrit 39.6 % (30.3-42.9); Hemoglobin 13.1 gm/dl (10.1-14.3); Lymphocytes # (Auto) 2.6 K/mm3 (1.2-5.4); Lymphocytes % (Auto) 27.5 % (13.4-35.0); Mean Corpuscular HGB Conc 33 % (30-34); Mean Corpuscular Volume 81 fl (79-97); Monocytes # (Auto) 0.4 K/mm3 (0.0-0.8); Monocytes % (Auto) 4.1 % (0.0-7.3); Platelet Count 238 K/mm3 (140-440); Red Blood Count 4.88 M/mm3 (3.65-5.03)
--- NOTE | 2021-04-21 17:58 | Emergency Department Report ---
HPI - General Chief Complaint: Back Pain/Injury Time Seen by Provider: 04/21/21 17:04 - HPI HPI: 31-year-old obese female with a past medical history of borderline diabetes, migraines, hypertension, asthma, and previous cholecystectomy presents to the hospital with complaints of infectious symptoms since yesterday. Patient complains of a headache, intermittent vomiting, nausea, and bilateral lower back pain, cough, and chills. No documented fever. Mild shortness of breath reported. Patient is unvaccinated for Covid. She still has her sense of taste and smell. She complains of pain to bilateral upper abdomen. She states her headache is similar to her previous migraines and is left-sided. She typically takes Fioricet for her headache. She denies urinary symptoms including dysuria, hematuria, increased urinary frequency. Pain overall is described as 5/10 in intensity. Back pain and abdominal worse palpation and movement. 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 tonsillectomy - Social History Smoking Status: Current Every Day Smoker Substance Use Type: Alcohol, Prescribed - Medications Home Medications: Home Medications Medication Instructions Recorded Confirmed Last Taken Type OXcarbazepine [Trileptal] 300 mg PO BID 06/25/18 06/27/18 06/30/18 History traMADoL [Ultram 50 MG tab] 50 mg PO Q6H PRN #12 tablet 06/28/18 07/01/18 06/30/18 Rx Oxycodone HCl [oxyCODONE TAB] 10 mg PO Q6H PRN #30 tablet 07/01/18 Unknown Rx Prochlorperazine Maleate 5 mg PO DAILY 07/01/18 07/01/18 06/30/18 History [Compazine] traZODone [Desyrel] 200 mg PO BID 07/01/18 07/01/18 06/30/18 History Lisinopril [Zestril TAB] 2.5 mg PO QDAY #30 tab 09/18/20 Unknown Rx Albuterol Mdi (or & Nicu Only) 2 puff IH QID PRN #8.5 gram 11/03/20 Unknown Rx [ProAir HFA Inhaler] Azithromycin [Zithromax TAB] 250 mg PO QDAY 4 Days #4 tablet 11/03/20 Unknown Rx Cetirizine HCl [All Day Allergy 10 mg PO DAILY 30 Days #30 capsule 11/03/20 Unknown Rx Relief] Prednisone [predniSONE 10 mg 10 mg PO .TAPER #1 tab.ds.pk 11/03/20 Unknown Rx (6-Day Pack, 21 Tabs)] Acetaminophen/Codeine [Tylenol 1 tab PO Q6H PRN #12 tab 01/25/21 Unknown Rx /Codeine # 3 tab] methOCARBAMOL [Robaxin TAB] 500 mg PO Q8H PRN #20 tablet 01/25/21 Unknown Rx Naproxen 500 mg PO Q12H PRN #20 tablet 03/02/21 Unknown Rx Butalb/Acetamin/Caff 50-325-40 1 tab PO Q6HR PRN #20 tab 04/21/21 Unknown Rx [Fioricet 50-325-40] Ibuprofen [Motrin 800 MG tab] 800 mg PO Q8HR PRN #30 tablet 04/21/21 Unknown Rx cephALEXin [Keflex] 500 mg PO Q12HR #14 cap 04/21/21 Unknown Rx ED Review of Systems ROS: Stated complaint: BACK PAIN/CHILLS Other details as noted in HPI Comment: All other systems reviewed and negative Physical Exam - Physical Exam Vital Signs: Vital Signs 04/21/21 16:05 Temperature 98.1 F Pulse Rate 88 Respiratory 18 Rate Blood Pressure 137/95 [Right] O2 Sat by Pulse 100 Oximetry Physical Exam: General: No acute distress Head: Atraumatic Eyes: normal appearance ENT: Moist mucous membranes Neck: Normal appearance, no midline tenderness Chest: Clear to auscultation bilaterally CV: Regular rate and rhythm Abdomen: Soft, normal bowel sounds, mild tenderness to bilateral left and right upper quadrants without rebound or guarding Back: Normal inspection, 2 midline lumbar spine and bilateral paraspinal muscles worse with movement Extremity: Normal inspection, full range of motion Neuro: Alert O x 3, no facial asymmetry, speech clear, no gross motor sensory deficit Psych: Appropriate behavior Skin: No rash ED Course Vital Signs 04/21/21 16:05 Temperature 98.1 F Pulse Rate 88 Respiratory 18 Rate Blood Pressure 137/95 [Right] O2 Sat by Pulse 100 Oximetry ED Medical Decision Making - Lab Data Result diagrams: 04/21/21 17:20 04/21/21 17:20 Lab Results 04/21/21 04/21/21 04/21/21 Range/Units 17:20 17:20 17:20 WBC 9.3 (4.5-11.0) K/mm3 RBC 4.88 (3.65-5.03) M/mm3 Hgb 13.1 (10.1-14.3) gm/dl Hct 39.6 (30.3-42.9) % MCV 81 (79-97) fl MCH 27 L (28-32) pg MCHC 33 (30-34) % RDW 13.0 L (13.2-15.2) % Plt Count 238 (140-440) K/mm3 Lymph % (Auto) 27.5 (13.4-35.0) % [place] % (Auto) 4.1 (0.0-7.3) % Eos % (Auto) 0.6 (0.0-4.3) % Baso % (Auto) 0.9 (0.0-1.8) % Lymph # (Auto) 2.6 (1.2-5.4) K/mm3 [place] # (Auto) 0.4 (0.0-0.8) K/mm3 Eos # (Auto) 0.1 (0.0-0.4) K/mm3 Baso # (Auto) 0.1 (0.0-0.1) K/mm3 Seg Neutrophils % 66.9 (40.0-70.0) % Seg Neutrophils # 6.2 (1.8-7.7) K/mm3 Sodium 138 (137-145) mmol/L Potassium 3.8 (3.6-5.0) mmol/L Chloride 101.1 (98-107) mmol/L Carbon Dioxide 25 (22-30) mmol/L Anion Gap 16 mmol/L BUN 11 (7-17) mg/dL Creatinine 0.6 (0.6-1.2) mg/dL Estimated GFR > 60 ml/min BUN/Creatinine Ratio 18 % Glucose 137 H (65-100) mg/dL Calcium 9.4 (8.4-10.2) mg/dL Total Bilirubin 0.50 (0.1-1.2) mg/dL AST 12 (5-40) units/L ALT 15 (7-56) units/L Alkaline Phosphatase 89 (35-129) units/L Total Protein 7.8 (6.3-8.2) g/dL Albumin 4.1 (3.9-5) g/dL Albumin/Globulin Ratio 1.1 % Lipase 14 (13-60) units/L HCG, Qual Negative (Negative) Urine Color (Yellow) Urine Turbidity (Clear) Urine pH (5.0-7.0) Ur Specific [place] (1.003-1.030) Urine Protein (Negative) mg/dL Urine Glucose (UA) (Negative) mg/dL Urine Ketones (Negative) mg/dL Urine Blood (Negative) Urine Nitrite (Negative) Urine Bilirubin (Negative) Urine Urobilinogen (<2.0) mg/dL Ur Leukocyte Esterase (Negative) Urine WBC (Auto) (0.0-6.0) /HPF Urine RBC (Auto) (0.0-6.0) /HPF U Epithel Cells (Auto) (0-13.0) /HPF Urine Mucus /HPF 04/21/21 Range/Units Unknown WBC (4.5-11.0) K/mm3 RBC (3.65-5.03) M/mm3 Hgb (10.1-14.3) gm/dl Hct (30.3-42.9) % MCV (79-97) fl MCH (28-32) pg MCHC (30-34) % RDW (13.2-15.2) % Plt Count (140-440) K/mm3 Lymph % (Auto) (13.4-35.0) % [place] % (Auto) (0.0-7.3) % Eos % (Auto) (0.0-4.3) % Baso % (Auto) (0.0-1.8) % Lymph # (Auto) (1.2-5.4) K/mm3 [place] # (Auto) (0.0-0.8) K/mm3 Eos # (Auto) (0.0-0.4) K/mm3 Baso # (Auto) (0.0-0.1) K/mm3 Seg Neutrophils % (40.0-70.0) % Seg Neutrophils # (1.8-7.7) K/mm3 Sodium (137-145) mmol/L Potassium (3.6-5.0) mmol/L Chloride (98-107) mmol/L Carbon Dioxide (22-30) mmol/L Anion Gap mmol/L BUN (7-17) mg/dL Creatinine (0.6-1.2) mg/dL Estimated GFR ml/min BUN/Creatinine Ratio % Glucose (65-100) mg/dL Calcium (8.4-10.2) mg/dL Total Bilirubin (0.1-1.2) mg/dL AST (5-40) units/L ALT (7-56) units/L Alkaline Phosphatase (35-129) units/L Total Protein (6.3-8.2) g/dL Albumin (3.9-5) g/dL Albumin/Globulin Ratio % Lipase (13-60) units/L HCG, Qual (Negative) Urine Color Yellow (Yellow) Urine Turbidity Clear (Clear) Urine pH 5.0 (5.0-7.0) Ur Specific [place] 1.025 (1.003-1.030) Urine Protein <15 mg/dl (Negative) mg/dL Urine Glucose (UA) Neg (Negative) mg/dL Urine Ketones Neg (Negative) mg/dL Urine Blood Neg (Negative) Urine Nitrite Neg (Negative) Urine Bilirubin Neg (Negative) Urine Urobilinogen < 2.0 (<2.0) mg/dL Ur Leukocyte Esterase Tr (Negative) Urine WBC (Auto) 9.0 H (0.0-6.0) /HPF Urine RBC (Auto) 2.0 (0.0-6.0) /HPF U Epithel Cells (Auto) 5.0 (0-13.0) /HPF Urine Mucus Few /HPF - Radiology Data Radiology results: report reviewed CHEST 2 VIEWS INDICATION / CLINICAL INFORMATION: cough. COMPARISON: 09/18/2020 FINDINGS: SUPPORT DEVICES: None. HEART / MEDIASTINUM: No significant abnormality. LUNGS / PLEURA: No significant pulmonary or pleural abnormality. No pneumothorax. ADDITIONAL FINDINGS: No significant additional findings. IMPRESSION: 1. No acute findings. - Medical Decision Making 31-year-old female endorses infectious symptoms however, there are no signs of fever or leukocytosis here in the ED. Urine has mild elevation the BC count however, patient does not endorse urinary symptoms, have nitrites, or leukocytes or bacteria in the urine. Given back pain and reported chills she will be empirically treated with Macrobid. Patient also provided Fioricet for migraine headache symptoms. Work excuse provided and patient encouraged to take her Covid test. Chest x-ray unremarkable for pneumonia. Patient was treated with Toradol, Zofran, and Fioricet in the ED Critical Care Time: No Critical care attestation.: If time is entered above; I have spent that time in minutes in the direct care of this critically ill patient, excluding procedure time. ED Disposition Clinical Impression: Migraine headache, Vomiting, Back pain, Urine WBC increased Disposition: 01 HOME / SELF CARE / HOMELESS Is pt being admited?: No Condition: Stable Instructions: Migraine Headache, Vomiting, Adult, Acute Urinary Retention, Male, Urinary Tract Infection, Adult, [id number] Additional Instructions: Take the medication as prescribed. Follow-up with your doctor or doctor/clinic provided. Return if symptoms worsen as indicated by your discharge instructions. Prescriptions: Butalb/Acetamin/Caff 50-325-40 [Fioricet 50-325-40] 1 tab PO Q6HR PRN #20 tab PRN Reason: Headache cephALEXin [Keflex] 500 mg PO Q12HR #14 cap Ibuprofen [Motrin 800 MG tab] 800 mg PO Q8HR PRN #30 tablet PRN Reason: Pain , Severe (7-10) Referrals: PRIMARY CARE, [Primary Care Provider] - 3-5 Days Forms: Work/School Release Form(ED) Time of Disposition: 20:04
[2021-04-21 18:02] LABS: Alanine Aminotransferase 15 units/L (7-56); Albumin 4.1 g/dL (3.9-5); Blood Urea Nitrogen 11 mg/dL (7-17); Calcium 9.4 mg/dL (8.4-10.2); Hemolysis Index 5
[2021-04-21 18:03] LABS: BUN/Creatinine Ratio 18
--- NOTE | 2021-04-21 18:38 | XRay Report ---
CHEST 2 VIEWS INDICATION / CLINICAL INFORMATION: cough. COMPARISON: 09/18/2020 FINDINGS: SUPPORT DEVICES: None. HEART / MEDIASTINUM: No significant abnormality. LUNGS / PLEURA: No significant pulmonary or pleural abnormality. No pneumothorax. ADDITIONAL FINDINGS: No significant additional findings. IMPRESSION: 1. No acute findings. Signer Name: Tavares Mondragon MD Signed: 04/21/2021 6:33 PM Workstation Name: [id number]
[2021-04-21 19:07] LABS: Bilirubin,Urine NEG (Negative); Blood,Urine NEG (Negative); Color,Urine Yellow (Yellow); Mucus,Urine FEW /HPF; Protein,Urine <15 mg/dL mg/dL (Negative); Urobilinogen,Urine < 2.0 mg/dL (<2.0)
== END 2021-04-22 06:12 | disposition home or self-care (01) ==
LOC: ED 15:59
DX: G43.909 Migraine, unspecified, not intractable, without status migrainosus (principal); R11.2 Nausea with vomiting, unspecified; M54.50 Low back pain, unspecified; R82.90 Unspecified abnormal findings in urine
CPT/HCPCS: 36415; 71046; 80053; 81001; 83690; 84703; 85025; 87086; 96372; 99283; J1885; J3490; Q0162

== ENCOUNTER 2021-05-19 13:21 | Emergency (ER) | payer MEDICAID ==
[2021-05-19 13:41] VITALS: BP 153/92
[2021-05-19] MEDS ORDERED: ONDANSETRON 4 MG ODT TAB PO ONE (18:36)
[2021-05-19] MEDS ORDERED: KETOROLAC 60 MG/2 ML INJ IM ONE (18:36)
[2021-05-19] MEDS ORDERED: predniSONE 20 MG TAB PO ONE (18:37)
--- NOTE | 2021-05-19 18:53 | Emergency Department Report ---
ED Back Pain/Injury HPI - General Chief Complaint: Back Pain/Injury Stated Complaint: MED CLEARENCE Source: patient Limitations: No Limitations - History of Present Illness Initial Comments: Patient is a 31-year-old female with a history of morbid obesity, hypertension, [id number] diabetes, GERD, migraine headaches, chronic low back pain and asthma who presents to the ED with complaint of acute exacerbation of her chronic low back pain that radiates to the left leg for the last 5 days. Patient states that she has been taking previously prescribed medications with no relief. Patient states that in the last 2 days she has not been able to sleep because of worsening low back pain. Patient denies nausea, vomiting, dizziness, syncope, chest pain, shortness of breath, dysuria, urinary frequency and urgency, abdominal pain, diarrhea, traumatic injury, heavy lifting, fall or neck pain, numbness and tingling or weakness of lower extremities bilaterally. MD Complaint: back pain (Low back pain that radiates to the left leg) -: Sudden, days(s) (5) Similar Symptoms Previously: Yes (Chronic low back pain) Place: home Radiation: left leg Severity: severe Severity scale (0 -10): 9 Quality: sharp, aching Consistency: constant Improves With: none Worsens With: movement, supine, sitting upright, walking, deep breaths/cough Context: while lifting, bending Associated Symptoms: denies other symptoms. denies: confusion, weakness, chest pain, numbness, difficulty walking, cough, difficulty urinating, diaphoresis, incontinence, fever/chills, headaches, abdominal pain, loss of appetite, malaise, nausea/vomiting, rash, seizure, shortness of breath, syncope Treatments Prior to Arrival: prescription analgesics - Related Data Home Medications Medication Instructions Recorded Confirmed Last Taken OXcarbazepine [Trileptal] 300 mg PO BID 06/25/18 06/27/18 06/30/18 Prochlorperazine Maleate 5 mg PO DAILY 07/01/18 07/01/18 06/30/18 [Compazine] traZODone [Desyrel] 200 mg PO BID 07/01/18 07/01/18 06/30/18 Previous Rx's Medication Instructions Recorded Last Taken Type traMADoL [Ultram 50 MG tab] 50 mg PO Q6H PRN #12 tablet 06/28/18 06/30/18 Rx Oxycodone HCl [oxyCODONE TAB] 10 mg PO Q6H PRN #30 tablet 07/01/18 Unknown Rx Lisinopril [Zestril TAB] 2.5 mg PO QDAY #30 tab 09/18/20 Unknown Rx Albuterol Mdi (or & Nicu Only) 2 puff IH QID PRN #8.5 gram 11/03/20 Unknown Rx [ProAir HFA Inhaler] Azithromycin [Zithromax TAB] 250 mg PO QDAY 4 Days #4 tablet 11/03/20 Unknown Rx Cetirizine HCl [All Day Allergy 10 mg PO DAILY 30 Days #30 capsule 11/03/20 Unknown Rx Relief] Prednisone [predniSONE 10 mg 10 mg PO .TAPER #1 tab.ds.pk 11/03/20 Unknown Rx (6-Day Pack, 21 Tabs)] Acetaminophen/Codeine [Tylenol 1 tab PO Q6H PRN #12 tab 01/25/21 Unknown Rx /Codeine # 3 tab] methOCARBAMOL [Robaxin TAB] 500 mg PO Q8H PRN #20 tablet 01/25/21 Unknown Rx Butalb/Acetamin/Caff 50-325-40 1 tab PO Q6HR PRN #20 tab 04/21/21 Unknown Rx [Fioricet 50-325-40] Ibuprofen [Motrin 800 MG tab] 800 mg PO Q8HR PRN #30 tablet 04/21/21 Unknown Rx cephALEXin [Keflex] 500 mg PO Q12HR #14 cap 04/21/21 Unknown Rx Fluconazole [Diflucan TAB] 200 mg PO QDAY #2 tablet 05/19/21 Unknown Rx Gabapentin 300 mg PO Q12H PRN #90 cap 05/19/21 Unknown Rx Naproxen 500 mg PO Q12H PRN #30 tablet 05/19/21 Unknown Rx Sulfamethoxazole/Trimethoprim 1 each PO Q12H #20 tab 05/19/21 Unknown Rx [Bactrim DS TAB] methOCARBAMOL [Robaxin TAB] 750 mg PO Q12H PRN #30 tab 05/19/21 Unknown Rx predniSONE [Deltasone] 60 mg PO QDAY #15 tab 05/19/21 Unknown Rx Allergies Allergy/AdvReac Type Severity Reaction Status Date / Time terfenadine [From Seldane] Allergy Rash Verified 05/19/21 13:37 ED Review of Systems ROS: Stated complaint: MED CLEARENCE Other details as noted in HPI Constitutional: denies: chills, fever Eyes: denies: eye pain, eye discharge, vision change ENT: denies: ear pain, throat pain Respiratory: denies: cough, shortness of breath, wheezing Cardiovascular: denies: chest pain, palpitations Endocrine: no symptoms reported Gastrointestinal: denies: abdominal pain, nausea, vomiting, diarrhea Genitourinary: denies: urgency, dysuria, discharge Musculoskeletal: back pain (Low back pain that radiates to the left leg), ar thralgia (Diffuse radicular left leg pain). 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 tonsillectomy - Social History Smoking Status: Current Every Day Smoker Substance Use Type: Alcohol, Prescribed - Medications Home Medications: Home Medications Medication Instructions Recorded Confirmed Last Taken Type OXcarbazepine [Trileptal] 300 mg PO BID 06/25/18 06/27/18 06/30/18 History traMADoL [Ultram 50 MG tab] 50 mg PO Q6H PRN #12 tablet 06/28/18 07/01/18 06/30/18 Rx Oxycodone HCl [oxyCODONE TAB] 10 mg PO Q6H PRN #30 tablet 07/01/18 Unknown Rx Prochlorperazine Maleate 5 mg PO DAILY 07/01/18 07/01/18 06/30/18 History [Compazine] traZODone [Desyrel] 200 mg PO BID 07/01/18 07/01/18 06/30/18 History Lisinopril [Zestril TAB] 2.5 mg PO QDAY #30 tab 05/11/21 Unknown Rx Albuterol Mdi (or & Nicu Only) 2 puff IH QID PRN #8.5 gram 11/03/20 Unknown Rx [ProAir HFA Inhaler] Azithromycin [Zithromax TAB] 250 mg PO QDAY 4 Days #4 tablet 11/03/20 Unknown Rx Cetirizine HCl [All Day Allergy 10 mg PO DAILY 30 Days #30 capsule 11/03/20 Unknown Rx Relief] Prednisone [predniSONE 10 mg 10 mg PO .TAPER #1 tab.ds.pk 11/03/20 Unknown Rx (6-Day Pack, 21 Tabs)] Acetaminophen/Codeine [Tylenol 1 tab PO Q6H PRN #12 tab 01/25/21 Unknown Rx /Codeine # 3 tab] methOCARBAMOL [Robaxin TAB] 500 mg PO Q8H PRN #20 tablet 01/25/21 Unknown Rx Butalb/Acetamin/Caff 50-325-40 1 tab PO Q6HR PRN #20 tab 04/21/21 Unknown Rx [Fioricet 50-325-40] Ibuprofen [Motrin 800 MG tab] 800 mg PO Q8HR PRN #30 tablet 04/21/21 Unknown Rx cephALEXin [Keflex] 500 mg PO Q12HR #14 cap 04/21/21 Unknown Rx Fluconazole [Diflucan TAB] 200 mg PO QDAY #2 tablet 05/19/21 Unknown Rx Gabapentin 300 mg PO Q12H PRN #90 cap 05/19/21 Unknown Rx Naproxen 500 mg PO Q12H PRN #30 tablet 05/19/21 Unknown Rx Sulfamethoxazole/Trimethoprim 1 each PO Q12H #20 tab 05/19/21 Unknown Rx [Bactrim DS TAB] methOCARBAMOL [Robaxin TAB] 750 mg PO Q12H PRN #30 tab 05/19/21 Unknown Rx predniSONE [Deltasone] 60 mg PO QDAY #15 tab 05/19/21 Unknown Rx ED Physical Exam - General Limitations: No Limitations General appearance: alert, in no apparent distress - Head Head exam: Present: atraumatic, normocephalic, normal inspection - Eye Eye exam: Present: normal appearance, PERRL, EOMI Pupils: Present: normal accommodation - ENT ENT exam: Present: normal exam, normal orophraynx, mucous membranes moist, TM's normal bilaterally, normal external ear exam - Neck Neck exam: Present: normal inspection, full ROM. Absent: tenderness - Respiratory Respiratory exam: Present: normal lung sounds bilaterally. Absent: respiratory distress, wheezes, rales, stridor, chest wall tenderness, accessory muscle use, prolonged expiratory - Cardiovascular Cardiovascular Exam: Present: normal rhythm, tachycardia, normal heart sounds. Absent: systolic murmur, diastolic murmur, rubs, gallop - GI/Abdominal GI/Abdominal exam: Present: soft, normal bowel sounds. Absent: tenderness, guarding, rigid, hyperactive bowel sounds, organomegaly, mass - Extremities Exam Extremities exam: Present: normal inspection, full ROM, normal capillary refill. Absent: tenderness - Back Exam Back exam: Present: normal inspection, full ROM, tenderness (Palpable lumbosacral paraspinal musculoskeletal tenderness), muscle spasm, paraspinal tenderness. Absent: CVA tenderness (R), CVA tenderness (L), vertebral tenderness - Neurological Exam Neurological exam: Present: alert, oriented X3, CN II-XII intact, normal gait, reflexes normal - Psychiatric Psychiatric exam: Present: normal affect, normal mood - Skin Skin exam: Present: warm, dry, intact, normal color. Absent: rash ED Course Vital Signs 05/19/21 13:40 Temperature 97.8 F Pulse Rate 109 H Respiratory 20 Rate Blood Pressure 153/92 O2 Sat by Pulse 99 Oximetry ED Medical Decision Making - Medical Decision Making This is a 31-year-old female with a history of morbid obesity, hypertension, ijz-vshvilv-ygzneroge diabetes, GERD, migraine headaches, chronic low back pain and asthma who presents to the ED with complaint of acute exacerbation of her chronic low back pain that radiates to the left leg for the last 5 days. Patient states that she has been taking previously prescribed medications with no relief. Patient states that in the last 2 days she has not been able to sleep because of worsening low back pain. In the ED, patient is alert and oriented x3 and is not in any distress. Patient was treated in the ED for pain. Urinalysis showed significant urinary tract infection with candidal vaginal infection. On reevaluation, patient's pain is well controlled medication. Patient will discharge home on pain medications and antibiotics and advised to continue taking her previously prescribed medication for pain. Patient was advised to follow-up with her primary care physician in 5 to 7 days for reevaluation or return to the ED immediately if symptoms get worse. - Differential Diagnosis Chronic pain; muscle spasm; sciatica; muscle strain; UTI Critical care attestation.: If time is entered above; I have spent that time in minutes in the direct care of this critically ill patient, excluding procedure time. ED Disposition Clinical Impression: Acute exacerbation of chronic low back pain, Spasm of muscle of lower back, Acute urinary tract infection, Candidal vaginitis Chronic low back pain with left-sided sciatica Qualifiers: Back pain laterality: left Qualified Code(s): M54.42 - Lumbago with sciatica, left side Disposition: HOME / SELF CARE / HOMELESS Is pt being admited?: No Does the pt Need Aspirin: No Condition: Stable Instructions: Muscle Cramps and Spasms, Csow-br-[id number], Sciatica, [id number]-[id number], Chronic Back Pain, [id number], Vaginal Yeast Infection, Adult, Urinary Tract Infection, Adult, Edcn-py-Cstn Additional Instructions: Take medication with food, drink plenty of fluids and follow-up with your primary care physician in 7 to 10 days for reevaluation. Return to the ED immediately if symptoms get worse. Prescriptions: Sulfamethoxazole/Trimethoprim [Bactrim DS TAB] 1 each PO Q12H #20 tab predniSONE [Deltasone] 60 mg PO QDAY #15 tab Fluconazole [Diflucan TAB] 200 mg PO QDAY #2 tablet Gabapentin 300 mg PO Q12H PRN #90 cap PRN Reason: Pain , Severe (7-10) Naproxen 500 mg PO Q12H PRN #30 tablet PRN Reason: Pain , Severe (7-10) methOCARBAMOL [Robaxin TAB] 750 mg PO Q12H PRN #30 tab PRN Reason: Muscle Spasm Referrals: PRIMARY CARE, [Primary Care Provider] - 3-5 Days Forms: Work/School Release Form(ED) Time of Disposition: 18:53 Print Language: M[place]GR[place]
[2021-05-19] MEDS ORDERED: MORPHINE 15 MG TAB PO ONE ×2 (20:00→20:23)
[2021-05-19 20:05] LABS: Bacteria,Urine 4+ /HPF (Negative); Bilirubin,Urine NEG (Negative); Blood,Urine SM (Negative); Color,Urine Yellow (Yellow); Mucus,Urine 1+ /HPF; Protein,Urine <15 mg/dL mg/dL (Negative); Urobilinogen,Urine < 2.0 mg/dL (<2.0)
[2021-05-19 20:11] LABS: HCG Qualitative,Urine Negative (Negative)
== END 2021-05-19 20:43 | disposition home or self-care (01) ==
LOC: ED 13:21
DX: M54.42 Lumbago with sciatica, left side (principal); N39.0 Urinary tract infection, site not specified; B37.3 Candidiasis of vulva and vagina; M62.830 Muscle spasm of back; I10 Essential (primary) hypertension; K21.9 Gastro-esophageal reflux disease without esophagitis; G43.909 Migraine, unspecified, not intractable, without status migrainosus; J45.909 Unspecified asthma, uncomplicated; Z79.899 Other long term (current) drug therapy; Z88.8 Allergy status to other drugs, medicaments and biological substances
CPT/HCPCS: 81001; 81025; 87086; 96372; 99283; J1885; J7512; J3490; Q0162

== ENCOUNTER 2021-08-15 11:06 | Emergency (ER) | payer MEDICAID ==
[2021-08-15 12:16] VITALS: BP 128/81
--- NOTE | 2021-08-15 12:28 | Emergency Department Report ---
ED General Adult HPI - General Chief complaint: Chest Pain Stated complaint: JENNYFER NOT FEELING WELL Time Seen by Provider: 08/15/21 12:21 Source: patient Mode of arrival: Ambulatory Limitations: No Limitations - History of Present Illness Initial comments: Patient is a 31-year-old patient obese female that comes to the emergency room complaining of chest pain. The pain is sharp and worse with movement. She called her primary care who told her to come to the ER because she has a family history of coronary disease. Patient denies shortness of breath. She denies fever or chills. She is ambulatory, [id number] nontoxic on arrival to ER. -: Sudden, hour(s) Severity scale (0 -10): 0 Quality: sharp Consistency: intermittent Improves with: immobilization Worsens with: movement Associated Symptoms: denies other symptoms, chest pain. denies: confusion, cough, diaphoresis, fever/chills, headaches, loss of appetite, malaise, nausea/vomiting, rash, seizure, shortness of breath, syncope, weakness Treatments Prior to Arrival: none - Related Data Home Medications Medication Instructions Recorded Confirmed Last Taken OXcarbazepine [Trileptal] 300 mg PO BID 06/25/18 06/27/18 06/30/18 Prochlorperazine Maleate 5 mg PO DAILY 07/01/18 07/01/18 06/30/18 [Compazine] traZODone [Desyrel] 200 mg PO BID 07/01/18 07/01/18 06/30/18 Previous Rx's Medication Instructions Recorded Last Taken Type traMADoL [Ultram 50 MG tab] 50 mg PO Q6H PRN #12 tablet 06/28/18 06/30/18 Rx Oxycodone HCl [oxyCODONE TAB] 10 mg PO Q6H PRN #30 tablet 07/01/18 Unknown Rx Lisinopril [Zestril TAB] 2.5 mg PO QDAY #30 tab 09/18/20 Unknown Rx Albuterol Mdi (or & Nicu Only) 2 puff IH QID PRN #8.5 gram 11/03/20 Unknown Rx [ProAir HFA Inhaler] Azithromycin [Zithromax TAB] 250 mg PO QDAY 4 Days #4 tablet 11/03/20 Unknown Rx Cetirizine HCl [All Day Allergy 10 mg PO DAILY 30 Days #30 capsule 11/03/20 Unknown Rx Relief] Prednisone [predniSONE 10 mg 10 mg PO .TAPER #1 tab.ds.pk 11/03/20 Unknown Rx (6-Day Pack, 21 Tabs)] Acetaminophen/Codeine [Tylenol 1 tab PO Q6H PRN #12 tab 01/25/21 Unknown Rx /Codeine # 3 tab] methOCARBAMOL [Robaxin TAB] 500 mg PO Q8H PRN #20 tablet 01/25/21 Unknown Rx Butalb/Acetamin/Caff 50-325-40 1 tab PO Q6HR PRN #20 tab 04/21/21 Unknown Rx [Fioricet 50-325-40] Ibuprofen [Motrin 800 MG tab] 800 mg PO Q8HR PRN #30 tablet 04/21/21 Unknown Rx cephALEXin [Keflex] 500 mg PO Q12HR #14 cap 04/21/21 Unknown Rx Fluconazole [Diflucan TAB] 200 mg PO QDAY #2 tablet 05/19/21 Unknown Rx Gabapentin 300 mg PO Q12H PRN #90 cap 05/19/21 Unknown Rx Naproxen 500 mg PO Q12H PRN #30 tablet 05/19/21 Unknown Rx Sulfamethoxazole/Trimethoprim 1 each PO Q12H #20 tab 05/19/21 Unknown Rx [Bactrim DS TAB] methOCARBAMOL [Robaxin TAB] 750 mg PO Q12H PRN #30 tab 05/19/21 Unknown Rx predniSONE [Deltasone] 60 mg PO QDAY #15 tab 05/19/21 Unknown Rx Allergies Allergy/AdvReac Type Severity Reaction Status Date / Time terfenadine [From Seldane] Allergy Rash Verified 05/19/21 13:37 ED Review of Systems ROS: Stated complaint: PAIAN NOT FEELING WELL Other details as noted in HPI Comment: All other systems reviewed and negative ED Past Medical Hx - Past Medical History Previous Medical History?: Yes Hx Hypertension: Yes Hx Congestive Heart Failure: No Hx Diabetes: Yes (borderline) Hx Deep Vein Thrombosis: No Hx GERD: Yes Hx Renal Disease: No Hx Sickle Cell Disease: No Hx Headaches / Migraines: Yes (MIGRAINES) Hx Seizures: No 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 tonsillectomy - Family History Family history: CAD/[place] - Social History Smoking Status: Current Some Day Smoker Substance Use Type: None - Medications Home Medications: Home Medications Medication Instructions Recorded Confirmed Last Taken Type OXcarbazepine [Trileptal] 300 mg PO BID 06/25/18 06/27/18 06/30/18 History traMADoL [Ultram 50 MG tab] 50 mg PO Q6H PRN #12 tablet 06/28/18 07/01/18 06/30/18 Rx Oxycodone HCl [oxyCODONE TAB] 10 mg PO Q6H PRN #30 tablet 07/01/18 Unknown Rx Prochlorperazine Maleate 5 mg PO DAILY 07/01/18 07/01/18 06/30/18 History [Compazine] traZODone [Desyrel] 200 mg PO BID 07/01/18 07/01/18 06/30/18 History Lisinopril [Zestril TAB] 2.5 mg PO QDAY #30 tab 09/18/20 Unknown Rx Albuterol Mdi (or & Nicu Only) 2 puff IH QID PRN #8.5 gram 11/03/20 Unknown Rx [ProAir HFA Inhaler] Azithromycin [Zithromax TAB] 250 mg PO QDAY 4 Days #4 tablet 11/03/20 Unknown Rx Cetirizine HCl [All Day Allergy 10 mg PO DAILY 30 Days #30 capsule 11/03/20 Unknown Rx Relief] Prednisone [predniSONE 10 mg 10 mg PO .TAPER #1 tab.ds.pk 11/03/20 Unknown Rx (6-Day Pack, 21 Tabs)] Acetaminophen/Codeine [Tylenol 1 tab PO Q6H PRN #12 tab 01/25/21 Unknown Rx /Codeine # 3 tab] methOCARBAMOL [Robaxin TAB] 500 mg PO Q8H PRN #20 tablet 01/25/21 Unknown Rx Butalb/Acetamin/Caff 50-325-40 1 tab PO Q6HR PRN #20 tab 04/21/21 Unknown Rx [Fioricet 50-325-40] Ibuprofen [Motrin 800 MG tab] 800 mg PO Q8HR PRN #30 tablet 04/21/21 Unknown Rx cephALEXin [Keflex] 500 mg PO Q12HR #14 cap 04/21/21 Unknown Rx Fluconazole [Diflucan TAB] 200 mg PO QDAY #2 tablet 05/19/21 Unknown Rx Gabapentin 300 mg PO Q12H PRN #90 cap 05/19/21 Unknown Rx Naproxen 500 mg PO Q12H PRN #30 tablet 05/19/21 Unknown Rx Sulfamethoxazole/Trimethoprim 1 each PO Q12H #20 tab 05/19/21 Unknown Rx [Bactrim DS TAB] methOCARBAMOL [Robaxin TAB] 750 mg PO Q12H PRN #30 tab 05/19/21 Unknown Rx predniSONE [Deltasone] 60 mg PO QDAY #15 tab 05/19/21 Unknown Rx ED Physical Exam - General Limitations: No Limitations General appearance: alert, in no apparent distress - Head Head exam: Present: atraumatic, normocephalic - Eye Eye exam: Present: normal appearance - ENT ENT exam: Present: mucous membranes moist - Neck Neck exam: Present: normal inspection - Respiratory Respiratory exam: Present: normal lung sounds bilaterally. Absent: respiratory distress - Cardiovascular Cardiovascular Exam: Present: regular rate, normal rhythm. Absent: systolic murmur, diastolic murmur, rubs, gallop - GI/Abdominal GI/Abdominal exam: Present: soft, normal bowel sounds - Extremities Exam Extremities exam: Present: normal inspection - Back Exam Back exam: Present: normal inspection - Neurological Exam Neurological exam: Present: alert, oriented X3 - Psychiatric Psychiatric exam: Present: normal affect, normal mood - Skin Skin exam: Present: warm, dry, intact, normal color. Absent: rash ED Course Vital Signs 08/15/21 12:09 Temperature 98.3 F Pulse Rate 83 Respiratory 18 Rate Blood Pressure 128/81 Blood Pressure 128/81 [Right] O2 Sat by Pulse 99 Oximetry ED Medical Decision Making - EKG Data EKG shows normal: sinus rhythm Rate: normal - EKG Data When compared to previous EKG there are: no significant change Interpretation: no acute changes - Medical Decision Making Vital Signs 08/15/21 12:09 Temperature 98.3 F Pulse Rate 83 Respiratory 18 Rate Blood Pressure 128/81 Blood Pressure 128/81 [Right] O2 Sat by Pulse 99 Oximetry EKG is done and is normal/baseline. Patient has had no pain in the emergency room unless I elicited with movement. Vital signs are normal. Patient was reassured and discharged home with discharge plan of care including diet, activity, medications and follow-up. She verbalizes understanding of plan of care - Differential Diagnosis chest wall pain Critical care attestation.: If time is entered above; I have spent that time in minutes in the direct care of this critically ill patient, excluding procedure time. ED Disposition Clinical Impression: Morbid obesity with BMI of 45.0-49.9, adult, Chest wall pain Disposition: HOME / SELF CARE / HOMELESS Is pt being admited?: No Does the pt Need Aspirin: No Condition: Stable Instructions: Nonspecific Chest Pain, Adult, Chest Wall Pain Additional Instructions: follow up with pcp in 48 hours motrin or tylenol for pain Referrals: BHAVIN TERRAZAS MD [Primary Care Provider] - 3-5 Days Time of Disposition: 12:28
--- NOTE | 2021-08-16 11:39 | Electrocardiograph Report ---
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 Electronically Signed On 08-16-2021 11:39:34 EDT by Carlo Archer
== END 2021-08-15 13:50 | disposition home or self-care (01) ==
LOC: ED 11:06
DX: R07.9 Chest pain, unspecified (principal); E66.01 Morbid (severe) obesity due to excess calories; Z68.42 Body mass index [BMI] 45.0-49.9, adult
CPT/HCPCS: 93005; 99282

== ENCOUNTER 2021-10-20 18:22 | Emergency (ER) | payer MEDICAID ==
[2021-10-21] MEDS ORDERED: KETOROLAC 60 MG/2 ML INJ IM STA (01:41)
--- NOTE | 2021-10-21 01:58 | Emergency Department Report ---
ED Back Pain/Injury HPI - General Chief Complaint: Back Pain/Injury Stated Complaint: BACK PAIN Time Seen by Provider: 10/21/21 01:38 Source: patient Limitations: No Limitations - History of Present Illness MD Complaint: back pain, back injury -: Gradual Similar Symptoms Previously: Yes Place: work Radiation: none Severity: mild, moderate Quality: dull Consistency: constant Improves With: none Worsens With: none Associated Symptoms: denies other symptoms, headaches. denies: chest pain, numbness - Related Data Home Medications Medication Instructions Recorded Confirmed Last Taken OXcarbazepine [Trileptal] 300 mg PO BID 06/25/18 06/27/18 06/30/18 Prochlorperazine Maleate 5 mg PO DAILY 07/01/18 07/01/18 06/30/18 [Compazine] traZODone [Desyrel] 200 mg PO BID 07/01/18 07/01/18 06/30/18 Previous Rx's Medication Instructions Recorded Last Taken Type traMADoL [Ultram 50 MG tab] 50 mg PO Q6H PRN #12 tablet 06/28/18 06/30/18 Rx Oxycodone HCl [oxyCODONE TAB] 10 mg PO Q6H PRN #30 tablet 07/01/18 Unknown Rx Lisinopril [Zestril TAB] 2.5 mg PO QDAY #30 tab 09/18/20 Unknown Rx Albuterol Mdi (or & Nicu Only) 2 puff IH QID PRN #8.5 gram 11/03/20 Unknown Rx [ProAir HFA Inhaler] Azithromycin [Zithromax TAB] 250 mg PO QDAY 4 Days #4 tablet 11/03/20 Unknown Rx Cetirizine HCl [All Day Allergy 10 mg PO DAILY 30 Days #30 capsule 11/03/20 Unknown Rx Relief] Prednisone [predniSONE 10 mg 10 mg PO .TAPER #1 tab.ds.pk 11/03/20 Unknown Rx (6-Day Pack, 21 Tabs)] Acetaminophen/Codeine [Tylenol 1 tab PO Q6H PRN #12 tab 01/25/21 Unknown Rx /Codeine # 3 tab] methOCARBAMOL [Robaxin TAB] 500 mg PO Q8H PRN #20 tablet 01/25/21 Unknown Rx Butalb/Acetamin/Caff 50-325-40 1 tab PO Q6HR PRN #20 tab 04/21/21 Unknown Rx [Fioricet 50-325-40] Ibuprofen [Motrin 800 MG tab] 800 mg PO Q8HR PRN #30 tablet 04/21/21 Unknown Rx cephALEXin [Keflex] 500 mg PO Q12HR #14 cap 04/21/21 Unknown Rx Fluconazole [Diflucan TAB] 200 mg PO QDAY #2 tablet 05/19/21 Unknown Rx Gabapentin 300 mg PO Q12H PRN #90 cap 05/19/21 Unknown Rx Naproxen 500 mg PO Q12H PRN #30 tablet 05/19/21 Unknown Rx Sulfamethoxazole/Trimethoprim 1 each PO Q12H #20 tab 05/19/21 Unknown Rx [Bactrim DS TAB] methOCARBAMOL [Robaxin TAB] 750 mg PO Q12H PRN #30 tab 05/19/21 Unknown Rx predniSONE [Deltasone] 60 mg PO QDAY #15 tab 05/19/21 Unknown Rx Ketorolac [Toradol] 10 mg PO Q6H PRN #15 tablet 10/21/21 Unknown Rx methOCARBAMOL [Robaxin] 750 mg PO Q8H PRN #21 tablet 10/21/21 Unknown Rx Allergies Allergy/AdvReac Type Severity Reaction Status Date / Time terfenadine [From Seldane] Allergy Rash Verified 05/19/21 13:37 ED Review of Systems ROS: Stated complaint: BACK PAIN Other details as noted in HPI Comment: All other systems reviewed and negative ED Past Medical Hx - Past Medical History Previous Medical History?: Yes Hx Hypertension: Yes Hx Congestive Heart Failure: No Hx Diabetes: Yes (borderline) Hx Deep Vein Thrombosis: No Hx GERD: Yes Hx Renal Disease: No Hx Sickle Cell Disease: No Hx Headaches / Migraines: Yes (MIGRAINES) Hx Seizures: No 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 tonsillectomy - Social History Smoking Status: Current Some Day Smoker Substance Use Type: None - Medications Home Medications: Home Medications Medication Instructions Recorded Confirmed Last Taken Type OXcarbazepine [Trileptal] 300 mg PO BID 06/25/18 06/27/18 06/30/18 History traMADoL [Ultram 50 MG tab] 50 mg PO Q6H PRN #12 tablet 06/28/18 07/01/18 06/30/18 Rx Oxycodone HCl [oxyCODONE TAB] 10 mg PO Q6H PRN #30 tablet 07/01/18 Unknown Rx Prochlorperazine Maleate 5 mg PO DAILY 07/01/18 07/01/18 06/30/18 History [Compazine] traZODone [Desyrel] 200 mg PO BID 07/01/18 07/01/18 06/30/18 History Lisinopril [Zestril TAB] 2.5 mg PO QDAY #30 tab 09/18/20 Unknown Rx Albuterol Mdi (or & Nicu Only) 2 puff IH QID PRN #8.5 gram 11/03/20 Unknown Rx [ProAir HFA Inhaler] Azithromycin [Zithromax TAB] 250 mg PO QDAY 4 Days #4 tablet 11/03/20 Unknown Rx Cetirizine HCl [All Day Allergy 10 mg PO DAILY 30 Days #30 capsule 11/03/20 Unknown Rx Relief] Prednisone [predniSONE 10 mg 10 mg PO .TAPER #1 tab.ds.pk 11/03/20 Unknown Rx (6-Day Pack, 21 Tabs)] Acetaminophen/Codeine [Tylenol 1 tab PO Q6H PRN #12 tab 01/25/21 Unknown Rx /Codeine # 3 tab] methOCARBAMOL [Robaxin TAB] 500 mg PO Q8H PRN #20 tablet 01/25/21 Unknown Rx Butalb/Acetamin/Caff 50-325-40 1 tab PO Q6HR PRN #20 tab 04/21/21 Unknown Rx [Fioricet 50-325-40] Ibuprofen [Motrin 800 MG tab] 800 mg PO Q8HR PRN #30 tablet 04/21/21 Unknown Rx cephALEXin [Keflex] 500 mg PO Q12HR #14 cap 04/21/21 Unknown Rx Fluconazole [Diflucan TAB] 200 mg PO QDAY #2 tablet 05/19/21 Unknown Rx Gabapentin 300 mg PO Q12H PRN #90 cap 05/19/21 Unknown Rx Naproxen 500 mg PO Q12H PRN #30 tablet 05/19/21 Unknown Rx Sulfamethoxazole/Trimethoprim 1 each PO Q12H #20 tab 05/19/21 Unknown Rx [Bactrim DS TAB] methOCARBAMOL [Robaxin TAB] 750 mg PO Q12H PRN #30 tab 05/19/21 Unknown Rx predniSONE [Deltasone] 60 mg PO QDAY #15 tab 05/19/21 Unknown Rx Ketorolac [Toradol] 10 mg PO Q6H PRN #15 tablet 10/21/21 Unknown Rx methOCARBAMOL [Robaxin] 750 mg PO Q8H PRN #21 tablet 10/21/21 Unknown Rx ED Physical Exam - General Limitations: No Limitations General appearance: alert, in no apparent distress - Head Head exam: Present: atraumatic, normocephalic - Eye Eye exam: Present: normal appearance, PERRL, EOMI Pupils: Present: normal accommodation - ENT ENT exam: Present: mucous membranes moist - Neck Neck exam: Present: normal inspection - Respiratory Respiratory exam: Present: normal lung sounds bilaterally. Absent: respiratory distress - Cardiovascular Cardiovascular Exam: Present: regular rate, normal rhythm. Absent: systolic murmur, diastolic murmur, rubs, gallop - GI/Abdominal GI/Abdominal exam: Present: soft, normal bowel sounds - Extremities Exam Extremities exam: Present: normal inspection - Back Exam Back exam: Present: normal inspection, tenderness, paraspinal tenderness. Absent: CVA tenderness (R), CVA tenderness (L), muscle spasm - Neurological Exam Neurological exam: Present: alert, oriented X3, CN II-XII intact, normal gait, reflexes normal - Psychiatric Psychiatric exam: Present: normal affect, normal mood - Skin Skin exam: Present: warm, dry, intact, normal color. Absent: rash ED Course Vital Signs 10/20/21 18:30 Temperature 97.7 F Pulse Rate 108 H Respiratory 18 Rate Blood Pressure 140/86 [Right] O2 Sat by Pulse 99 Oximetry ED Medical Decision Making - Medical Decision Making Pt presents the emergency department complaining of back pain most consistent with nonemergent back Pain Most Consistent with Strain/Contusion. Differential Diagnosis Includes Lumbar Go Versus Musculoskeletal Spasm, Strain Versus Sciatica. No Back Pain Red Flags on History or Physical. Presentation Not Consistent with Malignancy, Fracture, Cauda Equina, Abdominal Aortic Aneurysm, Viscus Perforation, Pulmonary Embolism, Renal Colic, Pyelonephritis. Patient reports no B symptoms, trauma trauma, incontinence, saddle anesthesia, distal weakness, urinary symptoms and is a febrile. Critical care attestation.: If time is entered above; I have spent that time in minutes in the direct care of this critically ill patient, excluding procedure time. ED Disposition Clinical Impression: Lumbago Disposition: 01 HOME / SELF CARE / HOMELESS Is pt being admited?: No Does the pt Need Aspirin: No Condition: Stable Instructions: Acute Back Pain, Adult, What You Need to Know About Chronic Back Pain, Radiofrequency Lesioning, Back Exercises, [id number], Low Back Sprain or Strain Rehab-SportsMed, Myelogram Prescriptions: methOCARBAMOL [Robaxin] 750 mg PO Q8H PRN #21 tablet PRN Reason: Spasms Ketorolac [Toradol] 10 mg PO Q6H PRN #15 tablet PRN Reason: Pain Referrals: [facility] [Provider Group] - 3-5 Days
[2021-10-21 03:56] VITALS: BP 143/84
== END 2021-10-21 04:14 | disposition home or self-care (01) ==
LOC: ED 18:22
DX: M54.50 Low back pain, unspecified (principal); I10 Essential (primary) hypertension; E11.9 Type 2 diabetes mellitus without complications; J45.909 Unspecified asthma, uncomplicated; G43.909 Migraine, unspecified, not intractable, without status migrainosus; F17.200 Nicotine dependence, unspecified, uncomplicated; Z91.09 Other allergy status, other than to drugs and biological substances; Z79.899 Other long term (current) drug therapy
CPT/HCPCS: 96372; 99282; J1885

== ENCOUNTER 2021-11-06 12:00 | Emergency (ER) | payer MEDICAID ==
[2021-11-06 12:19] VITALS: BP 140/81
[2021-11-06] MEDS ORDERED: SODIUM CHLORIDE 0.9% 1000 ML 1,000 ML IV ONE ×2 (12:28→17:00)
--- NOTE | 2021-11-06 12:28 | Emergency Department Report ---
Chief Complaint: Nausea/Vomiting/Diarrhea Stated Complaint: GENERAL SICKNESS - HPI History of Present Illness: 31-year-old female with past medical history of hypertension diabetes that is well controlled per patient report reports to the ER with complaints of nausea vomiting and diarrhea since Thursday. Patient reports no other acute symptoms at this moment. Patient reports that she is unable to eat or drink since Thursday due to nausea and vomiting. - Exam Vital Signs: Vital Signs 11/06/21 12:16 Temperature 98.5 F Pulse Rate 93 H Respiratory 18 Rate Blood Pressure 140/81 [Right] O2 Sat by Pulse 96 Oximetry Vital signs stable Physical Exam: Patient in no acute distress. Patient patient has no labored breathing. Patient is ambulatory with no acute distress. MSE screening note: Focused history and physical exam performed. Due to findings the following was ordered: Labs will be placed patient will be further evaluated in the back by another provider. ED Disposition for MSE Condition: Stable
[2021-11-06 13:07] LABS: Basophils % (Auto) 0.3 % (0.0-1.8); Eosinophils % (Auto) 0.4 % (0.0-4.3); Hematocrit 39.6 % (30.3-42.9); Hemoglobin 13.5 gm/dl (10.1-14.3); Lymphocytes # (Auto) 1.2 K/mm3 (1.2-5.4); Lymphocytes % (Auto) 23.6 % (13.4-35.0); Mean Corpuscular HGB Conc 34 % (30-34); Mean Corpuscular Volume 80 fl (79-97); Monocytes # (Auto) 0.3 K/mm3 (0.0-0.8); Monocytes % (Auto) 6.6 % (0.0-7.3); Platelet Count 175 K/mm3 (140-440); Red Blood Count 4.95 M/mm3 (3.65-5.03); Red Cell Distribution Width 13.9 % (13.2-15.2)
[2021-11-06 13:33] LABS: Alanine Aminotransferase 14 units/L (7-56); Albumin 3.9 g/dL (3.9-5); BUN/Creatinine Ratio 9; Blood Urea Nitrogen 7 mg/dL (7-17); Hemolysis Index 1
[2021-11-06] MEDS ORDERED: METOCLOPRAMIDE 10 MG/2 ML INJ IV ONE (16:04)
[2021-11-06] MEDS ORDERED: dexAMETHasone 4 MG/ML VIAL IV ONE (16:04)
[2021-11-06] MEDS ORDERED: diphenhydrAMINE 50 MG/ML VIAL IV ONE (16:04)
[2021-11-06 17:11] LABS: HCG Qualitative,Urine Negative (Negative)
[2021-11-06 17:13] LABS: Bilirubin,Urine NEG (Negative); Blood,Urine SM (Negative); Color,Urine Yellow (Yellow); Urobilinogen,Urine < 2.0 mg/dL (<2.0)
[2021-11-06 17:18] LABS: Bacteria,Urine 4+ /HPF (Negative); Mucus,Urine 3+ /HPF
[2021-11-06 17:24] LABS: RBC,Urine > 182.0 /HPF (0.0-6.0); WBC,Urine > 182.0 /HPF (0.0-6.0)
[2021-11-06] MEDS ORDERED: cefTRIAXone/NS 1 GM/50 ML 1 GM/50 ML BAG IV ONE (17:26)
--- NOTE | 2021-11-06 17:37 | Emergency Department Report ---
ED Abdominal Pain HPI - General Chief Complaint: Nausea/Vomiting/Diarrhea Stated Complaint: GENERAL SICKNESS Time Seen by Provider: 11/06/21 15:32 Source: patient Mode of arrival: Ambulatory Limitations: No Limitations - History of Present Illness Initial Comments: 31-year-old white female with a past medical history of hypertension, diabetes, and migraine headaches presents to the emergency department for evaluation of 3- day history of nausea, vomiting, decreased appetite, headache, and weakness. She states that she has had a fever also but denies abdominal pain, diarrhea, and vaginal discharge. She states that headache is 6 out of 10 and worse when she moves around a lot. She states that she usually takes Fioricet at home for migraine headaches but has run out of it. MD Complaint: other (Headache) -: Gradual, days(s) (30) Associated Symptoms: nausea, vomiting, fever. denies: diarrhea, chills, dysuria, hematemesis, hematochezia, melena, hematuria, anorexia - Related Data LMP (females 10-50): 1 month Previous Rx's Medication Instructions Recorded Last Taken Type Butalb/Acetaminophen/Caffeine 1 cap PO Q6HR PRN #12 cap 11/06/21 Unknown Rx [Fioricet 50-300-40 mg CAP] Ondansetron [Zofran Odt] 4 mg PO Q8HR PRN #12 tab.rapdis 11/06/21 Unknown Rx cephALEXin [Keflex] 500 mg PO BID 7 Days #14 cap 11/06/21 Unknown Rx Allergies Allergy/AdvReac Type Severity Reaction Status Date / Time terfenadine [From Seldane] Allergy Intermediate Rash Verified 11/06/21 12:19 ED Review of Systems ROS: Stated complaint: GENERAL SICKNESS Other details as noted in HPI Comment: All other systems reviewed and negative Constitutional: fever, weakness. denies: chills, malaise Eyes: denies: vision change ENT: denies: dental pain, congestion Respiratory: denies: cough, shortness of breath, SOB with exertion, SOB at rest, stridor Cardiovascular: denies: chest pain, palpitations Gastrointestinal: nausea, vomiting. denies: abdominal pain, diarrhea, hematemesis, melena, hematochezia Genitourinary: denies: urgency, dysuria, frequency, hematuria, discharge, abnormal menses, dyspareunia Musculoskeletal: denies: back pain Skin: denies: rash, lesions Neurological: headache, weakness. 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 tonsillectomy - Social History Smoking Status: Current Some Day Smoker Substance Use Type: None - Medications Home Medications: Home Medications Medication Instructions Recorded Confirmed Last Taken Type Butalb/Acetaminophen/Caffeine 1 cap PO Q6HR PRN #12 cap 11/06/21 Unknown Rx [Fioricet 50-300-40 mg CAP] Ondansetron [Zofran Odt] 4 mg PO Q8HR PRN #12 tab.rapdis 11/06/21 Unknown Rx cephALEXin [Keflex] 500 mg PO BID 7 Days #14 cap 11/06/21 Unknown Rx ED Physical Exam - General Limitations: No Limitations General appearance: alert, in no apparent distress - Head Head exam: Present: atraumatic, normocephalic - Eye Eye exam: Present: normal appearance. Absent: scleral icterus, conjunctival injection - ENT ENT exam: Present: normal exam, normal orophraynx - Neck Neck exam: Present: normal inspection, full ROM. Absent: tenderness, lymphadenopathy, thyromegaly - Respiratory Respiratory exam: Present: normal lung sounds bilaterally. Absent: respiratory distress, wheezes, rales, rhonchi, stridor, chest wall tenderness - Cardiovascular Cardiovascular Exam: Present: regular rate, normal heart sounds - GI/Abdominal GI/Abdominal exam: Present: soft, normal bowel sounds. Absent: distended, tenderness (Bilateral), guarding, rebound, rigid - Extremities Exam Extremities exam: Present: normal inspection, normal capillary refill. Absent: pedal edema, joint swelling, calf tenderness - Back Exam Back exam: Present: normal inspection. Absent: CVA tenderness (R), CVA tenderness (L), vertebral tenderness - Neurological Exam Neurological exam: Present: alert, oriented X3, CN II-XII intact, normal gait, reflexes normal. Absent: motor sensory deficit - Psychiatric Psychiatric exam: Present: normal affect, normal mood - Skin Skin exam: Present: warm, dry, intact, normal color ED Course Vital Signs 11/06/21 12:16 Temperature 98.5 F Pulse Rate 93 H Respiratory 18 Rate Blood Pressure 140/81 [Right] O2 Sat by Pulse 96 Oximetry ED Medical Decision Making - Lab Data Result diagrams: 11/06/21 12:36 11/06/21 12:36 - Medical Decision Making 31-year-old white female with a past medical history of hypertension, diabetes, and migraine headaches presents to the emergency department for evaluation of 3-day history of nausea, vomiting, decreased appetite, headache, and weakness. She states that she has had a fever also but denies abdominal pain, diarrhea, and vaginal discharge. She states that headache is 6 out of 10 and worse when she moves around a lot. She states that she usually takes Fioricet at home for migraine headaches but has run out of it. Physical exam unremarkable, and labs without any gross abnormalities noted. Headache nausea vomiting totally resolved after medication. Urine positive for urinary tract infection. Patient given Rocephin 1 g IV in the emergency department and discharged home with 7-day course of Keflex along with Zofran to use as needed for nausea. Prescription for Fioricet refilled for headaches. She is advised to take medications as prescribed. Drink plenty of noncaffeinated fluids. Follow-up with her primary care provider if worsening symptoms, and return to the emergency department as needed. She verbalizes understanding of and agreement with plan of care. Critical care attestation.: If time is entered above; I have spent that time in minutes in the direct care of this critically ill patient, excluding procedure time. ED Disposition Clinical Impression: UTI (urinary tract infection) Qualifiers: Urinary tract infection type: acute cystitis Hematuria presence: without hematuria Qualified Code(s): N30.00 - Acute cystitis without hematuria Headache Qualifiers: Headache type: unspecified Headache chronicity pattern: acute headache Intractability: intractable Qualified Code(s): R51.9 - Headache, unspecified Disposition: 01 HOME / SELF CARE / HOMELESS Is pt being admited?: No Does the pt Need Aspirin: No Condition: Stable Instructions: Urinary Tract Infection, Adult, Zelt-[id number], General Headache Without Cause, [id number] Additional Instructions: Take medications as prescribed. Follow-up with primary care provider if no improvement or worsening symptoms. Return to the emergency department as needed. Prescriptions: Butalb/Acetaminophen/Caffeine [Fioricet 50-300-40 mg CAP] 1 cap PO Q6HR PRN #12 cap PRN Reason: Headache cephALEXin [Keflex] 500 mg PO BID 7 Days #14 cap Ondansetron [Zofran Odt] 4 mg PO Q8HR PRN #12 tab.rapdis PRN Reason: Nausea And Vomiting Referrals: BHAVIN TERRAZAS MD [Primary Care Provider] - 3-5 Days Forms: Work/School Release Form(ED) Time of Disposition: 17:36 ED Headache HPI - General Chief Complaint: Nausea/Vomiting/Diarrhea Stated Complaint: GENERAL SICKNESS Time Seen by Provider: 11/06/21 15:32 - History of Present Illness Timing/Duration: episodic (Past 2 to 3 days) Quality: moderate Head Injury Location: frontal Associated Symptoms: fever/chills, weakness. denies: confusion, fatigue, facial pain, flushing, loss of consciousness, nasal congestion, nasal drainage, numbness in legs/feet, rash, seizures, sinus infection, stiff neck, vision changes Allergies/Adverse Reactions: Allergies terfenadine [From Seldane] Allergy (Intermediate, Verified 11/06/21 12:19) Rash Home Medications: Ambulatory Orders Butalb/Acetaminophen/Caffeine [Fioricet 50-300-40 mg CAP] 1 cap PO Q6HR PRN #12 cap 11/06/21 Ondansetron [Zofran Odt] 4 mg PO Q8HR PRN #12 tab.rapdis 11/06/21 cephALEXin [Keflex] 500 mg PO BID 7 Days #14 cap 11/06/21
== END 2021-11-06 18:47 | disposition home or self-care (01) ==
LOC: ED 12:00
DX: N39.0 Urinary tract infection, site not specified (principal); G43.909 Migraine, unspecified, not intractable, without status migrainosus; I10 Essential (primary) hypertension; E11.9 Type 2 diabetes mellitus without complications; J45.909 Unspecified asthma, uncomplicated; E66.01 Morbid (severe) obesity due to excess calories; G89.29 Other chronic pain; M54.42 Lumbago with sciatica, left side; Z98.890 Other specified postprocedural states; F17.290 Nicotine dependence, other tobacco product, uncomplicated; Z88.8 Allergy status to other drugs, medicaments and biological substances
CPT/HCPCS: 36415; 80053; 81001; 81025; 85025; 96361; 96365; 96375; 99283; J0696; J1100; J1200; J2765; J7030

== ENCOUNTER 2021-12-23 21:14 | Emergency (ER) | payer MEDICAID ==
[2021-12-24] MEDS ORDERED: LIDOCAINE (2%) 20 MG/1 ML VIAL 20 ML MDV INFILTRATI ONE (02:41)
[2021-12-24] MEDS ORDERED: TETANUS,DIPH,PERTUSS(ACELL) VACCINE 0.5 ML SYRINGE IM ONE (04:54)
--- NOTE | 2021-12-24 05:01 | Emergency Department Report ---
ED Laceration HPI - HPI Chief Complaint: Wound/Laceration Stated Complaint: RT FINGER LACERATION Time Seen by Provider: 12/24/21 02:41 Location: Upper Extremity (Take a open can of this of 1 and a graze across index finger resulting in laceration to the pad of the finger and bleeding. Presents emerged department seeking a tetanus and closure of her laceration.) Severity: mild Tetanus Status: Not up to Date Laceration Symptoms: Yes Pain, No Foreign Body Sensation, No Numbness, No Weakness ED Review of Systems ROS: Stated complaint: RT FINGER LACERATION Other details as noted in HPI Comment: All other systems reviewed and negative ED Past Medical Hx - Past Medical History Hx Hypertension: Yes Hx Congestive Heart Failure: No Hx Diabetes: Yes (borderline) Hx Deep Vein Thrombosis: No Hx GERD: Yes Hx Renal Disease: No Hx Sickle Cell Disease: No Hx Headaches / Migraines: Yes (MIGRAINES) Hx Seizures: No 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 tonsillectomy - Social History Smoking Status: Current Some Day Smoker Substance Use Type: None - Medications Home Medications: Home Medications Medication Instructions Recorded Confirmed Last Taken Type Butalb/Acetaminophen/Caffeine 1 cap PO Q6HR PRN #12 cap 11/06/21 Unknown Rx [Fioricet 50-300-40 mg CAP] Ondansetron [Zofran Odt] 4 mg PO Q8HR PRN #12 tab.rapdis 11/06/21 Unknown Rx cephALEXin [Keflex] 500 mg PO BID 7 Days #14 cap 11/06/21 Unknown Rx Laceration Physical Exam - Exam General: Vital signs noted. No distress. Alert and acting appropriately. Wound Length (cm): 2 Laceration Location: Upper Extremity (Index finger) Laceration Exam: Yes Normal Distal CMS, No Foreign Body, No Exposed Tendon, Vessel, or Nerve, No Tendon Injury ED Course Vital Signs 12/23/21 21:52 Temperature 97.4 F L Pulse Rate 95 H Respiratory 18 Rate Blood Pressure 134/88 O2 Sat by Pulse 98 Oximetry - Laceration /Wound Repair Finger Wound Location: upper extremity Irrigated w/ Saline (ccs): 2 Anesthesia: 1% Lidocaine Volume Anesthetic (ccs): 3 Wound Repaired With: sutures Suture Size/Type: 5:0 (vicryl) Critical care attestation.: If time is entered above; I have spent that time in minutes in the direct care of this critically ill patient, excluding procedure time. ED Disposition Clinical Impression: Laceration of finger, Tetanus toxoid inoculation Disposition: HOME / SELF CARE / HOMELESS Is pt being admited?: No Does the pt Need Aspirin: No Condition: Stable Instructions: VIS, Tetanus, Diphtheria (Td); Tetanus, Diphtheria, Pertussis (Tdap) - CDC, Laceration Care, Adult, Sutures, Anand, or Adhesive Wound Closure Additional Instructions: Seen by emergency department for a laceration to your finger also provided with a tetanus shot. Please be sure to keep wound clean and dry and follow-up with your primary care provider in 2 to 3 days just to reevaluate and ensure there is no signs of infection. These are observable sutures no need to return for removal Referrals: BHAVIN TERRAZAS MD [Staff Physician] - 3-5 Days PRIMARY CARE, [Primary Care Provider] - 3-5 Days
[2021-12-24 05:36] VITALS: BP 131/87
== END 2021-12-24 05:35 | disposition home or self-care (01) ==
LOC: ED 21:14
DX: S61.210A Laceration without foreign body of right index finger without damage to nail, initial encounter (principal); Z23 Encounter for immunization; I10 Essential (primary) hypertension; E11.9 Type 2 diabetes mellitus without complications; K21.9 Gastro-esophageal reflux disease without esophagitis; G43.909 Migraine, unspecified, not intractable, without status migrainosus; J45.909 Unspecified asthma, uncomplicated; F17.200 Nicotine dependence, unspecified, uncomplicated; X58.XXXA Exposure to other specified factors, initial encounter; Y93.89 Activity, other specified; Y92.89 Other specified places as the place of occurrence of the external cause; Y99.8 Other external cause status
CPT/HCPCS: 12001; 90471; 90715; 99282; J3490

== ENCOUNTER 2022-01-09 12:58 | Emergency (ER) | payer MEDICAID ==
[2022-01-09 14:35] VITALS: BP 137/86
[2022-01-09] MEDS ORDERED: IBUPROFEN 600 MG TAB PO ONE (14:53)
[2022-01-09] MEDS ORDERED: SULFAMETHOXAZOLE/TRIMETHOPRIM 800/160MG DS TAB PO ONE (14:53)
[2022-01-09] MEDS ORDERED: predniSONE 50 MG TAB PO ONE (14:53)
[2022-01-09] MEDS ORDERED: HYDROcodone/ACETAMINOPHEN 5-325 MG TAB PO ONE (14:53)
--- NOTE | 2022-01-09 15:00 | Emergency Department Report ---
ED General Adult HPI - General Chief complaint: Extremity Problem,Nontraumatic Stated complaint: SWOLLEN RIGHT LEG/PAIN/HOT TO TOUCH Source: patient Mode of arrival: Ambulatory Limitations: No Limitations - History of Present Illness Initial comments: Patient is a 31-year-old female with a history of morbid obesity, hypertension, [id number]-[id number] diabetes, GERD, asthma who presents to the ED with complaint of acute onset persistent painful itchy erythematous maculopapular rash on posterior right lower leg for the last 2 days after being bitten by an unknown insect. Patient states that she has been applying ice packs on to the area but noticed that in the last 12 hours the pain and swelling and redness have spread and increased. Patient denies fever, chills, nausea and vomiting, numbness and tingling or weakness of right leg, cough, swollen lips, swollen tongue, dysphagia, dysphonia or shortness of breath and chest pain. MD Complaint: right lower leg pain, mildly erythematous rash -: Gradual, days(s) (2) Location: lower extremity (right lower leg) Radiation: non-radiation Severity scale (0 -10): 10 Quality: burning, aching, sharp, constant Consistency: constant Improves with: none Worsens with: movement Associated Symptoms: denies other symptoms, rash (erythematous maculopapular painful rash on posterior right lower leg). denies: chest pain, cough, diaphoresis, fever/chills, loss of appetite, malaise, nausea/vomiting, shortness of breath, syncope, weakness Treatments Prior to Arrival: none - Related Data Previous Rx's Medication Instructions Recorded Last Taken Type Butalb/Acetaminophen/Caffeine 1 cap PO Q6HR PRN #12 cap 11/06/21 Unknown Rx [Fioricet 50-300-40 mg CAP] Ondansetron [Zofran Odt] 4 mg PO Q8HR PRN #12 tab.rapdis 11/06/21 Unknown Rx cephALEXin [Keflex] 500 mg PO BID 7 Days #14 cap 11/06/21 Unknown Rx Ibuprofen [Motrin] 800 mg PO Q8HR PRN #30 tablet 01/09/22 Unknown Rx Sulfamethoxazole/Trimethoprim 1 each PO Q12H #20 tab 01/09/22 Unknown Rx [Bactrim DS TAB] traMADoL [Ultram] 50 mg PO Q6HR PRN #12 tablet 01/09/22 Unknown Rx Allergies Allergy/AdvReac Type Severity Reaction Status Date / Time terfenadine [From Seldane] Allergy Intermediate Rash Verified 11/06/21 12:19 ED Review of Systems ROS: Stated complaint: SWOLLEN RIGHT LEG/PAIN/HOT TO TOUCH Other details as noted in HPI Constitutional: denies: chills, fever Eyes: denies: eye pain, eye discharge, vision change ENT: denies: ear pain, throat pain Respiratory: denies: cough, shortness of breath, wheezing Cardiovascular: denies: chest pain, palpitations Endocrine: no symptoms reported Gastrointestinal: denies: abdominal pain, nausea, diarrhea Genitourinary: denies: urgency, dysuria, discharge Musculoskeletal: arthralgia (right lower leg pain due to erythematous maculopapular painful rashes), myalgia. denies: back pain, joint swelling Skin: rash (Erythematous maculopapular painful rash on right lower leg), change in color, pruritus. 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 tonsillectomy - Social History Smoking Status: Current Some Day Smoker Substance Use Type: None - Medications Home Medications: Home Medications Medication Instructions Recorded Confirmed Last Taken Type Butalb/Acetaminophen/Caffeine 1 cap PO Q6HR PRN #12 cap 11/06/21 Unknown Rx [Fioricet 50-300-40 mg CAP] Ondansetron [Zofran Odt] 4 mg PO Q8HR PRN #12 tab.rapdis 11/06/21 Unknown Rx cephALEXin [Keflex] 500 mg PO BID 7 Days #14 cap 11/06/21 Unknown Rx Ibuprofen [Motrin] 800 mg PO Q8HR PRN #30 tablet 01/09/22 Unknown Rx Sulfamethoxazole/Trimethoprim 1 each PO Q12H #20 tab 01/09/22 Unknown Rx [Bactrim DS TAB] traMADoL [Ultram] 50 mg PO Q6HR PRN #12 tablet 01/09/22 Unknown Rx ED Physical Exam - General Limitations: No Limitations General appearance: alert, in no apparent distress - Head Head exam: Present: atraumatic, normocephalic, normal inspection - Eye Eye exam: Present: normal appearance, PERRL, EOMI Pupils: Present: normal accommodation - ENT ENT exam: Present: normal exam, normal orophraynx, mucous membranes moist, TM's normal bilaterally, normal external ear exam - Neck Neck exam: Present: normal inspection, full ROM. Absent: tenderness - Respiratory Respiratory exam: Present: normal lung sounds bilaterally. Absent: respiratory distress, wheezes, rales, rhonchi, stridor, chest wall tenderness, accessory muscle use, prolonged expiratory, other - Cardiovascular Cardiovascular Exam: Present: regular rate, normal rhythm, normal heart sounds. Absent: systolic murmur, diastolic murmur, rubs, gallop - GI/Abdominal GI/Abdominal exam: Present: soft, normal bowel sounds. Absent: tenderness, guarding, rebound, rigid, hyperactive bowel sounds, hypoactive bowel sounds, organomegaly, mass, bruit - Extremities Exam Extremities exam: Present: normal inspection, full ROM, tenderness (Palpable tenderness of posterior right lower leg due to erythematous maculopapular nonfluctuant rash), normal capillary refill. Absent: pedal edema, joint swelling, calf tenderness - Back Exam Back exam: Present: normal inspection, full ROM. Absent: tenderness, CVA tenderness (R), CVA tenderness (L), muscle spasm, paraspinal tenderness, vertebral tenderness - Neurological Exam Neurological exam: Present: alert, oriented X3, CN II-XII intact, normal gait, reflexes normal - Psychiatric Psychiatric exam: Present: normal affect, normal mood - Skin Skin exam: Present: warm, dry, intact, normal color, rash (Erythematous maculopapular nonfluctuant rash on posterior right lower leg with localized tenderness), erythema. Absent: cyanosis, diaphoretic, urticaria, vesicles, petechiae, pallor, abrasion, ecchymosis ED Course Vital Signs 01/09/22 14:32 Temperature 98.7 F Pulse Rate 83 Respiratory 18 Rate Blood Pressure 137/86 [Right] O2 Sat by Pulse 100 Oximetry ED Medical Decision Making - Medical Decision Making This is a 31-year-old female with a history of morbid obesity, hypertension, [id number]-[id number] diabetes, GERD, asthma who presents to the ED with complaint of acute onset persistent painful itchy erythematous maculopapular rash on posterior right lower leg for the last 2 days after being bitten by an unknown insect. Patient states that she has been applying ice packs on to the area but noticed that in the last 12 hours the pain and swelling and redness have spread and increased. In the ED, patient is alert and oriented x3 and is not in any distress. Patient was treated for pain in the ED and also received initial oral antibiotics. Patient was discharged home on pain medication and antibiotics and advised to follow-up with her primary care physician in 7 to 10 days for reevaluation or return to the ED immediately if symptoms get worse. - Differential Diagnosis cellulitis; insect bite; folliculitis; allergic reaction Critical care attestation.: If time is entered above; I have spent that time in minutes in the direct care of this critically ill patient, excluding procedure time. ED Disposition Clinical Impression: Cellulitis of right lower extremity Insect bite of right lower leg with infection Qualifiers: Encounter type: initial encounter Qualified Code(s): S80.861A - Insect bite (nonvenomous), right lower leg, initial encounter; L08.9 - Local infection of the skin and subcutaneous tissue, unspecified; W57.XXXA - Bitten or stung by nonvenomous insect and other nonvenomous arthropods, initial encounter Insect bite of right lower leg with local reaction Qualifiers: Encounter type: initial encounter Qualified Code(s): S80.861A - Insect bite (nonvenomous), right lower leg, initial encounter; W57.XXXA - Bitten or stung by nonvenomous insect and other nonvenomous arthropods, initial encounter Disposition: 01 HOME / SELF CARE / HOMELESS Is pt being admited?: No Does the pt Need Aspirin: No Condition: Stable Instructions: Cellulitis, Adult, [id number], Insect Bite, Adult, [id number] Additional Instructions: Take medication with food, drink plenty fluids, follow-up with your primary care physician in 7 to 10 days for reevaluation. Return to the ED immediately if symptoms get worse. Prescriptions: Sulfamethoxazole/Trimethoprim [Bactrim DS TAB] 1 each PO Q12H #20 tab Ibuprofen [Motrin] 800 mg PO Q8HR PRN #30 tablet PRN Reason: Pain , Severe (7-10) traMADoL [Ultram] 50 mg PO Q6HR PRN #12 tablet PRN Reason: Pain Referrals: [facility] [Provider Group] - 7-10 days Time of Disposition: 15:04 Print Language: MALAYSIAN
== END 2022-01-09 17:05 | disposition home or self-care (01) ==
LOC: ED 12:58
DX: S80.861A Insect bite (nonvenomous), right lower leg, initial encounter (principal); L03.115 Cellulitis of right lower limb; I10 Essential (primary) hypertension; E11.9 Type 2 diabetes mellitus without complications; K21.9 Gastro-esophageal reflux disease without esophagitis; G43.909 Migraine, unspecified, not intractable, without status migrainosus; J45.909 Unspecified asthma, uncomplicated; Z91.09 Other allergy status, other than to drugs and biological substances; F17.200 Nicotine dependence, unspecified, uncomplicated; Z79.899 Other long term (current) drug therapy; W57.XXXA Bitten or stung by nonvenomous insect and other nonvenomous arthropods, initial encounter; Y93.89 Activity, other specified; Y92.89 Other specified places as the place of occurrence of the external cause; Y99.8 Other external cause status
CPT/HCPCS: 99282; J7512